=== PATIENT | female | born 1945 | race Caucasian/White ===

== ENCOUNTER 2020-06-21 14:52 | Emergency (ER) | payer MEDICARE, MEDICAID, SELFPAY ==
[2020-06-21] VITALS (20 sets, daily range): BP systolic 127–163; BP diastolic 62–76; PULSE 97–118; RESP 15–35; TEMP 36.2; O2SAT 97–100
--- NOTE | ~2020-06-21 | XR_ITS ---
EXAMINATION: XR chest 2V EXAM DATE: 06/21/2020 15:19 INDICATION: Shortness of breath with nonproductive cough. TECHNIQUE: Frontal and lateral projections of the chest obtained and reviewed. Comparison is made to prior examination from 06/01/2019. FINDINGS: The lungs are hyperinflated which can be seen with chronic obstructive pulmonary disease ( a clinical diagnosis of functional impairment), but is not diagnostic of it. The lungs are clear. Th ere are no pleural effusions. The cardiomediastinal silhouette is within normal limits. There is no pneumothorax suspected. The bones and soft tissues are unremarkable. IMPRESSION: 1. No acute cardiopulmonary findings. 2. Hyperinflation. Reviewed, dictated and finalized at location B. ER AND PACKER
--- NOTE | ~2020-06-21 | CT_ITS ---
EXAMINATION: CT brain wo con DATE: 06/21/2020 16:13 INDICATION: Dizziness. History of meningioma, cerebrovascular accident. TECHNIQUE: Computed tomography (CT) of the head was performed without intravenous contrast. The mA wa s adjusted according to patient size. Iterative reconstruction technique was employed. Exam dose: 60 5.33 mGy-cm total exam DLP. COMPARISON: 10/16/2017 CT brain FINDINGS: Again noted is a stable approximately 1.4 x 1.6 x 2.0 cm calcified extra-axial mass of the falx posterior to the splenium the corpus callosum consistent with heavily calcified meningioma. There is patchy nonspecific diminished attenuation of the subcortical and periventricular cerebral wh ite matter, likely due to chronic small vessel ischemic changes. There is prominent bilateral carotid siphon internal carotid artery calcification. A small chronic lacunar infarct is suggested near the head of the right caudate nucleus. No intracranial mass lesion or hemorrhage, midline shift or mass effect. No subdural or epidural brenda angel is detected. There is mild age-consistent cerebellar and cerebral volume loss. The right frontal sinus is not developed. The included paranasal sinuses are otherwise unremarkable. The mastoid air cells are normally developed and aerated. No fracture or bone destruction of the cranial vault. IMPRESSION: Stable prominent calcified meningioma of the falx Cerebral atherosclerosis and chronic small vessel ischemic changes of the cerebral white matter Small chronic lacunar infarct near the head of the right caudate nucleus Reviewed, dictated and finalized at [facility]. Reviewed, dictated and finalized at location A. E TOOL OPERATOR IMPRESSION: Stable prominent calcified meningioma of the falx Cerebral atherosclerosis and chronic small vessel ischemic changes of the cereb ral white matter Small chronic lacunar infarct near the head of the right caudate nucleus
--- NOTE | 2020-06-21 15:01 | ECG_ITS ---
Measurements Intervals [place] Rate: 104 P: 77 [place]: 125 QRS: 73 QRSD: 94 T: 59 QT: 371 QTc: 490 Interpretive Statements SINUS TACHYCARDIA POSSIBLE LEFT ATRIAL ENLARGEMENT BORDERLINE R WAVE PROGRESSION, ANTERIOR LEADS BASELINE WANDER- I, II, AVR, AVL, AVF, V1-V6 BORDERLINE ECG Electronically Signed On 06-21-2020 16:05:23 ENVELOPE MAKER by Demarcus Barnard D.O.
[2020-06-21 15:30] LABS: Basophils Absolute Auto 0.1 K/mm3 (0.0-0.1); Basophils Percent Auto 0.4 % (0.2-1.2); Eosinophils Absolute Auto 0.8 K/mm3 (0-0.3); Eosinophils Percent Auto 7.1 % (0-4.4); Hemoglobin 13.9 g/dL (12.0-15.0); Immature Granulocyte Absolute 0.03 K/mm3 (0.00-0.031); Immature Granulocyte Percent A 0.3 % (0-0.5); Lymphocytes Absolute Auto 2.75 K/mm3 (0.9-3.2); Lymphocytes Percent Auto 24.6 % (18.3-44.2); Mean Corpuscular HGB Conc 32.3 g/dl (32-36); Mean Corpuscular Hemoglobin 31.2 pg (26-34); Mean Corpuscular Volume 96.6 fl (80-100); Mean Platelet Volume 11.4 fl (7.4-10.4); Monocytes Absolute Auto 1.3 K/mm3 (0.1-0.6); Monocytes Percent Auto 11.8 % (2.6-8.5); Neutrophils Absolute Auto 6.2 K/mm3 (1.3-6.7); Neutrophils Percent Auto 55.8 % (45.5-73.1); Platelet Count Result 264 k/mm3 (150-375); Red Blood Count 4.45 M/mm3 (4.2-5.4); Red Cell Distribution Width 13.1 % (11.5-14.5); White Blood Count 11.2 K/mm3 (4.5-10.0)
[2020-06-21 15:45] LABS: Anion Gap 6 mmol/L (8-16); Blood Urea Nitrogen 23 mg/dL (7-17); Calcium 9.2 mg/dL (8.4-10.2); Carbon Dioxide 36 mmol/L (22-30); Chloride 100 mmol/L (98-107); Estimated CRCL calculation 44 ml/min; Estimated Glomerular Filt Rate > 60; Glucose 103 mg/dL (65-105); Potassium 3.8 mmol/L (3.4-5.0); Sodium 142 mmol/L (137-145)
[2020-06-21] MEDS: IPRATROPIUM BR 0.02% INH SOLN 0.5 MG/2.5 ML VIAL 1 MG INHALATION (15:45)
[2020-06-21] MEDS: ALBUTEROL SULFATE NEB 2.5 MG/0.5 ML INH 15 MG INHALATION (15:45)
[2020-06-21 16:01] LABS: NT Pro B Type Natriuretic Pept 96 PG/ML (5-100)
--- NOTE | 2020-06-21 17:27 | PC.NURSE ---
Placed on 2l NC after nebulizer completed. SPO2 98%.
--- NOTE | 2020-06-21 18:34 | PC.NURSE ---
Ambulatory to bathroom using 02. Tolerated well without dyspnea.
--- NOTE | 2020-06-21 18:39 | ED.SOB ---
HPI - SOB/Dyspnea General Chief Complaint: Shortness of Breath/Dyspnea Stated Complaint: SOB Time Seen by Provider: 06/21/20 14:58 History of Present Illness HPI Narrative: Patient is a 75-year-old female presents to the ER with shortness of breath. Ongoing for the last month associated chest tightness. No runny nose/sore throat/productive cough. Denies sick contacts. No fevers or chills or sweats. Has history of emphysema and is chronically oxygen dependent. No increasing oxygen requirement. Has been using her nebulizer at home without improvement. Contacted her PCP today who referred her to the hospital. Patient reports a month ago she was able to paint a room in her home and redo the plaster, today she can only walk from her bedroom to her kitchen and then take a break before then proceeding to the bathroom. Related Data Home Medications Medication Instructions Recorded Confirmed Spiriva with HandiHaler 1 cap INHALATION DAILY 06/01/19 06/02/19 albuterol sulfate [ProAir HFA] 90 mcg INHALATION Q4HWA 06/01/19 06/02/19 budesonide-formoterol [Symbicort] 2 puff INHALATION BID 06/01/19 06/02/19 cetirizine 10 mg PO DAILY 06/01/19 06/02/19 clopidogrel 75 mg PO DAILY 06/01/19 06/02/19 ezetimibe 10 mg PO DAILY 06/01/19 06/02/19 montelukast [Singulair] 10 mg PO HS 06/01/19 06/02/19 rosuvastatin 10 mg PO DAILY 06/01/19 06/02/19 furosemide [Lasix] 40 mg PO DAILY 06/02/19 06/02/19 amlodipine 06/21/20 clonazepam 06/21/20 Allergies Allergy/AdvReac Type Severity Reaction Status Date / Time Penicillins Allergy Unknown hives, Verified 06/21/20 15:02 tongue swelling sertraline AdvReac Mild Other Verified 06/21/20 15:02 Review of Systems Review of Systems: All systems reviewed & are unremarkable except as noted in HPI and below Constitutional: Constitutional: Denies chills, Denies fever(s) and Denies weakness ENT: Denies nasal congestion and Denies sore throat Cardiovascular: Cardiovascular: Reports chest pain, Denies rapid heart rate and Denies radiating jaw, neck or arm pain Respiratory: Respiratory: Denies chest congestion, Denies cough, Reports dyspnea and Reports wheezing Gastrointestinal: Gastrointestinal: Denies abdominal pain, Denies nausea and Denies vomiting Neurologic: Denies syncope, Denies focal weakness and Denies numbness PMFSH Past Medical History Medical History (Updated 06/21/20 @ 18:47 by Tommie Coleman MD) Anemia Anxiety Arthritis Asthma Bronchitis Depression Hemorrhoids History of heart attack Kidney stones Osteoporosis Pneumonia Scoliosis Skin cancer Uterine fibroid UTI (urinary tract infection) Surgical History Surgical History (Updated 06/02/19 @ 19:37 by Reba Badillo PA-C) H/O bilateral oophorectomy H/O: hysterectomy Hx of appendectomy Hx of LASIK Hx of tonsillectomy Social History Social History (Updated 06/01/19 @ 21:30 by Hawa Omer) Smoking packs per day: 3 Smoking cigarettes per day: 60.0 Years smoked: 55 Smoking pack-years: 165.00 Smoking status: Former smoker Tobacco type: cigarettes Second hand tobacco smoke exposure: Yes Alcohol intake: never Substance use: never Gender identity (if verbalized by the patient): Female Spiritual care concerns: No Agree to blood products: Yes Exam Narrative: Exam Narrative: GENERAL: Well-appearing, well-nourished, and in no acute distress. HEAD: Normocephalic, atraumatic. ENT: Mucous membranes moist. CHEST: Diminished throughout with some faint wheezing. Speaking in full sentences. HEART: Regular rate and rhythm. Normal peripheral pulses. ABDOMEN: Soft, nontender, nondistended. EXTREMITIES: Normal range of motion. No edema. SKIN: Warm, dry, no rash. NEURO: Alert and oriented x3. PSYCH: Normal mood and affect. Course Course Emergency Course: Patient is receiving hour-long nebulizer treatment. She feels much better and symptoms of resolved. She has been ambulatory without
[2020-06-21] MEDS: predniSONE 20 MG TABLET 60 MG PO (19:00)
== END 2020-06-21 19:01 | disposition home or self-care (01) ==
PROVIDERS: Emergency Provider Emergency Medicine; PCP Nurse Practitioner Family
DX: J44.9 Chronic obstructive pulmonary disease, unspecified (principal); Z87.891 Personal history of nicotine dependence; F41.9 Anxiety disorder, unspecified; M19.90 Unspecified osteoarthritis, unspecified site; F32.9 Major depressive disorder, single episode, unspecified; Z87.442 Personal history of urinary calculi; Z87.440 Personal history of urinary (tract) infections
CPT/HCPCS: 36415; 70450; 71046; 80048; 83880; 85025; 93005; 94640; 99284; J7512

== ENCOUNTER 2020-08-30 10:53 | Emergency (ER) | payer MEDICARE, MEDICAID, SELFPAY ==
[2020-08-30] VITALS (7 sets, daily range): BP systolic 125–173; BP diastolic 60–99; PULSE 90–105; RESP 15–24; TEMP 36.2; O2SAT 97–98
--- NOTE | ~2020-08-30 | XR_ITS ---
EXAMINATION: XR chest 1V portable DATE: 08/30/2020 11:51 INDICATION: Shortness of breath. TECHNIQUE: A single frontal view of the chest was obtained. COMPARISON: Chest 2 views 06/21/2020, chest CT 06/02/2019 FINDINGS: The lungs are hyperexpanded with lucencies, consistent with emphysema. No pleural effusion or pneumothorax. The heart size is normal. IMPRESSION: 1. Emphysema. Reviewed, dictated and finalized at location A. OPEDIC SHOE MAKER IMPRESSION: 1. Emphysema.
--- NOTE | 2020-08-30 11:17 | ECG_ITS ---
Measurements Intervals [place] Rate: 98 P: 69 [place]: 140 QRS: 60 QRSD: 86 T: 64 QT: 356 QTc: 456 Interpretive Statements SINUS RHYTHM LOW QRS VOLTAGE IN PRECORDIAL LEADS CANNOT RULE OUT SEPTAL INFARCT, AGE INDETERMINATE BORDERLINE ST-T WAVE ABNORMALITY- DIFFUSE LEADS BASELINE ARTIFACT- I, II, III, AVR, AVL, AVF, V1, V4-V6 ABNORMAL ECG Electronically Signed On 08-30-2020 11:38:19 CIGARETTE CATCHER by Dmearcus Barnard D.O.
[2020-08-30] MEDS: IPRATROPIUM BR 0.02% INH SOLN 0.5 MG/2.5 ML VIAL INHALATION (11:26)
[2020-08-30] MEDS: ALBUTEROL SULFATE NEB 2.5 MG/0.5 ML INH 5 MG INHALATION (11:27)
[2020-08-30 11:36] LABS: Basophils Absolute Auto 0.1 K/mm3 (0.0-0.1); Basophils Percent Auto 0.7 % (0.2-1.2); Eosinophils Absolute Auto 0.5 K/mm3 (0-0.3); Eosinophils Percent Auto 5.5 % (0-4.4); Hematocrit 43.1 % (37.0-47.0); Hemoglobin 14.1 g/dL (12.0-15.0); Immature Granulocyte Absolute 0.03 K/mm3 (0.00-0.031); Immature Granulocyte Percent A 0.3 % (0-0.5); Lymphocytes Absolute Auto 1.98 K/mm3 (0.9-3.2); Lymphocytes Percent Auto 21.5 % (18.3-44.2); Mean Corpuscular HGB Conc 32.7 g/dl (32-36); Mean Corpuscular Hemoglobin 30.3 pg (26-34); Mean Corpuscular Volume 92.7 fl (80-100); Mean Platelet Volume 11.1 fl (7.4-10.4); Monocytes Percent Auto 10.3 % (2.6-8.5); Neutrophils Absolute Auto 5.7 K/mm3 (1.3-6.7); Neutrophils Percent Auto 61.7 % (45.5-73.1); Platelet Count Result 279 k/mm3 (150-375); Red Blood Count 4.65 M/mm3 (4.2-5.4); Red Cell Distribution Width 12.9 % (11.5-14.5); White Blood Count 9.2 K/mm3 (4.5-10.0)
[2020-08-30 11:48] LABS: D Dimer 0.36 ug/mL (<0.48)
[2020-08-30 11:58] LABS: Alanine Aminotransferase 27 U/L (4-35); Albumin Level 4.1 g/dL (3.5-5.1); Alkaline Phosphatase 57 U/L (38-126); Anion Gap 5 mmol/L (8-16); Aspartate Amino Transferase 31 U/L (14-36); Bilirubin,Total 0.5 mg/dL (0.2-1.3); Blood Urea Nitrogen 18 mg/dL (7-17); Calcium 9.1 mg/dL (8.4-10.2); Carbon Dioxide 37 mmol/L (22-30); Chloride 100 mmol/L (98-107); Estimated CRCL calculation 50 ml/min; Estimated Glomerular Filt Rate > 60; Glucose 101 mg/dL (65-105); Potassium 3.7 mmol/L (3.4-5.0); Sodium 142 mmol/L (137-145)
[2020-08-30 12:15] LABS: Troponin I < 0.012 ng/mL (0.000-0.034)
--- NOTE | 2020-08-30 12:29 | ED.GENADULT ---
HPI - General Adult General Chief complaint: Shortness of Breath/Dyspnea Stated complaint: shortness of breath Time Seen by Provider: 08/30/20 10:56 Source: patient Mode of arrival: ambulatory Limitations: no limitations History of Present Illness HPI narrative: Patient with respiratory failure/emphysema presents with chief complaint of deep nonproductive cough for 1 week and feelings of shortness of breath on exertion. She states she has not had to increase her 3 L of oxygen via nasal cannula in order to ambulate however she feels short of breath. Patient denies any fever, chills, nausea, vomiting, diarrhea, headache or other fatigue. Patient states she was tested for Covid a couple weeks ago and it was negative. Patient states she has called her global account director office but has not received a call back. Patient states that she feels her cough is worse than her baseline cough and she feels that she has mucus that needs to be uplodged but that is not being excreted by cough. Patient denies having low oxygen saturation. Patient denies chest pain. Patient states she has been managed by her oyster fisherman but on her last cardiac cath a few months ago she was told that she did not have any blockages that required stenting. Patient states that she has been taking her albuterol Spiriva and Symbicort as instructed. She reported that she feels very congested in her chest this morning but after taking her medication she has felt improved. Related Data Home Medications Medication Instructions Recorded Confirmed Spiriva with HandiHaler 1 cap INHALATION DAILY 06/01/19 06/02/19 albuterol sulfate [ProAir HFA] 90 mcg INHALATION Q4HWA 06/01/19 06/02/19 budesonide-formoterol [Symbicort] 2 puff INHALATION BID 06/01/19 06/02/19 cetirizine 10 mg PO DAILY 06/01/19 06/02/19 clopidogrel 75 mg PO DAILY 06/01/19 06/02/19 ezetimibe 10 mg PO DAILY 06/01/19 06/02/19 montelukast [Singulair] 10 mg PO HS 06/01/19 06/02/19 rosuvastatin 10 mg PO DAILY 06/01/19 06/02/19 furosemide [Lasix] 40 mg PO DAILY 06/02/19 06/02/19 amlodipine 06/21/20 clonazepam 06/21/20 Allergies Allergy/AdvReac Type Severity Reaction Status Date / Time Penicillins Allergy Unknown hives, Verified 08/30/20 11:04 tongue swelling sertraline AdvReac Mild Other Verified 08/30/20 11:04 Review of Systems Review of Systems: Narrative: CONSTITUTIONAL: Denies fever, chills, or sweats. EYES: Denies visual changes, redness, or discharge. ENT: Denies rhinorrhea, congestion, sore throat, or otalgia. CARDIOVASCULAR: Denies chest pain, palpitations, or edema. RESPIRATORY: Reports cough and shortness of breath on exertion GASTROINTESTINAL: Denies abdominal pain, nausea, vomiting, or diarrhea. GENITOURINARY: Denies dysuria or hematuria. SKIN: Denies rash or itching. MUSCULOSKELETAL: Denies back pain, joint pain, or myalgia. NEUROLOGIC: Denies headache, numbness, dizziness, or weakness. PSYCHIATRIC: Denies anxiety or depression. [facility] Past Medical History Medical History (Updated 08/30/20 @ 13:27 by Martin De Dios PA-C) Anemia Anxiety Arthritis Asthma Bronchitis Depression Hemorrhoids History of heart attack Kidney stones Osteoporosis Pneumonia Scoliosis Skin cancer Uterine fibroid UTI (urinary tract infection) Surgical History Surgical History (Updated 06/02/19 @ 19:37 by Reba Badillo PA-C) H/O bilateral oophorectomy H/O: hysterectomy Hx of appendectomy Hx of LASIK Hx of tonsillectomy Social History Social History (Updated 06/01/19 @ 21:30 by Hawa Omer) Smoking packs per day: 3 Smoking cigarettes per day: 60.0 Years smoked: 55 Smoking pack-years: 165.00 Smoking status: Former smoker Tobacco type: cigarettes Second hand tobacco smoke exposure: Yes Alcohol intake: never Substance use: never Gender identity (if verbalized by the patient): Female Spiritual care concerns: No Agree to blood products: Yes Exam Narrative: Exam N
--- NOTE | 2020-08-30 12:57 | PC.NURSE ---
ambulated pt, pt ambulated very well. pt did state she was a little light headed
[2020-08-30 13:28] LABS: Add Urine Microscopic? NO; Appearance Urine Clear (Clear); Bilirubin Urine Negative (Negative); Blood Urine Negative (Negative); Color Urine Yellow (Yellow); Glucose Urine UA Negative (Negative); Ketones Urine Negative (Negative); Leukocyte Esterase Ur Negative LEU/UL (Negative); Nitrate Urine Negative (Negative); Protein Urine Negative (Negative); Specific Grav Ur 1.012 (1.001-1.035); Urobilinogen Urine Negative mg/dL (<2.0)
== END 2020-08-30 13:44 | disposition home or self-care (01) ==
PROVIDERS: Physician Assistant; Emergency Provider Emergency Medicine; PCP Nurse Practitioner Family
DX: J43.9 Emphysema, unspecified (principal); F41.9 Anxiety disorder, unspecified; M19.90 Unspecified osteoarthritis, unspecified site; J45.909 Unspecified asthma, uncomplicated; F32.9 Major depressive disorder, single episode, unspecified
CPT/HCPCS: 36415; 71045; 80053; 81003; 84484; 85025; 85380; 93005; 94640; 99284

== ENCOUNTER 2020-10-27 18:44 | Inpatient (IN) | payer MEDICARE, MEDICAID, SELFPAY ==
[2020-10-27] VITALS (8 sets, daily range): BP systolic 97–148; BP diastolic 64–84; PULSE 93–114; RESP 14–26; TEMP 36.4; O2SAT 99–100
--- NOTE | ~2020-10-27 | XR_ITS ---
XR chest 2V DATE: 10/30/2020 15:59 INDICATION: Shortness of breath. Hypertension, COPD. Atrial fibrillation. TECHNIQUE: PA and lateral views COMPARISON: 10/27/2020 portable AP chest at 1945 hours FINDINGS: There is bilateral hyperinflation consistent with history of COPD. No pulmonary infiltrate or consolidation, pleural effusion or pulmonary vascular congestion or pneumothorax is detected. Norm al heart size. Aortic calcification. Diffuse osteopenia. Mild dextro scoliosis of the thoracic spine. IMPRESSION: COPD No active pulmonary disease Reviewed, dictated and finalized at location A.
--- NOTE | ~2020-10-27 | XR_ITS ---
EXAMINATION: XR chest 1V portable DATE: 10/27/2020 19:46 INDICATION: Shortness of breath. TECHNIQUE: A single frontal view of the chest was obtained. COMPARISON: Chest single view 08/30/2020, chest CT 06/02/2019 FINDINGS: The lungs are hyperexpanded with lucencies, consistent with emphysema. There is mild atelec tasis in left lower lung zone. No pleural effusion or pneumothorax. The heart size is normal. IMPRESSION: 1. Emphysema. 2. Mild atelectasis in left lower lung zone. Reviewed, dictated and finalized at location A.
--- NOTE | 2020-10-27 19:24 | ECG_ITS ---
Measurements Intervals [place] Rate: 96 P: 79 [place]: 128 QRS: 61 QRSD: 88 T: 78 QT: 368 QTc: 467 Interpretive Statements SINUS RHYTHM BORDERLINE ST ABNORMALITY- ANTEROLATERAL LEADS BORDERLINE ECG Electronically Signed On 10-27-2020 20:19:29 CDT by Demarcus Barnard D.O.
--- NOTE | 2020-10-27 19:34 | ED.SOB ---
HPI - SOB/Dyspnea General Chief Complaint: Shortness of Breath/Dyspnea Stated Complaint: difficulty breathing x 3 days Time Seen by Provider: 10/27/20 18:59 Source: patient Mode of arrival: EMS Limitations: no limitations History of Present Illness HPI Narrative: This is a 75 year old female with history of CHF, COPD, oxygen dependence 3LNC who presents for evaluation of worsening shortness of breath. She states she has been having worsening cough and wheezing for several weeks. She was evaluated by her pulmonology 3 weeks ago. She states she was using Spiriva inhaler, Symbicort inhaler and albuterol inhaler. She states her matrix worker took her off inhalers and placed her on neb budesonide, nebulized formoterol, Yupelri nebulized . She states she does not think the nebulized medication are working. Over the past 3-4 days she has been gasping for air with minimal exertion. EMS reports patient's oxygen saturation 92% on her 3 L so she given an albuterol nebulizer. She denies fever, chills, nausea, vomiting. She reports diarrhea 2 days ago but that has resolved. She has nonproductive cough. She has chronic leg edema. MD elicited complaint: shortness of breath Related Data Home Medications Medication Instructions Recorded Confirmed Spiriva with HandiHaler 1 cap INHALATION DAILY 06/01/19 10/28/20 albuterol sulfate [ProAir HFA] 1 puff INHALATION Q4H PRN 06/01/19 10/28/20 budesonide-formoterol [Symbicort] 2 puff INHALATION BID 06/01/19 10/28/20 cetirizine 10 mg PO DAILY 06/01/19 10/28/20 clopidogrel 75 mg PO DAILY 06/01/19 10/28/20 ezetimibe 10 mg PO DAILY 06/01/19 10/28/20 montelukast [Singulair] 10 mg PO HS 06/01/19 10/28/20 rosuvastatin 10 mg PO DAILY 06/01/19 10/28/20 furosemide [Lasix] 40 mg PO DAILY 06/02/19 10/28/20 amlodipine 7.5 mg PO DAILY 06/21/20 10/28/20 Allergies Allergy/AdvReac Type Severity Reaction Status Date / Time Penicillins Allergy Unknown hives, Verified 10/28/20 00:25 tongue swelling sertraline AdvReac Mild Other Verified 10/28/20 00:25 Review of Systems Review of Systems: All systems reviewed & are unremarkable except as noted in HPI and below Constitutional: Constitutional: Denies chills and Denies fever(s) ENT: Reports nasal congestion and Denies sore throat Cardiovascular: Cardiovascular: Denies chest pain Respiratory: Respiratory: Reports cough, Reports dyspnea and Reports wheezing Gastrointestinal: Gastrointestinal: Denies abdominal pain, Reports diarrhea, Denies nausea and Denies vomiting PMFSH Past Medical History Medical History Anemia Anxiety Arthritis Asthma Bronchitis Depression Hemorrhoids History of heart attack Kidney stones Osteoporosis Pneumonia Scoliosis Skin cancer Uterine fibroid UTI (urinary tract infection) Surgical History Surgical History H/O bilateral oophorectomy H/O: hysterectomy Hx of appendectomy Hx of LASIK Hx of tonsillectomy Family History Family History (Updated 10/28/20 @ 00:59 by Corazon Ozuna RN) Mother Diabetes mellitus Son CAD (coronary artery disease) Hypertension Social History Social History (Updated 06/01/19 @ 21:30 by Hawa Omer) Smoking packs per day: 3 Smoking cigarettes per day: 60.0 Years smoked: 55 Smoking pack-years: 165.00 Smoking status: Former smoker Tobacco type: cigarettes Second hand tobacco smoke exposure: Yes Alcohol intake: current Drinks per week: 2 Substance use: never Gender identity (if verbalized by the patient): Female Sexual Orientation (if Verbalized by the Patient): Straight or Heterosexual Spiritual care concerns: No Agree to blood products: Yes Exam Const: General: no acute distress and alert Orientation/consciousness: patient oriented x3 Eyes: EOM: EOMs intact bilaterally Resp: Effort & Inspection:
[2020-10-27] MEDS: methylPREDNISolone SOD SUCC 125 MG VIAL IV PUSH (19:43)
[2020-10-27] MEDS: IPRATROPIUM BR 0.02% INH SOLN 0.5 MG/2.5 ML VIAL 1 MG INHALATION (20:00)
[2020-10-27] MEDS: ALBUTEROL SULFATE NEB 2.5 MG/0.5 ML INH 10 MG INHALATION (20:00)
[2020-10-27 20:06] LABS: Basophils Absolute Auto 0.1 K/mm3 (0.0-0.1); Basophils Percent Auto 0.6 % (0.2-1.2); Eosinophils Absolute Auto 0.5 K/mm3 (0-0.3); Eosinophils Percent Auto 4.3 % (0-4.4); Hematocrit 43.2 % (37.0-47.0); Hemoglobin 13.8 g/dL (12.0-15.0); Immature Granulocyte Absolute 0.03 K/mm3 (0.00-0.031); Immature Granulocyte Percent A 0.3 % (0-0.5); Lymphocytes Absolute Auto 2.65 K/mm3 (0.9-3.2); Lymphocytes Percent Auto 25.4 % (18.3-44.2); Mean Corpuscular HGB Conc 31.9 g/dl (32-36); Mean Corpuscular Hemoglobin 29.6 pg (26-34); Mean Corpuscular Volume 92.7 fl (80-100); Mean Platelet Volume 11.6 fl (7.4-10.4); Monocytes Absolute Auto 1.3 K/mm3 (0.1-0.6); Monocytes Percent Auto 12.3 % (2.6-8.5); Neutrophils Percent Auto 57.1 % (45.5-73.1); Platelet Count Result 279 k/mm3 (150-375); Red Blood Count 4.66 M/mm3 (4.2-5.4); Red Cell Distribution Width 13.2 % (11.5-14.5); White Blood Count 10.4 K/mm3 (4.5-10.0)
[2020-10-27 20:08] LABS: Base Excess ABG 4.3 mEq/l (+/-2.0); Carboxyhemoglobin 0.3 % THb (0-2.0); Fractional Inspired Oxygen 32 %; HCO3 ABG 30.8 mEq/l (22.0-26.0); Methemoglobin ABG 0.3 %THb (0-1.5); Oxygen Content ABG 18.9 %vol (16.0-22.0); Oxygen Saturation ABG 96.8 % (95.0-100.0); Oxyhemoglobin 96.1 % THb (90.0-100.0); PCO2 ABG 53.7 mmHg (35.0-45.0); PO2 ABG 92.3 mmHg (80.0-100.0); PO2 FiO2 Ratio Arterial Blood 2.88 %; Reduced Hemoglobin 3.3 %THb (0-5.0); Total Hemoglobin 13.9 g/dL (12.0-18.0); pH ABG 7.376 (7.350-7.450)
[2020-10-27 20:09] LABS: Device NASAL CANNULA; Modified Allen's Test Pass; Site Drawn RIGHT RADIAL
[2020-10-27 20:18] LABS: INR 0.9; Prothrombin Time 12.4 Seconds (11.1-14.7)
[2020-10-27 20:19] LABS: Lactic Acid Reflex 0.8 mmol/L (0.7-2.1); Partial Thromboplastin Time 28.7 SECONDS (22.3-36.8)
[2020-10-27 20:20] LABS: Alanine Aminotransferase 26 U/L (4-35); Albumin Level 4.5 g/dL (3.5-5.1); Alkaline Phosphatase 57 U/L (38-126); Anion Gap 6 mmol/L (8-16); Aspartate Amino Transferase 33 U/L (14-36); Bilirubin,Total 0.2 mg/dL (0.2-1.3); Blood Urea Nitrogen 15 mg/dL (7-17); Calcium 9.8 mg/dL (8.4-10.2); Carbon Dioxide 33 mmol/L (22-30); Chloride 103 mmol/L (98-107); Estimated CRCL calculation 57 ml/min; Estimated Glomerular Filt Rate > 60; Glucose 111 mg/dL (65-105); Potassium 3.4 mmol/L (3.4-5.0); Sodium 142 mmol/L (137-145)
[2020-10-27 20:32] LABS: NT Pro B Type Natriuretic Pept 67 pg/mL (5-100); Troponin I < 0.012 ng/mL (0.000-0.034)
[2020-10-27 20:35] LABS: D Dimer 0.27 ug/mL (<0.48)
--- NOTE | 2020-10-27 23:39 | PM.IMHP ---
H&P: HPI History of Present Illness Date/Time: 10/27/20 23:39 Chief Complaint: shortness of breath Narrative: This is a 75 year old female with history of CHF, COPD, oxygen dependence 3LNC who presents for evaluation of worsening shortness of breath. She states she has been having worsening cough and wheezing for several weeks. She was evaluated by her pulmonology 3 weeks ago. She states she was using spiriva inhaler, symbicort inhaler and albuterol inhaler. She states her automatic pilot mechanic took her off inhaler and placed her on neb budesonide, nebulizd formoterol, Yupelri nebulized . She states she does not think the nebulized medication are working. Over the past 3-4 days she has been gasping for air with minimal exertion. EMS reports patient's oxygen saturation 92% on her 3 L so she given an albuterol nebulizer. She denies fever, chills, nausea, vomiting. She reports diarrhea 2 days ago but that has resolved. She has nonproductive cough. She has chronic leg edema. she as ken nebulizer and also solumeddroo. she is curretly feeling much better. she is admitted for continued treament. Review of Systems Review of Systems: Narrative: - CONSTITUTIONAL: Denies weight loss, fever and chills. - HEENT: Denies changes in vision and hearing - RESPIRATORY: reports SOB and cough. - CV: Denies palpitations and CP. - GI: Denies abdominal pain, nausea, vomiting and diarrhea. - : Denies dysuria and urinary frequency. - MSK: Denies myalgia and joint pain. - SKIN: Denies rash and pruritus. - NEUROLOGICAL: Denies headache and syncope. - PSYCHIATRIC: Denies recent changes in mood. Denies anxiety and depression. All systems reviewed & are unremarkable except as noted in HPI and below Constitutional: Constitutional: Reports fatigue and Reports weakness Neurologic: Reports weakness Endocrine: Endocrine: Reports fatigue [facility] Past Medical History Medical History Anemia Anxiety Arthritis Asthma Bronchitis Depression Hemorrhoids History of heart attack Kidney stones Osteoporosis Pneumonia Scoliosis Skin cancer Uterine fibroid UTI (urinary tract infection) Surgical History Surgical History H/O bilateral oophorectomy H/O: hysterectomy Hx of appendectomy Hx of LASIK Hx of tonsillectomy Family History Family History Mother Diabetes mellitus Son CAD (coronary artery disease) Hypertension Social History Social History (Updated 06/01/19 @ 21:30 by Hawa Omer) Smoking packs per day: 3 Smoking cigarettes per day: 60.0 Years smoked: 55 Smoking pack-years: 165.00 Smoking status: Former smoker Tobacco type: cigarettes Second hand tobacco smoke exposure: Yes Alcohol intake: current Drinks per week: 2 Substance use: never Gender identity (if verbalized by the patient): Female Sexual Orientation (if Verbalized by the Patient): Straight or Heterosexual Spiritual care concerns: No Agree to blood products: Yes Meds Home Medications and Allergies Home Medications Medication Instructions Recorded Confirmed Type Spiriva with HandiHaler 1 cap INHALATION DAILY 06/01/19 06/02/19 History albuterol sulfate [ProAir HFA] 90 mcg INHALATION Q4HWA 06/01/19 06/02/19 History budesonide-formoterol [Symbicort] 2 puff INHALATION BID 06/01/19 06/02/19 History cetirizine 10 mg PO DAILY 06/01/19 06/02/19 History clopidogrel 75 mg PO DAILY 06/01/19 06/02/19 History ezetimibe 10 mg PO DAILY 06/01/19 06/02/19 History montelukast [Singulair] 10 mg PO HS 06/01/19 06/02/19 History rosuvastatin 10 mg PO DAILY 06/01/19 06/02/19 History furosemide [Lasix] 40 mg PO DAILY 06/02/19 06/02/19 History amlodipine 06/21/20 History Allergies Allergy/AdvReac Type Severity Reaction Status Date / Time Penicillins Allergy Unknown hives, Verified 10/28/20 00:25 tongue sw
[2020-10-28] VITALS (19 sets, daily range): BP systolic 124–146; BP diastolic 65–74; PULSE 92–118; RESP 18–22; TEMP 35.9–36.6; O2SAT 96–99; BMI 28.8
--- NOTE | 2020-10-28 00:16 | ADMGEN ---
This patient, Roxana Child, was admitted to Medical Room 345-01. Patient/family oriented to hospital policies and general routines including ID bracelet, bed and alarms, visiting hours, pain management, procedures, bathroom and other care routines, personal items, smoking policy, room service/diet, and visiting hours. Information on how to activate the Rapid Response Team has been discussed. Patient/Family are encouraged to report perceived risks to care and to ask questions if they do not understand what they are told or what they should do.
[2020-10-28] MEDS: levoFLOXacin 500 MG/D5W 100 ML 500 MG/100 ML BAG 100 MG IVPB (00:22)
[2020-10-28] MEDS: MONTELUKAST SODIUM 10 MG TABLET PO ×2 (02:53→21:43)
[2020-10-28] MEDS: IPRATROPIUM BR 0.02% INH SOLN 0.5 MG/2.5 ML VIAL INHALATION ×4 (02:53→19:48)
[2020-10-28] MEDS: ALBUTEROL SULFATE NEB 2.5 MG/0.5 ML INH 5 MG INHALATION ×5 (02:53→19:48)
[2020-10-28] MEDS: ALBUTEROL SULFATE (*SP) AEROSOL 1 PUFF INHALATION (08:10)
[2020-10-28] MEDS: IPRATROPIUM BR 0.02% INH SOLN 0.5 MG/2.5 ML VIAL (09:00)
[2020-10-28] MEDS: LORazepam (*CRX) 1 MG TABLET PO ×2 (09:30→21:43)
[2020-10-28] MEDS: EZETIMIBE 10 MG TABLET PO (09:31)
[2020-10-28] MEDS: CLOPIDOGREL BISULFATE 75 MG TABLET PO (09:31)
[2020-10-28] MEDS: FUROSEMIDE 40 MG TABLET PO (09:31)
[2020-10-28] MEDS: LORATADINE 10 MG TABLET PO (09:31)
[2020-10-28] MEDS: amLODIPine BESYLATE 2.5 MG TABLET 7.5 MG PO (09:31)
[2020-10-28] MEDS: ROSUVASTATIN 10 MG TABLET PO (09:31)
--- NOTE | 2020-10-28 09:31 | PM.IMPN ---
Progress Note: A&P Assessment and Plan (1) Acute exacerbation of chronic obstructive airways disease: Code(s): J44.1 - Chronic obstructive pulmonary disease with (acute) exacerbation Status: Acute (2) Acute and chronic respiratory failure: Code(s): J96.20 - Acute and chronic respiratory failure, unspecified whether with hypoxia or hypercapnia Status: Acute (3) HTN (hypertension) with goal to be determined: Code(s): I10 - Essential (primary) hypertension Status: Acute (4) GERD (gastroesophageal reflux disease): Code(s): K21.9 - Gastro-esophageal reflux disease without esophagitis Status: Acute (5) Chronic respiratory failure: Code(s): J96.10 - Chronic respiratory failure, unspecified whether with hypoxia or hypercapnia Status: Acute Additional Plan 10/27/20 # Acute COPD exacerbation: solumedrol bid. levaquin iv. albuterol inhaler scheduled and prn. # Acute on chronic hypoxic respiratory failure: with above. continue oxyge supplemenation. curretly back to her usual oxygen supplementation. abg with mild hypercapnia well compensated. d dimer negative. tropin neative. mild pulmonar hpertensio. ECHO 19 PS 41 mmHg # diastolic dysfunction/ CHF: takes Lasix. does not look in exacerbation. continue home medications.. # Anxiety depression # hx of meningioma: seen neurology and neurosurgeon. # HTN:h ome meds # GERD: home meds # CAD: home meds # DVT Proph: lovenox 10/28/20 will increase Solu-Medrol to 60 t.i.d. Will add Ativan 1 mg p.o. t.i.d. p.r.n. patient is prescribed benzodiazepines in the outpatient setting she is not naive will increase scheduled DuoNebs Will add sleep aid melatonin Will add codeine for cough suppressant at night Will add Mucinex b.i.d. continue to monitor progress Case reviewed with RN at bedside Subjective Date/time seen: 10/28/20 09:31 Patient reports ongoing shortness of breath and cough causing her to become breathless. She additionally feels very anxious and attributed to the steroids. Plan of care reviewed extensively with patient and she is in agreement. She also states that she is DNR DNI and that her daughter (Who is her healthcare proxy) is aware and in agreement with her decision. Exam Narrative: Exam Narrative: GENERAL: chronically ill-appearing, not in acute distress HEENT: Nonicteric sclerae, poor dentition, EOMI. Conjunctivae appear well perfused. CHEST: Chest wall is nontender. HEART: Regular rate and rhythm without murmur, rubs, or gallops LUNGS: decreased breath sounds bilaterally, end expiratory wheezing no use of accessory muscles ABDOMEN: Soft, positive bowel sounds, non-tender, no organomegaly. SKIN: No rash, no excessive bruising, petechiae, or purpura. NEUROLOGIC: Cranial nerves II-XII intact, alert and oriented x 3, no gross motor deficits EXTREMITIES: no edema, cyanosis or clubbing Objective Data Vital Signs Vital Signs: Vital Signs - 24 hr 10/27/20 18:48 10/27/20 18:55 10/27/20 18:59 Temperature 97.6 F Pulse Rate 108 H 114 H Respiratory Rate 14 Blood Pressure 135/84 Pulse Oximetry 100 99 10/27/20 19:14 10/27/20 20:13 10/27/20 20:18 Temperature Pulse Rate 110 H 93 98 Respiratory Rate 22 H 22 H 26 H Blood Pressure 148/76 H 110/68 Pulse Oximetry 99 100 10/27/20 22:30 10/27/20 23:27 10/28/20 00:19 Temperature 96.7 F L Pulse Rate 98 105 H 105 H Respiratory Rate 24 H 26 H 22 H Blood Pressure 97/64 L 146/65 H Pulse Oximetry 99 99 10/28/20 02:54 10/28/20 03:02 10/28/20 03:03 Temperature Pulse Rate 111 H 103 H 105 H Respiratory Rate 18 18 18 Blood Pressure Pulse Oximetry 98 10/28/20 05:44 10/28/20 09:02 10/28/20 09:07 Temperature 96.8 F L Pulse Rate 105 H 115 H 118 H Respiratory Rate 18 18 18 Blood Pressure 137/74 Pulse Oximetry 98 10/28/20 09:10 Temperature Pulse Rate 118 H Respiratory Rate 18 Blood Pressure Pulse Oximetry 98 Intake/Output I
[2020-10-28 09:34] LABS: Troponin I < 0.012 ng/mL (0.000-0.034)
[2020-10-28] MEDS: guaiFENesin 12 HR 600 MG TABCR 1200 MG PO ×2 (10:22→21:45)
[2020-10-28] MEDS: methylPREDNISolone SOD SUCC 125 MG VIAL 60 MG IV PUSH ×3 (10:23→21:43)
[2020-10-28] MEDS: IBUPROFEN 400 MG TABLET PO (15:17)
[2020-10-28] MEDS: MELATONIN 5 MG TABLET PO (21:43)
[2020-10-28] MEDS: guaiFENesin/CODEINE (*CRX) 200/20 MG 10 ML SYRUP PO (21:43)
[2020-10-29] VITALS (21 sets, daily range): BP systolic 123–142; BP diastolic 62–80; PULSE 88–126; RESP 14–20; TEMP 36.6–36.7; O2SAT 92–98
[2020-10-29] MEDS: levoFLOXacin 500 MG/D5W 100 ML 500 MG/100 ML BAG 100 MG IVPB ×2 (00:48→23:15)
[2020-10-29] MEDS: ALBUTEROL SULFATE NEB 2.5 MG/0.5 ML INH 5 MG INHALATION ×7 (01:56→23:56)
[2020-10-29] MEDS: IPRATROPIUM BR 0.02% INH SOLN 0.5 MG/2.5 ML VIAL INHALATION ×7 (01:57→23:56)
[2020-10-29 06:20] LABS: Basophils Percent Auto 0.1 % (0.2-1.2); Hemoglobin 12.5 g/dL (12.0-15.0); Immature Granulocyte Absolute 0.14 K/mm3 (0.00-0.031); Immature Granulocyte Percent A 0.7 % (0-0.5); Lymphocytes Absolute Auto 1.04 K/mm3 (0.9-3.2); Lymphocytes Percent Auto 4.9 % (18.3-44.2); Mean Corpuscular HGB Conc 32.1 g/dl (32-36); Mean Corpuscular Hemoglobin 29.6 pg (26-34); Mean Corpuscular Volume 92.2 fl (80-100); Mean Platelet Volume 11.7 fl (7.4-10.4); Monocytes Percent Auto 4.8 % (2.6-8.5); Neutrophils Absolute Auto 18.9 K/mm3 (1.3-6.7); Neutrophils Percent Auto 89.5 % (45.5-73.1); Platelet Count Result 249 k/mm3 (150-375); Red Blood Count 4.23 M/mm3 (4.2-5.4); Red Cell Distribution Width 13.5 % (11.5-14.5); White Blood Count 21.1 K/mm3 (4.5-10.0)
[2020-10-29] MEDS: methylPREDNISolone SOD SUCC 125 MG VIAL 60 MG IV PUSH ×2 (06:23→14:09)
[2020-10-29 06:38] LABS: Potassium 3.6 mmol/L (3.4-5.0)
[2020-10-29 06:45] LABS: Anion Gap 1 mmol/L (8-16); Blood Urea Nitrogen 15 mg/dL (7-17); Calcium 9.1 mg/dL (8.4-10.2); Carbon Dioxide 37 mmol/L (22-30); Chloride 103 mmol/L (98-107); Estimated CRCL calculation 68 ml/min; Estimated Glomerular Filt Rate > 60; Glucose 148 mg/dL (65-105); Sodium 141 mmol/L (137-145)
[2020-10-29] MEDS: CLOPIDOGREL BISULFATE 75 MG TABLET PO (08:45)
[2020-10-29] MEDS: amLODIPine BESYLATE 2.5 MG TABLET 7.5 MG PO (08:45)
[2020-10-29] MEDS: LORATADINE 10 MG TABLET PO (08:45)
[2020-10-29] MEDS: EZETIMIBE 10 MG TABLET PO (08:45)
[2020-10-29] MEDS: guaiFENesin 12 HR 600 MG TABCR 1200 MG PO ×2 (08:45→20:28)
[2020-10-29] MEDS: FUROSEMIDE 40 MG TABLET PO (08:45)
[2020-10-29] MEDS: ROSUVASTATIN 10 MG TABLET PO (08:46)
[2020-10-29] MEDS: PANTOPRAZOLE 40 MG TABLET PO (09:32)
--- NOTE | 2020-10-29 17:48 | PM.IMPN ---
Progress Note: A&P Assessment and Plan (1) Acute exacerbation of chronic obstructive airways disease: Code(s): J44.1 - Chronic obstructive pulmonary disease with (acute) exacerbation Status: Acute (2) Acute and chronic respiratory failure: Code(s): J96.20 - Acute and chronic respiratory failure, unspecified whether with hypoxia or hypercapnia Status: Acute (3) HTN (hypertension) with goal to be determined: Code(s): I10 - Essential (primary) hypertension Status: Acute (4) GERD (gastroesophageal reflux disease): Code(s): K21.9 - Gastro-esophageal reflux disease without esophagitis Status: Acute (5) Chronic respiratory failure: Code(s): J96.10 - Chronic respiratory failure, unspecified whether with hypoxia or hypercapnia Status: Acute Additional Plan 10/27/20 # Acute COPD exacerbation: solumedrol bid. levaquin iv. albuterol inhaler scheduled and prn. # Acute on chronic hypoxic respiratory failure: with above. continue oxyge supplemenation. curretly back to her usual oxygen supplementation. abg with mild hypercapnia well compensated. d dimer negative. tropin neative. mild pulmonar hpertensio. ECHO 19 PS 41 mmHg # diastolic dysfunction/ CHF: takes Lasix. does not look in exacerbation. continue home medications.. # Anxiety depression # hx of meningioma: seen neurology and neurosurgeon. # HTN:home meds # GERD: home meds # CAD: home meds # DVT Proph: lovenox 10/28/20 will increase Solu-Medrol to 60 t.i.d. Will add Ativan 1 mg p.o. t.i.d. p.r.n. patient is prescribed benzodiazepines in the outpatient setting she is not naive will increase scheduled DuoNebs Will add sleep aid melatonin Will add codeine for cough suppressant at night Will add Mucinex b.i.d. continue to monitor progress Case reviewed with RN at bedside 10/29/2020 Patient improving slowly has significant underlying lung disease oxygen dependent in the outpatient setting Decrease Solu-Medrol to 40 b.i.d. Decrease Ativan 1 mg p.o. b.i.d. p.r.n. Continue DuoNebs, guaifenesin with codeine at night, melatonin, Continue supplemental oxygen Continue breathing treatments Possible discharge home in 48-72 hours Subjective Date/time seen: 10/29/20 17:48 Patient reports that she is feeling better cough is minimal she did have difficulty sleeping last night because she was awoken multiple times of people entering and leaving her room she is advised that we will try to limit that tonight for at least 5 consecutive hours to provide her with adequate sleep. Exam Narrative: Exam Narrative: GENERAL: chronically ill-appearing, not in acute distress HEENT: Nonicteric sclerae, poor dentition, EOMI. Conjunctivae appear well perfused. HEART: Regular rate and rhythm peripheral pulses symmetric LUNGS: decreased breath sounds bilaterally, no wheezing no use of accessory muscles ABDOMEN: Soft, positive bowel sounds, non-tender, no organomegaly. SKIN: No rash, no excessive bruising, petechiae, or purpura. NEUROLOGIC: Cranial nerves II-XII intact, alert and oriented x 3, no gross motor deficits EXTREMITIES: no edema, cyanosis or clubbing Objective Data Vital Signs Vital Signs: Vital Signs - 24 hr 10/28/20 19:48 10/28/20 19:49 10/28/20 20:05 Temperature Pulse Rate 108 H 108 H 92 Respiratory Rate 20 20 20 Blood Pressure Pulse Oximetry 98 10/28/20 20:12 10/28/20 23:00 10/29/20 01:30 Temperature 98 F Pulse Rate 111 H 100 Respiratory Rate 20 20 Blood Pressure 131/74 Pulse Oximetry 97 96 10/29/20 01:45 10/29/20 04:49 10/29/20 04:50 Temperature Pulse Rate 90 100 Respiratory Rate 20 20 Blood Pressure Pulse Oximetry 96 10/29/20 05:03 10/29/20 06:10 10/29/20 08:45 Temperature 97.9 F Pulse Rate 96 104 H Respiratory Rate 20 14 Blood Pressure 123/63 Pulse Oximetry 98 98 10/29/20 08:50 10/29/20 09:00 10/29/20 12:50 Temperature Pulse Rate 95 96 95 Respiratory Rate 20 20 20
[2020-10-29] MEDS: MONTELUKAST SODIUM 10 MG TABLET PO (20:29)
[2020-10-29] MEDS: methylPREDNISolone SOD SUCC 40 MG VIAL IV PUSH (20:29)
[2020-10-29] MEDS: MELATONIN 5 MG TABLET PO (20:29)
[2020-10-29] MEDS: guaiFENesin/CODEINE (*CRX) 200/20 MG 10 ML SYRUP PO (20:48)
[2020-10-29] MEDS: LORazepam (*CRX) 1 MG TABLET PO (23:20)
[2020-10-30] VITALS (19 sets, daily range): BP systolic 124–146; BP diastolic 70–80; PULSE 88–120; RESP 18–20; TEMP 36–36.6; O2SAT 95–98
[2020-10-30] MEDS: ALBUTEROL SULFATE NEB 2.5 MG/0.5 ML INH 5 MG INHALATION ×5 (03:33→19:51)
[2020-10-30] MEDS: IPRATROPIUM BR 0.02% INH SOLN 0.5 MG/2.5 ML VIAL INHALATION ×5 (03:34→19:51)
[2020-10-30 06:05] LABS: Blood Urea Nitrogen 19 mg/dL (7-17); Calcium 9.2 mg/dL (8.4-10.2); Carbon Dioxide > 40 mmol/L (22-30); Chloride 100 mmol/L (98-107); Estimated CRCL calculation 58 ml/min; Estimated Glomerular Filt Rate > 60; Glucose 144 mg/dL (65-105); Magnesium 2.1 mg/dL (1.6-2.3); Potassium 3.1 mmol/L (3.4-5.0); Sodium 142 mmol/L (137-145)
[2020-10-30] MEDS: EZETIMIBE 10 MG TABLET PO (08:07)
[2020-10-30] MEDS: LORATADINE 10 MG TABLET PO (08:07)
[2020-10-30] MEDS: amLODIPine BESYLATE 5 MG TABLET 10 MG PO (08:07)
[2020-10-30] MEDS: CLOPIDOGREL BISULFATE 75 MG TABLET PO (08:08)
[2020-10-30] MEDS: methylPREDNISolone SOD SUCC 40 MG VIAL IV PUSH ×2 (08:08→20:56)
[2020-10-30] MEDS: guaiFENesin 12 HR 600 MG TABCR 1200 MG PO ×2 (08:08→20:54)
[2020-10-30] MEDS: ROSUVASTATIN 10 MG TABLET PO (08:08)
[2020-10-30] MEDS: PANTOPRAZOLE 40 MG TABLET PO (08:08)
[2020-10-30] MEDS: FUROSEMIDE 40 MG TABLET PO (08:08)
[2020-10-30 08:42] LABS: Basophils Percent Auto 0.1 % (0.2-1.2); Hematocrit 40.7 % (37.0-47.0); Hemoglobin 12.9 g/dL (12.0-15.0); Immature Granulocyte Absolute 0.15 K/mm3 (0.00-0.031); Immature Granulocyte Percent A 0.7 % (0-0.5); Lymphocytes Absolute Auto 1.05 K/mm3 (0.9-3.2); Lymphocytes Percent Auto 5.1 % (18.3-44.2); Mean Corpuscular HGB Conc 31.7 g/dl (32-36); Mean Corpuscular Hemoglobin 29.5 pg (26-34); Mean Corpuscular Volume 92.9 fl (80-100); Mean Platelet Volume 12.2 fl (7.4-10.4); Monocytes Absolute Auto 1.3 K/mm3 (0.1-0.6); Monocytes Percent Auto 6.2 % (2.6-8.5); Neutrophils Absolute Auto 17.9 K/mm3 (1.3-6.7); Neutrophils Percent Auto 87.9 % (45.5-73.1); Platelet Count Result 268 k/mm3 (150-375); Red Blood Count 4.38 M/mm3 (4.2-5.4); Red Cell Distribution Width 13.7 % (11.5-14.5); White Blood Count 20.4 K/mm3 (4.5-10.0)
[2020-10-30] MEDS: POTASSIUM CHLORIDE 20 MEQ TABLET.ER 40 MEQ PO (15:06)
--- NOTE | 2020-10-30 16:30 | PM.IMPN ---
Progress Note: A&P Assessment and Plan (1) Acute exacerbation of chronic obstructive airways disease: Code(s): J44.1 - Chronic obstructive pulmonary disease with (acute) exacerbation Status: Acute Assessment and Plan: see acute on chronic respiratory failure plan Solu-Medrol was 60 t.i.d. Decrease Solu-Medrol to 40 b.i.d. Ativan 1 mg p.o. t.i.d. p.r.n. patient is prescribed benzodiazepines in the outpatient setting she is not naive decreased Ativan to 0.5 mg BID PRN. continue scheduled DuoNebs continue sleep aid melatonin continue PRN codeine for cough suppressant at night continue Mucinex b.i.d. (2) Acute and chronic respiratory failure: Code(s): J96.20 - Acute and chronic respiratory failure, unspecified whether with hypoxia or hypercapnia Status: Acute Assessment and Plan: resolved at this time see the plan for acute on chronic COPD plan Acute COPD exacerbation: solumedrol bid. levaquin iv. albuterol inhaler scheduled and prn. Acute on chronic hypoxic respiratory failure: abg with mild hypercapnia well compensated. d dimer negative. tropin negative. following above plan. continue additional supplemental oxygen currently back to her usual L O2 NC. mild pulmonar hpertensio. ECHO 19 PS 41 mmHg diastolic dysfunction/ CHF: takes Lasix. does not look like CHF exacerbation. continue home medications.. (3) HTN (hypertension) with goal to be determined: Code(s): I10 - Essential (primary) hypertension Status: Acute Assessment and Plan: continue home meds for hypertension including Norvasc, Lasix continue home meds for cholesterol including statin home meds continue home meds for CAD including Plavix # DVT Proph: lovenox (4) GERD (gastroesophageal reflux disease): Code(s): K21.9 - Gastro-esophageal reflux disease without esophagitis Status: Acute Assessment and Plan: no complaints of GERD or reflux, no chest pain at this time continue daily pantoprazole dose may use [id number] Pepcid as needed stay upright after meals for 2 hours (5) Chronic respiratory failure: Code(s): J96.10 - Chronic respiratory failure, unspecified whether with hypoxia or hypercapnia Status: Acute Assessment and Plan: continue to follow closely with her [employer] rep outpatient on a routine and schedule basis, every 3 months or more often as needed. avoid running out of pulmonary medications continue allergy medicine to avoid exacerbations caused by triggers or seasonal allergies seek treatment from primary care provider to avoid anxiety triggers Subjective Date/time seen: 10/30/20 16:30 Roxana is feeling better today than she did at her admission. She does not quite feel herself yet or ready for discharge. She says she is still very shaky, unsteady, and has some mild shortness of breath. I have encouraged her to walk more PT OT is seeing her. Ordered a chest x-ray, she is already on her home O2 level of 3 L. She sees [employer] rep Dr. Brandt. Her white count is staying stable yesterday 21.1, today 20.4; no fevers. She is on 40 IV steroids b.i.d. today. Tomorrow plan for her to wean to 60 mg day with a very slow taper and go home on oral steroids. She can continue her Levaquin dosing for bronchiolitis. Her chest x-ray today did not show any new or concerning infection. I added Zyrtec today. And I continue to wean her Ativan from 1 mg b.i.d. p.r.n. to 0.5 mg BID PRN. Planning for discharge home tomorrow, if she improves or stays stable overnight. Review of Systems Review of Systems: All systems reviewed & are unremarkable except as noted in HPI and below Constitutional: Constitutional: Reports as per HPI, Denies chills, Reports fatigue, Denies fever(s), Reports malaise and Reports weakness Eyes: Eyes: Reports as per HPI, Denies exophthalmos, Denies diplopia, Denies floaters and Denies loss of peripheral vision ENT: Reports as per H
[2020-10-30] MEDS: MONTELUKAST SODIUM 10 MG TABLET PO (20:55)
[2020-10-30] MEDS: MELATONIN 5 MG TABLET PO (20:55)
[2020-10-30] MEDS: levoFLOXacin 500 MG/D5W 100 ML 500 MG/100 ML BAG 100 MG IVPB (23:02)
[2020-10-31] VITALS (22 sets, daily range): BP systolic 131–143; BP diastolic 77–80; PULSE 74–127; RESP 16–20; TEMP 36.1–36.2; O2SAT 96–100
[2020-10-31] MEDS: ALBUTEROL SULFATE NEB 2.5 MG/0.5 ML INH 5 MG INHALATION ×6 (00:18→20:01)
[2020-10-31] MEDS: IPRATROPIUM BR 0.02% INH SOLN 0.5 MG/2.5 ML VIAL INHALATION ×6 (00:18→20:01)
[2020-10-31 05:59] LABS: Hematocrit 41.3 % (37.0-47.0); Hemoglobin 13.3 g/dL (12.0-15.0); Mean Corpuscular HGB Conc 32.2 g/dl (32-36); Mean Corpuscular Volume 90.2 fl (80-100); Mean Platelet Volume 11.8 fl (7.4-10.4); Platelet Count Result 273 k/mm3 (150-375); Red Blood Count 4.58 M/mm3 (4.2-5.4); Red Cell Distribution Width 13.6 % (11.5-14.5); White Blood Count 14.1 K/mm3 (4.5-10.0)
[2020-10-31 06:22] LABS: Anion Gap 2 mmol/L (8-16); Blood Urea Nitrogen 17 mg/dL (7-17); Calcium 9.4 mg/dL (8.4-10.2); Carbon Dioxide 38 mmol/L (22-30); Chloride 100 mmol/L (98-107); Estimated CRCL calculation 68 ml/min; Estimated Glomerular Filt Rate > 60; Glucose 151 mg/dL (65-105); Phosphorus 3.6 mg/dL (2.5-4.5); Potassium 3.5 mmol/L (3.4-5.0); Sodium 140 mmol/L (137-145)
[2020-10-31 06:30] LABS: NT Pro B Type Natriuretic Pept 230 pg/mL (5-100)
[2020-10-31] MEDS: ROSUVASTATIN 10 MG TABLET PO (08:46)
[2020-10-31] MEDS: FUROSEMIDE 40 MG TABLET PO (08:47)
[2020-10-31] MEDS: EZETIMIBE 10 MG TABLET PO (08:48)
[2020-10-31] MEDS: CLOPIDOGREL BISULFATE 75 MG TABLET PO (08:48)
[2020-10-31] MEDS: guaiFENesin 12 HR 600 MG TABCR 1200 MG PO ×2 (08:48→20:37)
[2020-10-31] MEDS: PANTOPRAZOLE 40 MG TABLET PO (08:49)
[2020-10-31] MEDS: amLODIPine BESYLATE 5 MG TABLET 10 MG PO (08:49)
[2020-10-31] MEDS: LORATADINE 10 MG TABLET PO (08:49)
[2020-10-31] MEDS: methylPREDNISolone SOD SUCC 40 MG VIAL IV PUSH ×2 (08:50→20:37)
[2020-10-31] MEDS: POTASSIUM CHLORIDE 20 MEQ TABLET.ER 40 MEQ PO (10:23)
--- NOTE | 2020-10-31 13:01 | PM.IMPN ---
Progress Note: A&P Assessment and Plan (1) Acute exacerbation of chronic obstructive airways disease: Code(s): J44.1 - Chronic obstructive pulmonary disease with (acute) exacerbation Status: Acute Assessment and Plan: Pt is feeling a bit worse today with the decrease in steroids but really wanting to go home -explained to her that she needs to continue IV steroids for now at 40mg BID and see how she does overnight -Continued scheduled Duonebs -Continue symbicort -cxr 10/30/20 showed COPD with no active pulmonary disease -d-dimer neg, PE felt to be less likely -continue PRN codeine for cough suppressant at night and PRN mucinex -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 (2) Acute and chronic respiratory failure: Code(s): J96.20 - Acute and chronic respiratory failure, unspecified whether with hypoxia or hypercapnia Status: Acute Assessment and Plan: resolved at this time, she is back to her home 3L of o2 -see above (3) HTN (hypertension) with goal to be determined: Code(s): I10 - Essential (primary) hypertension Status: Acute Assessment and Plan: Last bp 143/80 -Continue norvasc and lasix (4) GERD (gastroesophageal reflux disease): Code(s): K21.9 - Gastro-esophageal reflux disease without esophagitis Status: Acute Assessment and Plan: Chronic, no acute symptoms -continue protonix (5) Chronic respiratory failure: Code(s): J96.10 - Chronic respiratory failure, unspecified whether with hypoxia or hypercapnia Status: Acute Assessment and Plan: as above (6) Sinus tachycardia: Code(s): R00.0 - Tachycardia, unspecified Status: Acute Assessment and Plan: Chronic component -Pt has no CP -d-dimer neg, PE less likely -likely due to lung disease -monitor Time Spent With Patient Time with patient: 25 - 35 minutes Subjective Date/time seen: 10/31/20 13:01 Interval history: Pt is a 75 y/o female here for COPD exacerbation. Pt was seen today and states she is feeling worse today. She said she is wheezing more and coughing more than the last few days. She thinks this is because her steroids were decreased. She has had no CP or palpitations overnight or today. She had a BM today which was normal for her. Review of Systems Review of Systems: All systems reviewed & are unremarkable except as noted in HPI and below Exam Narrative: Exam Narrative: General: elderly pt resting on the side of the bed in NAD HEENT: normocephalic Neck: supple Neuro: Alert and oriented x4 CV:slightly tachycardic on exam. Tele shows sinus tachy 110 with occasional PVC Resp:tight chest with wheezing throughout. 3L of home o2 applied Abd: Soft, non distended. No pain to palpation. Positive bowel sounds Extremities: No swelling, erythema, or pain to palpation. Objective Data Vital Signs Vital Signs: Vital Signs - 24 hr 10/30/20 14:19 10/30/20 16:00 10/30/20 16:27 Temperature 96.8 F L Pulse Rate 120 H 102 H 96 Respiratory Rate 18 20 Blood Pressure 124/70 Pulse Oximetry 98 10/30/20 17:14 10/30/20 19:45 10/30/20 19:46 Temperature Pulse Rate 100 100 96 Respiratory Rate 20 20 20 Blood Pressure Pulse Oximetry 95 10/30/20 20:00 10/30/20 20:20 10/30/20 21:03 Temperature 97.3 F L Pulse Rate 96 116 H Respiratory Rate 20 18 Blood Pressure 146/70 H Pulse Oximetry 98 98 10/31/20 00:00 10/31/20 00:05 10/31/20 00:18 Temperature Pulse Rate 113 H 100 88 Respiratory Rate 20 20 Blood Pressure Pulse Oximetry 10/31/20 04:00 10/31/20 04:08 10/31/20 04:20 Temperature Pulse Rate 97 92 96 Respiratory Rate 20 20 Blood Pressure Pulse Oximetry 10/31/20 06:00 10/31/20 08:00 10/31/20 08:21 Temperature 97.1 F L Pulse Rate 111 H 127 H 74 Respiratory Rate 18 20 Blood Pressure 143/80 H Pulse Oximetry 100 96 10/31/20 08:28 10/31/20 12:00
--- NOTE | 2020-10-31 13:55 | PC.NURSE ---
Observed and reviewed both care delivered and charting for REYNALDO Zayas Cheryl today from [phone]
[2020-10-31] MEDS: MELATONIN 5 MG TABLET PO (20:37)
[2020-10-31] MEDS: MONTELUKAST SODIUM 10 MG TABLET PO (20:38)
[2020-10-31] MEDS: levoFLOXacin 500 MG/D5W 100 ML 500 MG/100 ML BAG 100 MG IVPB (23:55)
[2020-11-01] VITALS (12 sets, daily range): BP systolic 125; BP diastolic 67; PULSE 91–123; RESP 18–20; TEMP 36.1; O2SAT 99
[2020-11-01] MEDS: LORazepam (*CRX) 0.5 MG TABLET PO (00:05)
[2020-11-01] MEDS: ALBUTEROL SULFATE NEB 2.5 MG/0.5 ML INH 5 MG INHALATION ×4 (00:19→11:06)
[2020-11-01] MEDS: IPRATROPIUM BR 0.02% INH SOLN 0.5 MG/2.5 ML VIAL INHALATION ×4 (00:19→11:06)
[2020-11-01] MEDS: ROSUVASTATIN 10 MG TABLET PO (08:11)
[2020-11-01] MEDS: CLOPIDOGREL BISULFATE 75 MG TABLET PO (08:11)
[2020-11-01] MEDS: amLODIPine BESYLATE 5 MG TABLET 10 MG PO (08:11)
[2020-11-01] MEDS: FUROSEMIDE 40 MG TABLET PO (08:11)
[2020-11-01] MEDS: guaiFENesin 12 HR 600 MG TABCR 1200 MG PO (08:11)
[2020-11-01] MEDS: PANTOPRAZOLE 40 MG TABLET PO (08:11)
[2020-11-01] MEDS: LORATADINE 10 MG TABLET PO (08:11)
[2020-11-01] MEDS: methylPREDNISolone SOD SUCC 40 MG VIAL IV PUSH (08:12)
[2020-11-01] MEDS: POTASSIUM CHLORIDE 20 MEQ TABLET.ER 40 MEQ PO (08:12)
[2020-11-01] MEDS: EZETIMIBE 10 MG TABLET PO (08:12)
--- NOTE | 2020-11-01 13:41 | PM.DS ---
DS: Admitting Diagnosis Admitting Diagnosis Admitting Diagnosis: COPD exacerbation <DARIUSZ MolinaC - Last Filed: 11/01/20 14:37> DS: Discharge Diagnosis Discharge Diagnosis (1) Acute exacerbation of chronic obstructive airways disease: Code(s): J44.1 - Chronic obstructive pulmonary disease with (acute) exacerbation <DARIUSZ MolinaC - Last Filed: 11/01/20 14:37> Status: Acute <DARIUSZ MolinaC - Last Filed: 11/01/20 14:37> Assessment and Plan: Pt feels better today. She says she still feels SOB but much better than when she came in. She really wants to go home and will not stay another night in the hospital. She has agreed to come back or call 911 if her breathing worsens with the decrease in steroids. -Continue home inhalers -cxr 10/30/20 showed COPD with no active pulmonary disease -d-dimer neg, PE felt to be less likely -abx given for COPD exacerbation while hospitalized. 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 [employer] <DARIUSZ MolinaC - Last Filed: 11/01/20 14:37> (2) Acute and chronic respiratory failure: Code(s): J96.20 - Acute and chronic respiratory failure, unspecified whether with hypoxia or hypercapnia <СВЕТЛАНА Molina-C - Last Filed: 11/01/20 14:37> Status: Acute <DARIUSZ MolinaC - Last Filed: 11/01/20 14:37> Assessment and Plan: resolved at this time, she is back to her home 3L of o2 -see above <СВЕТЛАНА Molina-C - Last Filed: 11/01/20 14:37> (3) HTN (hypertension) with goal to be determined: Code(s): I10 - Essential (primary) hypertension <СВЕТЛАНА Molina-C - Last Filed: 11/01/20 14:37> Status: Acute <СВЕТЛАНА Molina-C - Last Filed: 11/01/20 14:37> Assessment and Plan: Last bp 125/67 -Continue home norvasc and lasix <Reba A. Cadmus, PA-C - Last Filed: 11/01/20 14:37> (4) GERD (gastroesophageal reflux disease): Code(s): K21.9 - Gastro-esophageal reflux disease without esophagitis <Reba A. Cadmus, PA-C - Last Filed: 11/01/20 14:37> Status: Acute <Reba A. Cadmus, PA-C - Last Filed: 11/01/20 14:37> Assessment and Plan: Chronic, no acute symptoms -continue protonix <Reba A. Cadmus, PA-C - Last Filed: 11/01/20 14:37> (5) Chronic respiratory failure: Code(s): J96.10 - Chronic respiratory failure, unspecified whether with hypoxia or hypercapnia <Reba A. Cadmus, PA-C - Last Filed: 11/01/20 14:37> Status: Acute <Reba A. Cadmus, PA-C - Last Filed: 11/01/20 14:37> Assessment and Plan: as above <Reba A. Cadmus, PA-C - Last Filed: 11/01/20 14:37> (6) Sinus tachycardia: Code(s): R00.0 - Tachycardia, unspecified <Reba A. Cadmus, PA-C - Last Filed: 11/01/20 14:37> Status: Acute <Reba A. Cadmus, PA-C - Last Filed: 11/01/20 14:37> Assessment and Plan: Chronic component -Pt has no CP -d-dimer neg, PE less likely -likely due to lung disease <Reba A. Cadmus, PA-C - Last Filed: 11/01/20 14:37> DS: Summary Hospital Course Hospital Course: Pt is a 75 y/o female with a history of COPD, on chronic o2, and HTN who presented to the ED for worsening SOB, cough and wheezing for several weeks. When EMS arrived to her house she was satting 92% on her home 3 L. vitals in the ER were temperature 97.6?, pulse 108, respiratory rate 14, blood pressure 135/84, pulse ox 100 on room air. Initial white blood cell count slightly elevated 10.4, hemoglobin normal, hematocrit normal, platelets normal. BMP relatively normal. D-dimer normal. Chest x-ray revealed emphysema. ABG showed normal pH with an elevated CO2 compensated with an elevated bicarb. PO2 was 92.3. Patient was admitted to the hospitalist service and started on IV steroids, breathing t
== END 2020-11-01 14:03 | disposition home health service (06) | DRG 191 ==
LOC: ANHED 22:21 → ANH3MED 23:10
PROVIDERS: Hospitalist; Nurse Practitioner; Admitting Provider Internal Medicine; Emergency Provider General Practice; PCP Nurse Practitioner Family; Visit Provider Physician Assistant
DX: J44.1 Chronic obstructive pulmonary disease with (acute) exacerbation (principal); I50.32 Chronic diastolic (congestive) heart failure; K21.9 Gastro-esophageal reflux disease without esophagitis; R00.0 Tachycardia, unspecified; I11.0 Hypertensive heart disease with heart failure; D64.9 Anemia, unspecified; F41.9 Anxiety disorder, unspecified; F32.9 Major depressive disorder, single episode, unspecified; M81.0 Age-related osteoporosis without current pathological fracture; M41.9 Scoliosis, unspecified; I25.10 Atherosclerotic heart disease of native coronary artery without angina pectoris; M19.90 Unspecified osteoarthritis, unspecified site; Z99.81 Dependence on supplemental oxygen; Z85.828 Personal history of other malignant neoplasm of skin; I25.2 Old myocardial infarction; Z90.710 Acquired absence of both cervix and uterus; Z90.49 Acquired absence of other specified parts of digestive tract; Z90.722 Acquired absence of ovaries, bilateral; Z87.891 Personal history of nicotine dependence
CPT/HCPCS: 36415; 36600; 71045; 71046; 80048; 80053; 82375; 82805; 83050; 83605; 83735; 83880; 84100; 84484; 85025; 85027; 85380; 85610; 85730; 87040; 93005; 94640; 96365; 96366; 96374; 96375; 96376; 97161; 97165; 99285; A9270; G0378; J1956; J2920; J2930

== ENCOUNTER 2021-03-31 16:18 | Emergency (ER) | payer MEDICARE, MEDICAID, SELFPAY ==
[2021-03-31] VITALS (8 sets, daily range): BP systolic 129–141; BP diastolic 86–88; PULSE 99–116; RESP 15–24; TEMP 37; O2SAT 93–97
--- NOTE | ~2021-03-31 | XR_ITS ---
EXAMINATION: XR wrist LT min 3V DATE: 03/31/2021 16:47 INDICATION: Left wrist pain post recent fall TECHNIQUE: Posteroanterior, ulnar deviation, oblique, and lateral views of the left wrist were obtain ed. COMPARISON: none FINDINGS: Bone alignment is normal. There is subtle band of sclerosis extending across the scaphoid waist which could be related to a nondisplaced fracture. No other lesions suspicious for fracture identified. Mi ld bilateral articular osteoarthritis at the distal radioulnar, first carpometacarpal and first inter phalangeal joints. Soft tissue swelling about the dorsal aspect of the carpus. IMPRESSION: 1. Suspicion for possible nondisplaced fracture at the scaphoid waist. Could consider either CT or MR I for more definitive determination. Reviewed, dictated and finalized at location A. IMPRESSION: 1. Suspicion for possible nondisplaced fracture at the scaphoid waist. Could co nsider either CT or MRI for more definitive determination.
--- NOTE | ~2021-03-31 | XR_ITS ---
EXAMINATION: XR chest 1V portable DATE: 03/31/2021 16:47 INDICATION: Cough and 3 days of shortness of breath TECHNIQUE: frontal view of the chest was obtained. COMPARISON: Chest radiograph dated 10/30/2020 FINDINGS: Mild bibasilar opacities and favor atelectasis over pneumonia. No pulmonary edema, pleural effusion o r pneumothorax. The cardiomediastinal silhouette is normal. IMPRESSION: 1. Mild bibasilar opacities and favor atelectasis over pneumonia. Reviewed, dictated and finalized at location A.
--- NOTE | 2021-03-31 16:22 | ECG_ITS ---
Measurements Intervals [place] Rate: 114 P: 77 [place]: 107 QRS: 65 QRSD: 90 T: 72 QT: 335 QTc: 461 Interpretive Statements SINUS TACHYCARDIA WITH SHORT [place] INTERVAL POSSIBLE RIGHT ATRIAL ENLARGEMENT POSSIBLE LEFT ATRIAL ENLARGEMENT NONSPECIFIC ST & T-WAVE ABNORMALITY- INF/LAT LEADS BASELINE ARTIFACT- II, III, AVR, AVF, V2-V6 ABNORMAL ECG Electronically Signed On 03-31-2021 17:21:55 CDT by Demarcus Barnard D.O.
[2021-03-31 17:07] LABS: Basophils Percent Auto 0.4 % (0.2-1.2); Eosinophils Absolute Auto 0.1 K/mm3 (0-0.3); Eosinophils Percent Auto 0.8 % (0-4.4); Hematocrit 49.2 % (37.0-47.0); Hemoglobin 16.2 g/dL (12.0-15.0); Immature Granulocyte Absolute 0.04 K/mm3 (0.00-0.031); Immature Granulocyte Percent A 0.4 % (0-0.5); Lymphocytes Absolute Auto 1.94 K/mm3 (0.9-3.2); Lymphocytes Percent Auto 18.5 % (18.3-44.2); Mean Corpuscular HGB Conc 32.9 g/dl (32-36); Mean Corpuscular Hemoglobin 29.9 pg (26-34); Mean Corpuscular Volume 90.8 fl (80-100); Mean Platelet Volume 11.2 fl (7.4-10.4); Monocytes Absolute Auto 1.5 K/mm3 (0.1-0.6); Neutrophils Absolute Auto 6.9 K/mm3 (1.3-6.7); Neutrophils Percent Auto 65.9 % (45.5-73.1); Platelet Count Result 254 k/mm3 (150-375); Red Blood Count 5.42 M/mm3 (4.2-5.4); Red Cell Distribution Width 13.6 % (11.5-14.5); White Blood Count 10.5 K/mm3 (4.5-10.0)
[2021-03-31 17:16] LABS: Anion Gap 9 mmol/L (8-16); Blood Urea Nitrogen 20 mg/dL (7-17); Calcium 9.9 mg/dL (8.4-10.2); Carbon Dioxide 35 mmol/L (22-30); Chloride 96 mmol/L (98-107); Estimated CRCL calculation 36 ml/min; Estimated Glomerular Filt Rate 54; Glucose 118 mg/dL (65-110); Potassium 3.2 mmol/L (3.4-5.0); Sodium 140 mmol/L (137-145)
[2021-03-31] MEDS: ALBUTEROL SULFATE NEB 2.5 MG/0.5 ML INH 5 MG INHALATION ×2 (17:23→18:25)
[2021-03-31] MEDS: IPRATROPIUM BR 0.02% INH SOLN 0.5 MG/2.5 ML VIAL INHALATION (17:23)
[2021-03-31 17:52] LABS: NT Pro B Type Natriuretic Pept 145 pg/mL (5-100); Troponin I < 0.012 ng/mL (0.000-0.034)
--- NOTE | 2021-03-31 18:41 | ED.SOB ---
HPI - SOB/Dyspnea General Chief Complaint: Shortness of Breath/Dyspnea Stated Complaint: Cough,sob Time Seen by Provider: 03/31/21 16:23 Source: patient Mode of arrival: ambulatory Limitations: no limitations History of Present Illness HPI Narrative: 75-year-old female Here because of shortness of breath She says the best of her knowledge most of her breathing troubles have been from mild CHF however sounds like also she has been diagnosed with COPD as well although she is less sure about that She does use inhaled beta agonist and inhaled steroids and is on 3 L of oxygen at baseline at home She says for about three or 4 days she has had a cough with production of scant phlegm and been less tolerant of exercise than usual although she has not had to turn her oxygen up at all No fever She has been using her home meds but they help less than they usually do She did not have chest pain or increased swelling She always has two-pillow orthopnea and that has not changed She also gotten dizzy after a coughing spell once and put her left hand out to catch herself as she fell and has some soreness in her right wrist Related Data Home Medications Medication Instructions Recorded Confirmed Spiriva with HandiHaler 1 cap INHALATION DAILY 06/01/19 10/28/20 albuterol sulfate [ProAir HFA] 1 puff INHALATION Q4H PRN 06/01/19 10/28/20 budesonide-formoterol [Symbicort] 2 puff INHALATION BID 06/01/19 10/28/20 cetirizine 10 mg PO DAILY 06/01/19 10/28/20 clopidogrel 75 mg PO DAILY 06/01/19 10/28/20 ezetimibe 10 mg PO DAILY 06/01/19 10/28/20 montelukast [Singulair] 10 mg PO HS 06/01/19 10/28/20 rosuvastatin 10 mg PO DAILY 06/01/19 10/28/20 furosemide [Lasix] 40 mg PO DAILY 06/02/19 10/28/20 amlodipine 7.5 mg PO DAILY 06/21/20 10/28/20 Allergies Allergy/AdvReac Type Severity Reaction Status Date / Time Penicillins Allergy Unknown hives, Verified 03/31/21 16:23 tongue swelling sertraline AdvReac Mild Other Verified 03/31/21 16:23 Review of Systems Review of Systems: All systems reviewed & are unremarkable except as noted in HPI and below Constitutional: Constitutional: Reports no additional constitutional complaints, Denies chills, Reports fatigue, Denies fever(s), Denies headache(s) and Reports weakness Eyes: Eyes: Reports no additional eye complaints and Denies change in vision ENT: Denies headache(s) and Denies sore throat Cardiovascular: Cardiovascular: Denies chest pain and Denies dyspnea Respiratory: Respiratory: Reports chest congestion, Reports cough and Reports dyspnea Gastrointestinal: Gastrointestinal: Denies abdominal pain, Denies diarrhea and Denies vomiting Genitourinary: Genitourinary: Denies urinary frequency and Denies dysuria Musculoskeletal: Musculoskeletal: Denies deformity, Reports arthralgias, Reports joint swelling and Denies numbness Integumentary/Breasts: Skin/Breast: Denies rash and Denies wounds Neurologic: Denies headache(s), Denies focal weakness and Denies numbness Psychiatric: Psychiatric: Reports no additional psychiatric complaints Endocrine: Endocrine: Reports no additional endocrine complaints Hematologic/Lymphatic: Hematologic/Lymphatic: Reports no additional hematologic/lymphatic complaints Allergic/Immunologic: Allergic/Immunologic: Reports no additional allergic/immunologic complaints PMFSH Past Medical History Medical History Anemia Anxiety Arthritis Asthma Bronchitis Depression Hemorrhoids History of heart attack Kidney stones Osteoporosis Pneumonia Scoliosis Skin cancer Uterine fibroid UTI (urinary tract infection) Surgical History Surgical History H/O bilateral oophorectomy H/O: hysterectomy Hx of appendectomy Hx of LASIK Hx of tonsillectomy Family History Family History Mother Diabetes mellitus
== END 2021-03-31 19:30 | disposition home or self-care (01) ==
PROVIDERS: Emergency Provider Emergency Medicine; PCP Nurse Practitioner Family
DX: J44.9 Chronic obstructive pulmonary disease, unspecified (principal); S63.502A Unspecified sprain of left wrist, initial encounter; I50.9 Heart failure, unspecified; Z99.81 Dependence on supplemental oxygen; Z87.891 Personal history of nicotine dependence; W19.XXXA Unspecified fall, initial encounter
CPT/HCPCS: 36415; 71045; 73110; 80048; 83880; 84484; 85025; 93005; 94640; 96374; 99284; J1100

== ENCOUNTER 2021-09-24 09:30 | Inpatient (IN) | payer MEDICARE, MEDICAID, SELFPAY ==
[2021-09-24] VITALS (18 sets, daily range): BP systolic 133–160; BP diastolic 62–100; PULSE 88–113; RESP 15–27; TEMP 36.3–37.8; O2SAT 93–100; BMI 27.4
--- NOTE | ~2021-09-24 | XR_ITS ---
EXAMINATION: XR chest 1V portable DATE: 09/26/2021 10:38 INDICATION: Leukocytosis. COPD. TECHNIQUE: frontal view of the chest was obtained. COMPARISON: Chest radiograph dated 09/24/[address] dated 06/02/19 FINDINGS: Increased lucency with some architectural distortion in the upper lung zones consistent with emphysem a better appreciated on prior CT The lungs remain clear with no focal airspace opacities, pulmonary e terrence, pleural effusion or pneumothorax. The cardiomediastinal silhouette is normal. Mild thoracic dex trocurvature. Left pectoral implantable fabrication lead. IMPRESSION: 1. Emphysema. Reviewed, dictated and finalized at location B. IMPRESSION: 1. Emphysema.
--- NOTE | ~2021-09-24 | XR_ITS ---
EXAMINATION: XR chest 1V portable DATE: 09/24/2021 10:07 INDICATION: Shortness of breath. TECHNIQUE: A single frontal view of the chest was obtained. COMPARISON: Chest single view 03/31/2021, chest CT 06/02/2019 FINDINGS: There are lucencies in the lungs, consistent with emphysema. No pleural effusion or pneumot horax. The heart size is normal. An implant overlies left chest. IMPRESSION: 1. Emphysema. Reviewed, dictated and finalized at location A. IMPRESSION: 1. Emphysema.
--- NOTE | 2021-09-24 09:44 | ECG_ITS ---
Measurements Intervals [place] Rate: 106 P: 76 NE: 138 QRS: 67 QRSD: 85 T: 54 QT: 346 QTc: 461 Interpretive Statements SINUS TACHYCARDIA BIATRIAL ENLARGEMENT ANTEROSEPTAL MYOCARDIAL INFARCTION , PROBABLY OLD Electronically Signed On 09-24-2021 14:32:03 CDT by Chan López M.D.
--- NOTE | 2021-09-24 09:45 | ED.SOB ---
HPI - SOB/Dyspnea General Chief Complaint: Shortness of Breath/Dyspnea Stated Complaint: SOB Time Seen by Provider: 09/24/21 09:32 Source: patient and EMS Mode of arrival: EMS Limitations: no limitations History of Present Illness HPI Narrative: 76-year-old female with a longstanding history of oxygen dependent COPD presents via EMS secondary progressive worsening of her symptoms. She states she can progressively worse with more cough congestion shortness of breath the last 3 to 4 days. This morning was so bad that despite using her medications at home she felt she could not breathe. She normally wears oxygen at home at 3 L. On EMS arrival her O2 saturation on 3 L noted to be 88 to 89%. They increased her oxygen up to give her a nebulizer treatment prior to the emergency room. She has vaccinated both for influenza as well as fully vaccinated for Covid including a booster shot. Last time she was admitted to the hospital was approximately 2 to 3 months ago. Longstanding history of tobacco smoking smoking up to 3 packs/day for about 55 years and quit smoking about 7 years ago. Related Data Home Medications Medication Instructions Recorded Confirmed Spiriva with HandiHaler 1 cap INHALATION DAILY 06/01/19 10/28/20 albuterol sulfate [ProAir HFA] 1 puff INHALATION Q4H PRN 06/01/19 10/28/20 budesonide-formoterol [Symbicort] 2 puff INHALATION BID 06/01/19 10/28/20 cetirizine 10 mg PO DAILY 06/01/19 10/28/20 clopidogrel 75 mg PO DAILY 06/01/19 10/28/20 ezetimibe 10 mg PO DAILY 06/01/19 10/28/20 montelukast [Singulair] 10 mg PO HS 06/01/19 10/28/20 rosuvastatin 10 mg PO DAILY 06/01/19 10/28/20 furosemide [Lasix] 40 mg PO DAILY 06/02/19 10/28/20 amlodipine 7.5 mg PO DAILY 06/21/20 10/28/20 Allergies Allergy/AdvReac Type Severity Reaction Status Date / Time Penicillins Allergy Unknown hives, Verified 03/31/21 16:23 tongue swelling sertraline AdvReac Mild Other Verified 03/31/21 16:23 Review of Systems Review of Systems: CONSTITUTIONAL: Denies fever, chills, or sweats. EYES: Denies visual changes, redness, or discharge. ENT: Denies rhinorrhea, congestion, sore throat, or otalgia. CARDIOVASCULAR: Denies chest pain, palpitations, or edema. RESPIRATORY: Extremely short of breath with a cough GASTROINTESTINAL: Denies abdominal pain, nausea, vomiting, or diarrhea. GENITOURINARY: Denies dysuria or hematuria. SKIN: Denies rash or itching. MUSCULOSKELETAL: Denies back pain, joint pain, or myalgia. NEUROLOGIC: Denies headache, numbness, or weakness. PSYCHIATRIC: Denies anxiety or depression. [facility] Past Medical History Medical History Anemia Anxiety Arthritis Asthma Bronchitis Depression Hemorrhoids History of heart attack Kidney stones Osteoporosis Pneumonia Scoliosis Skin cancer Uterine fibroid UTI (urinary tract infection) Surgical History Surgical History H/O bilateral oophorectomy H/O: hysterectomy Hx of appendectomy Hx of LASIK Hx of tonsillectomy Family History Family History Mother Diabetes mellitus Son CAD (coronary artery disease) Hypertension Social History Social History Smoking packs per day: 3 Smoking cigarettes per day: 60.0 Years smoked: 55 Smoking pack-years: 165.00 Smoking status: Former smoker Tobacco type: cigarettes Second hand tobacco smoke exposure: Yes Alcohol intake: current Drinks per week: 2 Substance use: never Gender identity (if verbalized by the patient): Female Sexual Orientation (if Verbalized by the Patient): Straight or Heterosexual Spiritual care concerns: No Agree to blood products: Yes Exam Narrative: APPEARANCE: Well appearing, no pain or distress, well-nourished. Head normocephalic and atraumatic. EYES: PERRLA/EOMI,
[2021-09-24] MEDS: ALBUTEROL SULFATE NEB 2.5 MG/0.5 ML INH 5 MG INHALATION (09:51)
[2021-09-24] MEDS: IPRATROPIUM BR 0.02% INH SOLN 0.5 MG/2.5 ML VIAL INHALATION (09:51)
[2021-09-24 10:10] LABS: Basophils Absolute Auto 0.1 K/mm3 (0.0-0.1); Basophils Percent Auto 0.7 % (0.2-1.2); Eosinophils Absolute Auto 0.9 K/mm3 (0-0.3); Eosinophils Percent Auto 8.7 % (0-4.4); Hematocrit 48.7 % (37.0-47.0); Immature Granulocyte Absolute 0.03 K/mm3 (0.00-0.031); Immature Granulocyte Percent A 0.3 % (0-0.5); Lymphocytes Absolute Auto 2.49 K/mm3 (0.9-3.2); Lymphocytes Percent Auto 25.1 % (18.3-44.2); Mean Corpuscular HGB Conc 30.8 g/dl (32-36); Mean Corpuscular Hemoglobin 29.5 pg (26-34); Mean Corpuscular Volume 95.9 fl (80-100); Mean Platelet Volume 11.9 fl (7.4-10.4); Monocytes Absolute Auto 1.2 K/mm3 (0.1-0.6); Monocytes Percent Auto 11.6 % (2.6-8.5); Neutrophils Absolute Auto 5.3 K/mm3 (1.3-6.7); Neutrophils Percent Auto 53.6 % (45.5-73.1); Platelet Count Result 234 k/mm3 (150-375); Red Blood Count 5.08 M/mm3 (4.2-5.4); Red Cell Distribution Width 14.3 % (11.5-14.5); White Blood Count 9.9 K/mm3 (4.5-10.0)
[2021-09-24] MEDS: methylPREDNISolone SOD SUCC 125 MG VIAL IV PUSH (10:15)
[2021-09-24 10:57] LABS: Alanine Aminotransferase 20 U/L (4-35); Albumin Level 4.4 g/dL (3.5-5.1); Alkaline Phosphatase 55 U/L (38-126); Anion Gap 6 mmol/L (8-16); Aspartate Amino Transferase 34 U/L (14-36); Bilirubin,Total 0.6 mg/dL (0.2-1.3); Blood Urea Nitrogen 13 mg/dL (7-17); Calcium 8.9 mg/dL (8.4-10.2); Carbon Dioxide 30 mmol/L (22-30); Chloride 107 mmol/L (98-107); Estimated CRCL calculation 65 ml/min; Estimated Glomerular Filt Rate > 60; Glucose 107 mg/dL (65-110); Potassium 4.1 mmol/L (3.4-5.0); Sodium 143 mmol/L (137-145)
[2021-09-24] MEDS: ALBUTEROL SULFATE NEB 2.5 MG/0.5 ML INH 10 MG INHALATION (11:06)
--- NOTE | 2021-09-24 12:25 | PC.NURSE ---
Report to IMU RN at this time.
--- NOTE | 2021-09-24 12:56 | ADMGEN ---
This patient, Roxana Child, was admitted to IMU Room 209-01. Patient/family oriented to hospital policies and general routines including ID bracelet, bed and alarms, visiting hours, pain management, procedures, bathroom and other care routines, personal items, smoking policy, room service/diet, and visiting hours. Information on how to activate the Rapid Response Team has been discussed. Patient/Family are encouraged to report perceived risks to care and to ask questions if they do not understand what they are told or what they should do.
--- NOTE | 2021-09-24 13:30 | PM.IMHP ---
H&P: HPI History of Present Illness Date/Time: 09/24/21 13:30 Chief Complaint: Shortness of breath. Narrative: This is a very pleasant 76-year-old female with chronic respiratory failure on home oxygen, chronic obstructive pulmonary disease, congestive heart failure, and coronary artery disease who presented to the emergency department for evaluation of shortness of breath. Within the last 1 to 2 months she was seen by her equity research analyst and was told to hold the hand-held inhalers and use only her scheduled nebulizers. Unfortunately her breathing seems to be worse and she endorses worsening shortness of breath over last several weeks though it has been much worse the past 3 to 4 days. In fact he has been using her ProAir inhaler as well as Symbicort as rescue drugs which did seem to help for a period of time. This morning she could not get any relief from he inhalers or nebulizers and I really thought I was going to . Additionally she has had an increase in cough productive of greenish-yellow phlegm as well as a decrease in appetite and mild chest tightness though that is associated more so with her coughing jags. She denies fever, chills, sweats, orthopnea, paroxysmal nocturnal dyspnea, edema, nausea, vomiting, and diarrhea. Review of Systems Review of Systems: Twelve systems were reviewed and are negative except for as per HPI. [facility] Past Medical History Medical History (Updated 09/24/21 @ 13:06 by Bushra Barrios PA-C) Anemia Anxiety Arthritis Asthma Cerebrovascular accident Chronic obstructive pulmonary disease Chronic respiratory failure with hypoxia, on home oxygen therapy Congestive heart failure Echocardiogram in September 2017 showed normal LV systolic function with an EF of 65% and impaired diastolic relaxation grade 1. Coronary artery disease Depression Hemorrhoids Hypertension Kidney stones Meningioma Osteoporosis Osteoporosis Scoliosis Skin cancer Uterine fibroid Surgical History Surgical History (Updated 09/24/21 @ 13:06 by Bushra Barrios PA-C) History of appendectomy History of cardiac catheterization Per patient report she had mild coronary artery disease, treated with medical management. History of cataract extraction History of laser assisted in situ keratomileusis History of tonsillectomy History of total hysterectomy with bilateral salpingo-oophorectomy (BSO) For benign uterine fibroids. Status post surgical removal of malignant neoplasm of skin Family History Family History Mother Diabetes mellitus Son CAD (coronary artery disease) Hypertension Social History Social History (Updated 09/24/21 @ 20:40 by Bushra Barrios PA-C) Social History: Power of Paste Maker: Shanti Montes, [id number]. Code status: Do not resuscitate. Smoking packs per day: 3 Smoking cigarettes per day: 60.0 Years smoked: 50 Smoking pack-years: 150.00 Smoking status: Former smoker Tobacco type: cigarettes Second hand tobacco smoke exposure: Yes Alcohol intake: current Drinks per week: 2 Substance use: never Living arrangements: alone Occupation/Education: retired Spiritual care concerns: No Agree to blood products: Yes Meds Home Medications and Allergies Home Medications Medication Instructions Recorded Confirmed Type Spiriva with HandiHaler 1 cap INHALATION DAILY 06/01/19 09/24/21 History albuterol sulfate [ProAir HFA] 1 puff INHALATION Q4H PRN 06/01/19 09/24/21 History budesonide-formoterol [Symbicort] 2 puff INHALATION BID 06/01/19 09/24/21 History cetirizine 10 mg PO DAILY 06/01/19 09/24/21 History clopidogrel 75 mg PO DAILY 06/01/19 09/24/21 History ezetimibe 10 mg PO DAILY 06/01/19 09/24/21 History montelukast [Singulair] 10 mg PO HS 06/01/19 09/24/21 History rosuvastatin 10 mg PO DAILY 06/01/19 09/24/21 History furosemide [Lasix] 40 mg PO DAILY 06/02/19 09/24/21 History amlodipine 7.5 mg PO DAILY
[2021-09-24] MEDS: ACETAMINOPHEN 325 MG TABLET 650 MG PO ×2 (13:58→23:54)
[2021-09-24] MEDS: ALBUTEROL SULFATE NEB 2.5 MG/0.5 ML INH INHALATION (21:30)
--- NOTE | 2021-09-24 21:39 | PC.NURSE ---
Patient having increased SOB and coughing. Called [facility] and received order for STAT albuterol treatment.
[2021-09-24] MEDS: guaiFENesin 12 HR 600 MG TABCR PO (21:59)
[2021-09-24] MEDS: MONTELUKAST SODIUM 10 MG TABLET PO (21:59)
[2021-09-24] MEDS: clonazePAM (*CRX) 0.5 MG TABLET 1 MG PO (21:59)
[2021-09-24] MEDS: methylPREDNISolone SOD SUCC 125 MG VIAL 60 MG IV PUSH (23:55)
[2021-09-25] VITALS (21 sets, daily range): BP systolic 116–152; BP diastolic 52–79; PULSE 89–117; RESP 16–22; TEMP 36.3–37.1; O2SAT 94–98
[2021-09-25] MEDS: IPRATROPIUM BR 0.02% INH SOLN 0.5 MG/2.5 ML VIAL INHALATION ×4 (01:49→19:32)
[2021-09-25] MEDS: ALBUTEROL SULFATE NEB 2.5 MG/0.5 ML INH 5 MG INHALATION ×4 (01:49→19:32)
[2021-09-25 04:47] LABS: Hematocrit 42.2 % (37.0-47.0); Hemoglobin 13.8 g/dL (12.0-15.0); Mean Corpuscular HGB Conc 32.7 g/dl (32-36); Mean Corpuscular Hemoglobin 29.7 pg (26-34); Mean Corpuscular Volume 90.8 fl (80-100); Mean Platelet Volume 12.1 fl (7.4-10.4); Platelet Count Result 225 k/mm3 (150-375); Red Blood Count 4.65 M/mm3 (4.2-5.4); Red Cell Distribution Width 14.3 % (11.5-14.5); White Blood Count 8.5 K/mm3 (4.5-10.0)
[2021-09-25 04:59] LABS: Anion Gap 6 mmol/L (8-16); Blood Urea Nitrogen 15 mg/dL (7-17); Calcium 8.6 mg/dL (8.4-10.2); Carbon Dioxide 28 mmol/L (22-30); Chloride 105 mmol/L (98-107); Estimated CRCL calculation 80 ml/min; Estimated Glomerular Filt Rate > 60; Glucose 148 mg/dL (65-110); Magnesium 2.1 mg/dL (1.6-2.3); Potassium 3.9 mmol/L (3.4-5.0); Sodium 139 mmol/L (137-145)
[2021-09-25] MEDS: methylPREDNISolone SOD SUCC 125 MG VIAL 60 MG IV PUSH (06:45)
[2021-09-25] MEDS: FLUTICASONE/SALMETEROL 115-21 MCG INHALER 1 PUFF 2 PUFF INHALATION ×2 (08:13→19:32)
[2021-09-25] MEDS: UMECLIDINIUM BROMIDE 62.5 MCG ELLIPTA 1 PUFF INHALATION (08:14)
[2021-09-25] MEDS: CLOPIDOGREL BISULFATE 75 MG TABLET PO (08:16)
[2021-09-25] MEDS: CELECOXIB 200 MG CAPSULE PO (08:16)
[2021-09-25] MEDS: EZETIMIBE 10 MG TABLET PO (08:16)
[2021-09-25] MEDS: amLODIPine BESYLATE 2.5 MG TABLET PO (08:16)
[2021-09-25] MEDS: FUROSEMIDE 40 MG TABLET PO (08:16)
[2021-09-25] MEDS: ROSUVASTATIN 10 MG TABLET PO (08:16)
[2021-09-25] MEDS: levoFLOXacin 500 MG TABLET PO (08:16)
[2021-09-25] MEDS: LORATADINE 10 MG TABLET PO (08:16)
[2021-09-25] MEDS: guaiFENesin 12 HR 600 MG TABCR PO ×3 (08:16→19:55)
[2021-09-25] MEDS: amLODIPine BESYLATE 5 MG TABLET PO (08:17)
[2021-09-25] MEDS: clonazePAM (*CRX) 0.5 MG TABLET 1 MG PO ×2 (10:52→20:51)
[2021-09-25] MEDS: predniSONE 40 MG, predniSONE 10 MG 50 MG PO (12:00)
--- NOTE | 2021-09-25 12:00 | PM.IMPN ---
Progress Note: A&P Assessment and Plan (1) COPD exacerbation: Code(s): J44.1 - Chronic obstructive pulmonary disease with (acute) exacerbation Status: Acute Assessment and Plan: Increased shortness of breath and wheezes Steroids have been started Reduced to 50mg PO Daily Started on antibiotics Continue home nebs Trend symptoms Mucinex and pep therapy ordered (2) Chronic respiratory failure with hypoxia, on home oxygen therapy: Code(s): J96.11 - Chronic respiratory failure with hypoxia; Z99.81 - Dependence on supplemental oxygen Status: Acute Assessment and Plan: She is back to her baseline oxygen requirement 3LNC Continue to trend SPO2 Titrate oxygen to meet demand (3) Hypertension: Code(s): I10 - Essential (primary) hypertension Status: Acute Assessment and Plan: Current BP is 152/60 Blood pressures were reviewed and they have been running a bit high this evening. Continue antihypertensives and monitor closely Trend BP Adjust therapy as indicated (4) Coronary artery disease: Code(s): I25.10 - Atherosclerotic heart disease of [place] coronary artery without angina pectoris Status: Acute Assessment and Plan: No acute issues; her chest pain today is related to her coughing jags Continue clopidogrel and statin. (5) Sinus tachycardia: Code(s): R00.0 - Tachycardia, unspecified Status: Acute Assessment and Plan: HR is 100-120s Reports a history of fast heart rate Not on anything for this at this time Start metoprolol 12.5mg PO BID Trend Heart rate adjust as indicated Time Spent With Patient Time with patient: Greater than 35 minutes Subjective Date/time seen: 09/25/21 12:00 Interval history: Date/Time: 09/24/21 13:30 Narrative: This is a very pleasant 76-year-old female with chronic respiratory failure on home oxygen, chronic obstructive pulmonary disease, congestive heart failure, and coronary artery disease who presented to the emergency department for evaluation of shortness of breath. Within the last 1 to 2 months she was seen by her health diagnostics teacher and was told to hold the hand-held inhalers and use only her scheduled nebulizers. Unfortunately her breathing seems to be worse and she endorses worsening shortness of breath over last several weeks though it has been much worse the past 3 to 4 days. In fact he has been using her ProAir inhaler as well as Symbicort as rescue drugs which did seem to help for a period of time. This morning she could not get any relief from he inhalers or nebulizers and I really thought I was going to . Additionally she has had an increase in cough productive of greenish-yellow phlegm as well as a decrease in appetite and mild chest tightness though that is associated more so with her coughing jags. She denies fever, chills, sweats, orthopnea, paroxysmal nocturnal dyspnea, edema, nausea, vomiting, and diarrhea. Date/Time: 09/25/21 12:00 Patient was sitting in bed trying to get changed. Patient seems to be a little bit on edge as she is answering the questions she is telling me about how IM irritating her by asking her so many questions. She did say that she has increased wheezes and increased shortness of breath however her sputum remains the same. She did state that she has coughed up some stuff but not enough to put in a cup. She said sometimes it is yellow and sometimes white. She denies any chest pain, shortness of breath, nausea, vomiting, diarrhea, constipation, weakness or fatigue. Patient did state that she does have history of fast heart rate however she does not take anything for that right now. Review of Systems Review of Systems: All systems reviewed & are unremarkable except as noted in HPI and below Exam Const: General: cooperative, no acute distress, well developed, alert, awake, acute distress mild and respiratory, in distr
[2021-09-25] MEDS: METOPROLOL TARTRATE 12.5 MG TABLET PO ×2 (17:16→19:54)
[2021-09-25] MEDS: MONTELUKAST SODIUM 10 MG TABLET PO (19:55)
[2021-09-25] MEDS: ACETAMINOPHEN 325 MG TABLET 650 MG PO (20:51)
--- NOTE | 2021-09-25 20:59 | ECHO_ITS ---
Patient Info Name: Roxana Child Age: 76 years : 1945 Gender: Female Ht: 60 in Wt: 140 lbs BSA: 1.66 m2 HR: 95 bpm BP: 135 / 52 mmHg Heart Rhythm: Sinus Rhythm Technical Quality: Fair Exam Date: 09/25/2021 9:54 AM Exam Location: [facility] Patient Status: Outpatient Admit Date: 09/24/2021 Staff Ordering Physician: Bushra Barrios PA-C Bottoming Room Inspector: Medina Fontenot RDCS Attending Provider: Kyle Delacruz M.A., MD Referring Physician: Denis PONCE; Exam Type: CA echo doppler color flow Study Info Indications - ABNORMAL EKG, SHORTNESS OF BREATH, HTN, COPD Complete two-dimensional, color flow and Doppler transthoracic echocardiogram is performed. Summary 1. Complete two-dimensional, color flow and Doppler transthoracic echocardiogram is performed. 2. Normal left ventricular size and thickness with good systolic function of all segments. Ejection fraction 60-65%. No segmental wall motion abnormalities. Grade 1 diastolic dysfunction is present. 3. No significant valve disease. 4. Sinus rhythm and mild sinus tachycardia. Left Ventricle Left ventricular chamber dimension is normal. Left ventricular systolic function is normal, estimated at 60-65%. There is no increased left ventricular wall thickness. Left ventricular septal wall motion is normal. The left ventricular diastolic function is grade I diastolic dysfunction. Right Ventricle Right ventricular chamber dimension is normal. Right ventricular systolic function is normal. Left Atria Left atrial chamber dimension is normal. Right Atria Right atrial chamber dimension is normal. Aortic Valve The aortic valve is trileaflet. There is no aortic valve sclerosis. There is no aortic valve stenosis. There is no aortic valve regurgitation. Pulmonic Valve The pulmonic valve is normal. There is no pulmonic valve stenosis. There is no pulmonic regurgitation. Mitral Valve The mitral valve has normal leaflets. There is no mitral valve stenosis. There is no mitral valve regurgitation. Tricuspid Valve The tricuspid valve leaflets are normal. There is no significant tricuspid valve stenosis. There is trace tricuspid valve regurgitation. Mild pulmonary hypertension, estimated pulmonary arterial systolic pressure is 37 mmHg. Pericardium/Pleural The pericardium appears normal. There is no pericardial effusion. Inferior Vena Cava Normal inferior vena cava with >50% collapse upon inspiration consistent with Empty right atrial pressure, 10 mmHg. Aorta The aortic root size at the sinus of Valsalva is normal. The prox ascending aorta size is normal. Left Ventricular Outflow Tract Name Value Normal LVOT 2D LVOT Diameter 2.0 cm LVOT Doppler LVOT Peak Gradient 10 mmHg LVOT Mean Gradient 4 mmHg LVOT VTI 25 cm LVOT VTI/AV VTI Ratio 1.0 LVOT Stroke Volume 84 ml LVOT CO 8.1 l/min LVOT CI 4
[2021-09-26] VITALS (16 sets, daily range): BP systolic 95–118; BP diastolic 49–71; PULSE 69–97; RESP 12–20; TEMP 36.3–36.8; O2SAT 90–99
[2021-09-26] MEDS: IPRATROPIUM BR 0.02% INH SOLN 0.5 MG/2.5 ML VIAL INHALATION ×4 (01:55→20:48)
[2021-09-26] MEDS: ALBUTEROL SULFATE NEB 2.5 MG/0.5 ML INH 5 MG INHALATION ×2 (01:55→09:08)
[2021-09-26 04:49] LABS: Basophils Percent Auto 0.1 % (0.2-1.2); Hematocrit 41.9 % (37.0-47.0); Hemoglobin 13.1 g/dL (12.0-15.0); Immature Granulocyte Absolute 0.13 K/mm3 (0.00-0.031); Immature Granulocyte Percent A 0.7 % (0-0.5); Lymphocytes Absolute Auto 1.98 K/mm3 (0.9-3.2); Lymphocytes Percent Auto 10.6 % (18.3-44.2); Mean Corpuscular HGB Conc 31.3 g/dl (32-36); Mean Corpuscular Hemoglobin 29.6 pg (26-34); Mean Corpuscular Volume 94.8 fl (80-100); Mean Platelet Volume 12.2 fl (7.4-10.4); Monocytes Percent Auto 10.5 % (2.6-8.5); Neutrophils Absolute Auto 14.6 K/mm3 (1.3-6.7); Neutrophils Percent Auto 78.1 % (45.5-73.1); Platelet Count Result 227 k/mm3 (150-375); Red Blood Count 4.42 M/mm3 (4.2-5.4); Red Cell Distribution Width 14.6 % (11.5-14.5); White Blood Count 18.6 K/mm3 (4.5-10.0)
[2021-09-26 05:08] LABS: Alanine Aminotransferase 16 U/L (4-35); Albumin Level 3.7 g/dL (3.5-5.1); Alkaline Phosphatase 39 U/L (38-126); Anion Gap 2 mmol/L (8-16); Aspartate Amino Transferase 27 U/L (14-36); Bilirubin,Total 0.5 mg/dL (0.2-1.3); Blood Urea Nitrogen 23 mg/dL (7-17); Calcium 8.5 mg/dL (8.4-10.2); Carbon Dioxide 32 mmol/L (22-30); Chloride 106 mmol/L (98-107); Estimated CRCL calculation 66 ml/min; Estimated Glomerular Filt Rate > 60; Glucose 117 mg/dL (65-110); Magnesium 2.4 mg/dL (1.6-2.3); Potassium 4.1 mmol/L (3.4-5.0); Sodium 140 mmol/L (137-145)
[2021-09-26] MEDS: levoFLOXacin 500 MG TABLET PO (08:29)
[2021-09-26] MEDS: EZETIMIBE 10 MG TABLET PO (08:29)
[2021-09-26] MEDS: predniSONE 40 MG, predniSONE 10 MG 50 MG PO (08:29)
[2021-09-26] MEDS: ROSUVASTATIN 10 MG TABLET PO (08:29)
[2021-09-26] MEDS: LORATADINE 10 MG TABLET PO (08:30)
[2021-09-26] MEDS: amLODIPine BESYLATE 5 MG TABLET PO (08:30)
[2021-09-26] MEDS: amLODIPine BESYLATE 2.5 MG TABLET PO (08:30)
[2021-09-26] MEDS: CLOPIDOGREL BISULFATE 75 MG TABLET PO (08:30)
[2021-09-26] MEDS: FUROSEMIDE 40 MG TABLET PO (08:30)
[2021-09-26] MEDS: CELECOXIB 200 MG CAPSULE PO (08:30)
[2021-09-26] MEDS: UMECLIDINIUM BROMIDE 62.5 MCG ELLIPTA 1 PUFF INHALATION (09:08)
[2021-09-26] MEDS: FLUTICASONE/SALMETEROL 115-21 MCG INHALER 1 PUFF 2 PUFF INHALATION ×2 (09:08→20:48)
[2021-09-26] MEDS: METOPROLOL TARTRATE 12.5 MG TABLET PO ×2 (09:14→20:55)
--- NOTE | 2021-09-26 09:45 | PM.IMPN ---
Progress Note: A&P Assessment and Plan (1) Leukocytosis: Code(s): D72.829 - Elevated white blood cell count, unspecified Status: Acute Assessment and Plan: WBC severely elevated at 18.6 from 8.5 Chest xray does not show infection Complaints of chills with weakness and dizziness Blood cultures and urine culture pending Trend labs Currently on Levaquin Could be secondary to steroid use (2) COPD exacerbation: Code(s): J44.1 - Chronic obstructive pulmonary disease with (acute) exacerbation Status: Acute Assessment and Plan: Increased shortness of breath and wheezes Steroids have been started Reduced to 50mg PO Daily Started on antibiotics Continue home nebs, changed albuterol to Xopenex Trend symptoms Mucinex and pep therapy ordered (3) Chronic respiratory failure with hypoxia, on home oxygen therapy: Code(s): J96.11 - Chronic respiratory failure with hypoxia; Z99.81 - Dependence on supplemental oxygen Status: Acute Assessment and Plan: She is back to her baseline oxygen requirement 3LNC Continue to trend SPO2 Titrate oxygen to meet demand Repeat chest xray shows clear lungs and emphysema (4) Hypertension: Code(s): I10 - Essential (primary) hypertension Status: Acute Assessment and Plan: Current BP is 108/49 Blood pressures were reviewed and they have been running a bit high this evening. Continue antihypertensives and monitor closely Trend BP Adjust therapy as indicated (5) Coronary artery disease: Code(s): I25.10 - Atherosclerotic heart disease of [place] coronary artery without angina pectoris Status: Acute Assessment and Plan: No acute issues; her chest pain today is related to her coughing jags Continue clopidogrel and statin. (6) Sinus tachycardia: Code(s): R00.0 - Tachycardia, unspecified Status: Acute Assessment and Plan: HR is 80-90 today Reports a history of fast heart rate Not on anything for this at this time Start metoprolol 12.5mg PO BID Trend Heart rate adjust as indicated Time Spent With Patient Time with patient: Greater than 35 minutes Subjective Date/time seen: 09/26/21 0945 Interval history: Date/Time: 09/24/21 13:30 Narrative: This is a very pleasant 76-year-old female with chronic respiratory failure on home oxygen, chronic obstructive pulmonary disease, congestive heart failure, and coronary artery disease who presented to the emergency department for evaluation of shortness of breath. Within the last 1 to 2 months she was seen by her patch washer and was told to hold the hand-held inhalers and use only her scheduled nebulizers. Unfortunately her breathing seems to be worse and she endorses worsening shortness of breath over last several weeks though it has been much worse the past 3 to 4 days. In fact he has been using her ProAir inhaler as well as Symbicort as rescue drugs which did seem to help for a period of time. This morning she could not get any relief from he inhalers or nebulizers and I really thought I was going to . Additionally she has had an increase in cough productive of greenish-yellow phlegm as well as a decrease in appetite and mild chest tightness though that is associated more so with her coughing jags. She denies fever, chills, sweats, orthopnea, paroxysmal nocturnal dyspnea, edema, nausea, vomiting, and diarrhea. Date/Time: 09/25/21 12:00 Patient was sitting in bed trying to get changed. Patient seems to be a little bit on edge as she is answering the questions she is telling me about how IM irritating her by asking her so many questions. She did say that she has increased wheezes and increased shortness of breath however her sputum remains the same. She did state that she has coughed up some stuff but not enough to put in a cup. She said sometimes it is yellow and sometimes white. S
--- NOTE | 2021-09-26 09:45 | P.PNIM_ITS ---
Progress Note: A&P Assessment and Plan (1) Leukocytosis: Code(s): D72.829 - Elevated white blood cell count, unspecified Status: Acute Assessment and Plan: * WBC severely elevated at 18.6 from 8.5 * Chest xray does not show infection * Complaints of chills with weakness and dizziness * Blood cultures and urine culture pending * Trend labs * Currently on Levaquin * Could be secondary to steroid use (2) COPD exacerbation: Code(s): J44.1 - Chronic obstructive pulmonary disease with (acute) exacerbation Status: Acute Assessment and Plan: * Increased shortness of breath and wheezes * Steroids have been started * Reduced to 50mg PO Daily * Started on antibiotics * Continue home nebs, changed albuterol to Xopenex * Trend symptoms * Mucinex and pep therapy ordered (3) Chronic respiratory failure with hypoxia, on home oxygen therapy: Code(s): J96.11 - Chronic respiratory failure with hypoxia; Z99.81 - Dependence on supplemental oxygen Status: Acute Assessment and Plan: * She is back to her baseline oxygen requirement * 3LNC * Continue to trend SPO2 * Titrate oxygen to meet demand * Repeat chest xray shows clear lungs and emphysema (4) Hypertension: Code(s): I10 - Essential (primary) hypertension Status: Acute Assessment and Plan: * Current BP is 108/49 * Blood pressures were reviewed and they have been running a bit high this evening. * Continue antihypertensives and monitor closely * Trend BP * Adjust therapy as indicated (5) Coronary artery disease: Code(s): I25.10 - Atherosclerotic heart disease of [place] coronary artery without angina pectoris Status: Acute Assessment and Plan: * No acute issues; her chest pain today is related to her coughing jags * Continue clopidogrel and statin. (6) Sinus tachycardia: Code(s): R00.0 - Tachycardia, unspecified Status: Acute Assessment and Plan: * HR is 80-90 today * Reports a history of fast heart rate * Not on anything for this at this time * Start metoprolol 12.5mg PO BID * Trend Heart rate adjust as indicated Time Spent With Patient Time with patient: Greater than 35 minutes Subjective Date/time seen: 09/26/21 0945 Interval history: Date/Time: 09/24/21 13:30 Narrative: This is a very pleasant 76-year-old female with chronic respiratory failure on home oxygen, chronic obstructive pulmonary disease, congestive heart failure, and coronary artery disease who presented to the emergency department for evaluation of shortness of breath. Within the last 1 to 2 months she was seen by her clinic physician director and was told to hold the hand-held inhalers and use only her scheduled nebulizers. Unfortunately her breathing seems to be worse and she endorses worsening shortness of breath over last several weeks though it has been much worse the past 3 to 4 days. In fact he has been using her ProAir inhaler as well as Symbicort as rescue drugs which did seem to help for a period of time. This morning she could not get any relief from he inhalers or nebulizers and I really thought I was going to . Additionally she has had an increase in cough productive of greenish-yellow phlegm as well as a decrease in appetite and mild chest tightness though that is associated more so with her coughing jags. She denies fever, chills, sweats, orthopnea, paroxysmal nocturnal dyspnea, edema, nausea, vomiting, and diarrhea. Date/Time: 09/25/21
--- NOTE | 2021-09-26 19:46 | PC.NURSE ---
This patient, Roxana Child, was transferred to [facility] Med/Surg Room 320 on 09/26/21 at 1946. Personal belongings sent with patient. Report given to HUBER Temple. Appropriate documentation sent with patient.
[2021-09-26] MEDS: guaiFENesin 12 HR 600 MG TABCR PO (20:54)
[2021-09-26] MEDS: MONTELUKAST SODIUM 10 MG TABLET PO (20:54)
[2021-09-26] MEDS: clonazePAM (*CRX) 0.5 MG TABLET 1 MG PO (23:44)
[2021-09-27] VITALS (17 sets, daily range): BP systolic 117–160; BP diastolic 59–98; PULSE 73–105; RESP 16–24; TEMP 35.6–36.6; O2SAT 92–100
[2021-09-27] MEDS: IPRATROPIUM BR 0.02% INH SOLN 0.5 MG/2.5 ML VIAL INHALATION ×4 (01:03→23:46)
--- NOTE | 2021-09-27 05:06 | ADMGEN ---
This patient, Roxana Child, was admitted to [facility] Surg Room 320-01. Patient/family oriented to hospital policies and general routines including ID bracelet, bed and alarms, visiting hours, pain management, procedures, bathroom and other care routines, personal items, smoking policy, room service/diet, and visiting hours. Information on how to activate the Rapid Response Team has been discussed. Patient/Family are encouraged to report perceived risks to care and to ask questions if they do not understand what they are told or what they should do.
--- NOTE | 2021-09-27 05:07 | PC.NURSE ---
0330 Pt states that ramos are coming from the oxygen meter in the wall, she ask if I smell smoke. Informed pt that I didn't see any ramos and I don't smell smoke. Another nurse assess the area also without any findings. I ask the charge nurse to assess the room . Pt took her belongings out of the room and stood in the hallway, pt began to c/o the staff laughing at her. Tried to assure pt that no one were laughing at her.
[2021-09-27 07:58] LABS: Basophils Percent Auto 0.1 % (0.2-1.2); Eosinophils Absolute Auto 0.1 K/mm3 (0-0.3); Eosinophils Percent Auto 0.6 % (0-4.4); Hematocrit 45.8 % (37.0-47.0); Hemoglobin 14.5 g/dL (12.0-15.0); Immature Granulocyte Absolute 0.04 K/mm3 (0.00-0.031); Immature Granulocyte Percent A 0.3 % (0-0.5); Lymphocytes Absolute Auto 4.02 K/mm3 (0.9-3.2); Lymphocytes Percent Auto 28.6 % (18.3-44.2); Mean Corpuscular HGB Conc 31.7 g/dl (32-36); Mean Corpuscular Hemoglobin 29.7 pg (26-34); Mean Corpuscular Volume 93.9 fl (80-100); Mean Platelet Volume 11.9 fl (7.4-10.4); Monocytes Absolute Auto 1.7 K/mm3 (0.1-0.6); Monocytes Percent Auto 12.1 % (2.6-8.5); Neutrophils Absolute Auto 8.2 K/mm3 (1.3-6.7); Neutrophils Percent Auto 58.3 % (45.5-73.1); Platelet Count Result 233 k/mm3 (150-375); Red Blood Count 4.88 M/mm3 (4.2-5.4); Red Cell Distribution Width 14.3 % (11.5-14.5); White Blood Count 14.1 K/mm3 (4.5-10.0)
[2021-09-27 08:11] LABS: Alanine Aminotransferase 17 U/L (4-35); Albumin Level 3.8 g/dL (3.5-5.1); Alkaline Phosphatase 50 U/L (38-126); Anion Gap 4 mmol/L (8-16); Aspartate Amino Transferase 25 U/L (14-36); Bilirubin,Total 0.6 mg/dL (0.2-1.3); Blood Urea Nitrogen 20 mg/dL (7-17); Calcium 8.3 mg/dL (8.4-10.2); Carbon Dioxide 32 mmol/L (22-30); Chloride 106 mmol/L (98-107); Estimated CRCL calculation 56 ml/min; Estimated Glomerular Filt Rate > 60; Glucose 91 mg/dL (65-110); Magnesium 2.4 mg/dL (1.6-2.3); Potassium 3.5 mmol/L (3.4-5.0); Sodium 142 mmol/L (137-145)
[2021-09-27] MEDS: levoFLOXacin 500 MG TABLET PO (08:50)
[2021-09-27] MEDS: predniSONE 40 MG, predniSONE 10 MG 50 MG PO (08:50)
[2021-09-27] MEDS: guaiFENesin 12 HR 600 MG TABCR PO ×2 (08:51→20:00)
[2021-09-27] MEDS: amLODIPine BESYLATE 2.5 MG TABLET PO (08:51)
[2021-09-27] MEDS: ROSUVASTATIN 10 MG TABLET PO (08:51)
[2021-09-27] MEDS: METOPROLOL TARTRATE 12.5 MG TABLET PO ×2 (08:51→20:00)
[2021-09-27] MEDS: amLODIPine BESYLATE 5 MG TABLET PO (08:51)
[2021-09-27] MEDS: LORATADINE 10 MG TABLET PO (08:52)
[2021-09-27] MEDS: CLOPIDOGREL BISULFATE 75 MG TABLET PO (08:52)
[2021-09-27] MEDS: EZETIMIBE 10 MG TABLET PO (08:52)
[2021-09-27] MEDS: CELECOXIB 200 MG CAPSULE PO (08:52)
[2021-09-27] MEDS: FUROSEMIDE 40 MG TABLET PO (08:52)
--- NOTE | 2021-09-27 10:45 | P.PNIM_ITS ---
Progress Note: A&P Assessment and Plan (1) Leukocytosis: Code(s): D72.829 - Elevated white blood cell count, unspecified Status: Acute Assessment and Plan: * WBC trending down and is currently 5.3 * Chest xray does not show infection * Complaints of chills with weakness and dizziness * Blood cultures and urine culture pending * Trend labs * Currently on Levaquin * Could be secondary to steroid use (2) COPD exacerbation: Code(s): J44.1 - Chronic obstructive pulmonary disease with (acute) exacerbation Status: Acute Assessment and Plan: * Increased shortness of breath and wheezes * Steroids have been starte, Reduced to 50mg PO Daily * Started on antibiotics * Continue home nebs, changed albuterol to Xopenex * BNP pending, Dimer pending * Get CTA if elevated dimer * Trend symptoms * Mucinex and pep therapy ordered * Consider pulm consult (3) Chronic respiratory failure with hypoxia, on home oxygen therapy: Code(s): J96.11 - Chronic respiratory failure with hypoxia; Z99.81 - Dependence on supplemental oxygen Status: Acute Assessment and Plan: * She is back to her baseline oxygen requirement * 3LNC * Continue to trend SPO2 * Titrate oxygen to meet demand * Repeat chest xray shows clear lungs and emphysema * Get ABG (4) Hypertension: Code(s): I10 - Essential (primary) hypertension Status: Acute Assessment and Plan: * Current BP is 118/98 * Blood pressures were reviewed and they have been running a bit high this evening. * Continue antihypertensives and monitor closely * Trend BP * Adjust therapy as indicated (5) Coronary artery disease: Code(s): I25.10 - Atherosclerotic heart disease of [place] coronary artery without angina pectoris Status: Acute Assessment and Plan: * No acute issues; her chest pain today is related to her coughing jags * Continue clopidogrel and statin. (6) Sinus tachycardia: Code(s): R00.0 - Tachycardia, unspecified Status: Acute Assessment and Plan: * HR is 80-90 today * Reports a history of fast heart rate * Not on anything for this at this time * Start metoprolol 12.5mg PO BID * Trend Heart rate adjust as indicated Subjective Date/time seen: 09/27/21 16:02 Interval history: Date/Time: 09/24/21 13:30 Narrative: This is a very pleasant 76-year-old female with chronic respiratory failure on home oxygen, chronic obstructive pulmonary disease, congestive heart failure, and coronary artery disease who presented to the emergency department for evaluation of shortness of breath. Within the last 1 to 2 months she was seen by her title officer and was told to hold the hand-held inhalers and use only her scheduled nebulizers. Unfortunately her breathing seems to be worse and she endorses worsening shortness of breath over last several weeks though it has been much worse the past 3 to 4 days. In fact he has been using her ProAir inhaler as well as Symbicort as rescue drugs which did seem to help for a period of time. This morning she could not get any relief from he inhalers or nebulizers and I really thought I was going to . Additionally she has had an increase in cough productive of greenish-yellow phlegm as well as a decrease in appetite and mild chest tightness though that is associated more so with her coughing jags. She denies fever, chills, sweats, orthopnea, paroxysmal nocturnal dysp
--- NOTE | 2021-09-27 10:45 | PM.IMPN ---
Progress Note: A&P Assessment and Plan (1) Leukocytosis: Code(s): D72.829 - Elevated white blood cell count, unspecified Status: Acute Assessment and Plan: WBC trending down and is currently 5.3 Chest xray does not show infection Complaints of chills with weakness and dizziness Blood cultures and urine culture pending Trend labs Currently on Levaquin Could be secondary to steroid use (2) COPD exacerbation: Code(s): J44.1 - Chronic obstructive pulmonary disease with (acute) exacerbation Status: Acute Assessment and Plan: Increased shortness of breath and wheezes Steroids have been starte, Reduced to 50mg PO Daily Started on antibiotics Continue home nebs, changed albuterol to Xopenex BNP pending, Dimer pending Get CTA if elevated dimer Trend symptoms Mucinex and pep therapy ordered Consider pulm consult (3) Chronic respiratory failure with hypoxia, on home oxygen therapy: Code(s): J96.11 - Chronic respiratory failure with hypoxia; Z99.81 - Dependence on supplemental oxygen Status: Acute Assessment and Plan: She is back to her baseline oxygen requirement 3LNC Continue to trend SPO2 Titrate oxygen to meet demand Repeat chest xray shows clear lungs and emphysema Get ABG (4) Hypertension: Code(s): I10 - Essential (primary) hypertension Status: Acute Assessment and Plan: Current BP is 118/98 Blood pressures were reviewed and they have been running a bit high this evening. Continue antihypertensives and monitor closely Trend BP Adjust therapy as indicated (5) Coronary artery disease: Code(s): I25.10 - Atherosclerotic heart disease of [place] coronary artery without angina pectoris Status: Acute Assessment and Plan: No acute issues; her chest pain today is related to her coughing jags Continue clopidogrel and statin. (6) Sinus tachycardia: Code(s): R00.0 - Tachycardia, unspecified Status: Acute Assessment and Plan: HR is 80-90 today Reports a history of fast heart rate Not on anything for this at this time Start metoprolol 12.5mg PO BID Trend Heart rate adjust as indicated Subjective Date/time seen: 09/27/21 16:02 Interval history: Date/Time: 09/24/21 13:30 Narrative: This is a very pleasant 76-year-old female with chronic respiratory failure on home oxygen, chronic obstructive pulmonary disease, congestive heart failure, and coronary artery disease who presented to the emergency department for evaluation of shortness of breath. Within the last 1 to 2 months she was seen by her drywall applicator and was told to hold the hand-held inhalers and use only her scheduled nebulizers. Unfortunately her breathing seems to be worse and she endorses worsening shortness of breath over last several weeks though it has been much worse the past 3 to 4 days. In fact he has been using her ProAir inhaler as well as Symbicort as rescue drugs which did seem to help for a period of time. This morning she could not get any relief from he inhalers or nebulizers and I really thought I was going to . Additionally she has had an increase in cough productive of greenish-yellow phlegm as well as a decrease in appetite and mild chest tightness though that is associated more so with her coughing jags. She denies fever, chills, sweats, orthopnea, paroxysmal nocturnal dyspnea, edema, nausea, vomiting, and diarrhea. Date/Time: 09/25/21 12:00 Patient was sitting in bed trying to get changed. Patient seems to be a little bit on edge as she is answering the questions she is telling me about how IM irritating her by asking her so many questions. She did say that she has increased wheezes and increased shortness of breath however her sputum remains the same. She did state that she has coughed up some stuff but not enough to put in a cup. She said sometimes
--- NOTE | 2021-09-27 10:47 | PCRCNOTE ---
Window of time for administration has passed. See next scheduled administration.
--- NOTE | 2021-09-27 15:11 | PCCCNOTE ---
On 09/27/21, the student, [Lashonda Rivas], provided care and completed [facility] documentation on this patient. I have reviewed the student's documentation and agree with the findings.
[2021-09-27 16:00] LABS: D Dimer 0.34 ug/mL (<0.48)
[2021-09-27 16:01] LABS: Alveolar/Arterial O2 Gradient 97.4 mmHg; Base Excess ABG 7.8 mEq/l (+/-2.0); Carboxyhemoglobin 0.3 % THb (0-2.0); Fractional Inspired Oxygen 36 %; HCO3 ABG 33.7 mEq/l (22.0-26.0); Methemoglobin ABG 0.4 %THb (0-1.5); Oxygen Content ABG 20.7 %vol (16.0-22.0); Oxygen Saturation ABG 97.6 % (95.0-100.0); Oxyhemoglobin 96.6 % THb (90.0-100.0); PCO2 ABG 51.6 mmHg (35.0-45.0); PO2 ABG 99.4 mmHg (80.0-100.0); PO2 FiO2 Ratio Arterial Blood 2.76 %; Reduced Hemoglobin 2.7 %THb (0-5.0); Total Hemoglobin 15.2 g/dL (12.0-18.0); pH ABG 7.433 (7.350-7.450)
[2021-09-27 16:02] LABS: Modified Allen's Test Pass; Site Drawn LEFT BRACHIAL
[2021-09-27 16:03] LABS: Device NASAL CANNULA
[2021-09-27 16:08] LABS: NT Pro B Type Natriuretic Pept 447 pg/mL (5-100)
--- NOTE | 2021-09-27 18:09 | PCRCNOTE ---
Window of time for administration has passed. See next scheduled administration.
[2021-09-27] MEDS: MONTELUKAST SODIUM 10 MG TABLET PO (20:00)
[2021-09-27] MEDS: ACETAMINOPHEN 325 MG TABLET 650 MG PO (20:01)
[2021-09-28] VITALS (7 sets, daily range): BP systolic 153; BP diastolic 82; PULSE 77–105; RESP 18–22; TEMP 36.1; O2SAT 95–100
[2021-09-28] MEDS: IPRATROPIUM BR 0.02% INH SOLN 0.5 MG/2.5 ML VIAL INHALATION ×2 (04:55→08:50)
[2021-09-28 05:56] LABS: Basophils Percent Auto 0.1 % (0.2-1.2); Eosinophils Absolute Auto 0.1 K/mm3 (0-0.3); Eosinophils Percent Auto 0.6 % (0-4.4); Hematocrit 47.6 % (37.0-47.0); Hemoglobin 14.8 g/dL (12.0-15.0); Immature Granulocyte Absolute 0.04 K/mm3 (0.00-0.031); Immature Granulocyte Percent A 0.3 % (0-0.5); Lymphocytes Percent Auto 32.4 % (18.3-44.2); Mean Corpuscular HGB Conc 31.1 g/dl (32-36); Mean Corpuscular Hemoglobin 29.5 pg (26-34); Mean Corpuscular Volume 94.8 fl (80-100); Mean Platelet Volume 11.5 fl (7.4-10.4); Monocytes Absolute Auto 1.5 K/mm3 (0.1-0.6); Monocytes Percent Auto 12.1 % (2.6-8.5); Neutrophils Absolute Auto 6.9 K/mm3 (1.3-6.7); Neutrophils Percent Auto 54.5 % (45.5-73.1); Platelet Count Result 264 k/mm3 (150-375); Red Blood Count 5.02 M/mm3 (4.2-5.4); Red Cell Distribution Width 14.3 % (11.5-14.5); White Blood Count 12.7 K/mm3 (4.5-10.0)
[2021-09-28 06:15] LABS: Alanine Aminotransferase 23 U/L (4-35); Alkaline Phosphatase 53 U/L (38-126); Aspartate Amino Transferase 30 U/L (14-36); Bilirubin,Total 0.6 mg/dL (0.2-1.3); Blood Urea Nitrogen 20 mg/dL (7-17); Calcium 8.4 mg/dL (8.4-10.2); Carbon Dioxide > 40 mmol/L (22-30); Chloride 100 mmol/L (98-107); Estimated CRCL calculation 49 ml/min; Estimated Glomerular Filt Rate > 60; Glucose 93 mg/dL (65-110); Magnesium 2.3 mg/dL (1.6-2.3); Potassium 3.4 mmol/L (3.4-5.0); Sodium 142 mmol/L (137-145)
[2021-09-28] MEDS: FUROSEMIDE INJ 40 MG/4 ML VIAL IV PUSH (06:54)
[2021-09-28] MEDS: predniSONE 40 MG, predniSONE 10 MG 50 MG PO (08:21)
[2021-09-28] MEDS: METOPROLOL TARTRATE 12.5 MG TABLET PO (08:22)
[2021-09-28] MEDS: amLODIPine BESYLATE 2.5 MG TABLET PO (08:22)
[2021-09-28] MEDS: amLODIPine BESYLATE 5 MG TABLET PO (08:22)
[2021-09-28] MEDS: LORATADINE 10 MG TABLET PO (08:22)
[2021-09-28] MEDS: ROSUVASTATIN 10 MG TABLET PO (08:22)
[2021-09-28] MEDS: FUROSEMIDE 40 MG TABLET PO (08:22)
[2021-09-28] MEDS: EZETIMIBE 10 MG TABLET PO (08:22)
[2021-09-28] MEDS: CELECOXIB 200 MG CAPSULE PO (08:23)
[2021-09-28] MEDS: guaiFENesin 12 HR 600 MG TABCR PO (08:23)
[2021-09-28] MEDS: CLOPIDOGREL BISULFATE 75 MG TABLET PO (08:23)
[2021-09-28] MEDS: levoFLOXacin 500 MG TABLET PO (08:23)
[2021-09-28] MEDS: DORNASE ALFA INH SOLN 1 MG/ML 2.5 ML AMP 2.5 MG INHALATION (08:49)
--- NOTE | 2021-09-28 09:45 | P.DS_ITS ---
DS: Admitting Diagnosis Discharge Date 09/28/21 0945 Admitting Diagnosis COPD exacerbation DS: Discharge Diagnosis Discharge Diagnosis (1) Leukocytosis: Code(s): D72.829 - Elevated white blood cell count, unspecified Status: Acute Assessment and Plan: * WBC trending down and is currently 12.7 * Chest xray does not show infection * Complaints of chills with weakness and dizziness * Blood cultures and urine culture pending * Trend labs * Currently on Levaquin for a total of 7 days * Could be secondary to steroid use (2) COPD exacerbation: Code(s): J44.1 - Chronic obstructive pulmonary disease with (acute) exacerbation Status: Acute Assessment and Plan: * Increased shortness of breath and wheezes * Steroids have been starte, Reduced to 50mg PO Daily * Started on antibiotics * Continue home nebs, changed albuterol to Xopenex * BNP pending, Dimer pending * Get CTA if elevated dimer * Trend symptoms * Mucinex and pep therapy ordered * Consider pulm consult (3) Chronic respiratory failure with hypoxia, on home oxygen therapy: Code(s): J96.11 - Chronic respiratory failure with hypoxia; Z99.81 - Dependence on supplemental oxygen Status: Acute Assessment and Plan: * She is back to her baseline oxygen requirement * 3LNC * Continue to trend SPO2 * Titrate oxygen to meet demand * Repeat chest xray shows clear lungs and emphysema * Get ABG (4) Hypertension: Code(s): I10 - Essential (primary) hypertension Status: Acute Assessment and Plan: * Current BP is 153/82 * Blood pressures were reviewed and they have been running a bit high this evening. * Continue antihypertensives and monitor closely * Trend BP * Adjust therapy as indicated (5) Coronary artery disease: Code(s): I25.10 - Atherosclerotic heart disease of [place] coronary artery without angina pectoris Status: Acute Assessment and Plan: * No acute issues; her chest pain today is related to her coughing jags * Continue clopidogrel and statin. (6) Sinus tachycardia: Code(s): R00.0 - Tachycardia, unspecified Status: Acute Assessment and Plan: * HR is 80-90 today * Reports a history of fast heart rate * Not on anything for this at this time * Start metoprolol 12.5mg PO BID * Trend Heart rate adjust as indicated DS: Summary Hospital Course Hospital Course: Patient is a 76-year-old female with a past medical history of COPD, CVA, CHF, CAD who presented to the ED with complaints shortness of breath. Patient had seen her manufacturing process engineer recently and her medications were changed. Upon arrival chest x-ray showed severe emphysema. Patient was started on IV methylprednisone, IV Levaquin, and nebulizer treatments. Oxygenation was initially titrated up and has been able to been titrated down to her home settings. Patient was noted to have episodes of tachycardia. Albuterol has been changed to Xopenex and patient was started on metoprolol for further control. Patient's heart rate has been stable and in the 80s. Patient feels better today and denies any chest pain, shortness of breath, nausea, vomiting, diarrhea, constipation, weakness or fatigue. Patient continues on her same oxygen regimen at this time. Laboratory results have corrected and her stable at this time vital signs are also stable. Patient was concerned about her home O2 oxygen tanks. Hesham rothman
--- NOTE | 2021-09-28 09:45 | PM.DS ---
DS: Admitting Diagnosis Discharge Date 09/28/21 0945 Admitting Diagnosis COPD exacerbation DS: Discharge Diagnosis Discharge Diagnosis (1) Leukocytosis: Code(s): D72.829 - Elevated white blood cell count, unspecified Status: Acute Assessment and Plan: WBC trending down and is currently 12.7 Chest xray does not show infection Complaints of chills with weakness and dizziness Blood cultures and urine culture pending Trend labs Currently on Levaquin for a total of 7 days Could be secondary to steroid use (2) COPD exacerbation: Code(s): J44.1 - Chronic obstructive pulmonary disease with (acute) exacerbation Status: Acute Assessment and Plan: Increased shortness of breath and wheezes Steroids have been starte, Reduced to 50mg PO Daily Started on antibiotics Continue home nebs, changed albuterol to Xopenex BNP pending, Dimer pending Get CTA if elevated dimer Trend symptoms Mucinex and pep therapy ordered Consider pulm consult (3) Chronic respiratory failure with hypoxia, on home oxygen therapy: Code(s): J96.11 - Chronic respiratory failure with hypoxia; Z99.81 - Dependence on supplemental oxygen Status: Acute Assessment and Plan: She is back to her baseline oxygen requirement 3LNC Continue to trend SPO2 Titrate oxygen to meet demand Repeat chest xray shows clear lungs and emphysema Get ABG (4) Hypertension: Code(s): I10 - Essential (primary) hypertension Status: Acute Assessment and Plan: Current BP is 153/82 Blood pressures were reviewed and they have been running a bit high this evening. Continue antihypertensives and monitor closely Trend BP Adjust therapy as indicated (5) Coronary artery disease: Code(s): I25.10 - Atherosclerotic heart disease of [place] coronary artery without angina pectoris Status: Acute Assessment and Plan: No acute issues; her chest pain today is related to her coughing jags Continue clopidogrel and statin. (6) Sinus tachycardia: Code(s): R00.0 - Tachycardia, unspecified Status: Acute Assessment and Plan: HR is 80-90 today Reports a history of fast heart rate Not on anything for this at this time Start metoprolol 12.5mg PO BID Trend Heart rate adjust as indicated DS: Summary Hospital Course Hospital Course: Patient is a 76-year-old female with a past medical history of COPD, CVA, CHF, CAD who presented to the ED with complaints shortness of breath. Patient had seen her radiology asst recently and her medications were changed. Upon arrival chest x-ray showed severe emphysema. Patient was started on IV methylprednisone, IV Levaquin, and nebulizer treatments. Oxygenation was initially titrated up and has been able to been titrated down to her home settings. Patient was noted to have episodes of tachycardia. Albuterol has been changed to Xopenex and patient was started on metoprolol for further control. Patient's heart rate has been stable and in the 80s. Patient feels better today and denies any chest pain, shortness of breath, nausea, vomiting, diarrhea, constipation, weakness or fatigue. Patient continues on her same oxygen regimen at this time. Laboratory results have corrected and her stable at this time vital signs are also stable. Patient was concerned about her home O2 oxygen tanks. Mandi has been contacted and will be in contact with her to get her supply replenished. Patient is very ready to go admit me at the door today. She denies any complaints with a cough or secretions today. She was able to eat and dress herself. She does have a home caregiver 4 times a week. Patient states she has plenty of medications at home and denies any needs at this time. Patient is stable for discharge will be going home with her caregiver. Status at Discharge Functional status at di
--- NOTE | 2021-09-28 10:49 | PC.NURSE ---
Home O2 evaluation was canceled per Gilberto Tian TEENAGE BABYSITTER orders. Patient has been maintaining current home setting while in the hospital. Patient was very impatient to leave and it was decided the home O2 eval. was not necessary.
--- NOTE | 2021-09-28 11:31 | PC.NURSE ---
Attempted to educate patient on importance of wearing oxygen at home. Patient refused to wear oxygen to transport home regardless of education. Patient states she goes hours at home without her oxygen and was not concerned. Discussed with Jose Eduardo BURGER and he said that this is normal for the patient and to continue with discharge and let her go home without oxygen per her request.
== END 2021-09-28 11:30 | disposition home or self-care (01) | DRG 191 ==
LOC: ANHED 12:10 → ANHIMU 13:25 → ANH3MEDSUR 09-26 21:03
PROVIDERS: Physician Assistant; Admitting Provider Internal Medicine; Emergency Provider Emergency Medicine; PCP Nurse Practitioner Family; Visit Provider Nurse Practitioner
DX: J43.9 Emphysema, unspecified (principal); J96.11 Chronic respiratory failure with hypoxia; I50.32 Chronic diastolic (congestive) heart failure; I25.10 Atherosclerotic heart disease of native coronary artery without angina pectoris; I11.0 Hypertensive heart disease with heart failure; D64.9 Anemia, unspecified; F41.9 Anxiety disorder, unspecified; M19.90 Unspecified osteoarthritis, unspecified site; M81.0 Age-related osteoporosis without current pathological fracture; M41.9 Scoliosis, unspecified; D72.828 Other elevated white blood cell count; T38.0X5A Adverse effect of glucocorticoids and synthetic analogues, initial encounter; R00.0 Tachycardia, unspecified; Z99.81 Dependence on supplemental oxygen; Z86.73 Personal history of transient ischemic attack (TIA), and cerebral infarction without residual deficits; Z87.442 Personal history of urinary calculi; I25.2 Old myocardial infarction; Z85.828 Personal history of other malignant neoplasm of skin; Z90.49 Acquired absence of other specified parts of digestive tract; Z90.710 Acquired absence of both cervix and uterus; Z90.722 Acquired absence of ovaries, bilateral; Z87.891 Personal history of nicotine dependence
CPT/HCPCS: 36415; 36600; 71045; 80048; 80053; 82375; 82805; 83050; 83735; 83880; 85025; 85027; 85380; 87040; 93005; 93306; 94640; 94667; 94668; 96374; 96376; 99285; A9270; G0378; J1940; J2930; J7512

== ENCOUNTER 2022-06-22 12:18 | Emergency (ER) | payer MEDICARE, MEDICAID, SELFPAY ==
[2022-06-22] VITALS (8 sets, daily range): BP systolic 115; BP diastolic 58; PULSE 86–110; RESP 16–22; O2SAT 92–100
[2022-06-22] MEDS: SODIUM CHLORIDE 0.9% IV 1,000 ML 999 ML IV CONT (12:55)
[2022-06-22] MEDS: ONDANSETRON INJ 4 MG/2 ML VIAL IV PUSH (12:56)
--- NOTE | 2022-06-22 12:58 | PC.NURSE ---
Used EMS bag instead of pulling a new NS bag.
--- NOTE | 2022-06-22 13:09 | ED.GENADULT ---
HPI - General Adult General Chief complaint: Shortness of Breath/Dyspnea Stated complaint: SOB Time Seen by Provider: 06/22/22 12:25 History of Present Illness HPI narrative: Patient is a 77-year-old female who presents the ER with diarrhea and fatigue. Reports she has had diarrhea as well as nausea and vomiting for the last 4 days. She acquired this with her caregiver who had symptoms. She reports abdominal cramping but no localized pain. Denies fevers or chills. Patient wears 3 L chronically for COPD. Denies any possible shortness of breath which did not resolve quickly with Related Data Home Medications Medication Instructions Recorded Confirmed albuterol sulfate 90 mcg/actuation 1 puff inhalation Q4H PRN 06/01/19 09/24/21 aerosol inhaler (ProAir HFA) Shortness Of Breath Or Wheezing budesonide-formoterol HFA 160 2 puff inhalation BID 06/01/19 09/24/21 mcg-4.5 mcg/actuation aerosol inhaler (Symbicort) cetirizine 10 mg tablet 10 mg PO DAILY 06/01/19 09/24/21 clopidogrel 75 mg tablet 75 mg PO DAILY 06/01/19 09/24/21 ezetimibe 10 mg tablet 10 mg PO DAILY 06/01/19 09/24/21 montelukast 10 mg tablet 10 mg PO HS 06/01/19 09/24/21 (Singulair) rosuvastatin 10 mg tablet 10 mg PO DAILY 06/01/19 09/24/21 tiotropium bromide 18 mcg capsule 1 cap inhalation DAILY 06/01/19 09/24/21 with inhalation device (Spiriva with HandiHaler) furosemide 40 mg tablet (Lasix) 40 mg PO DAILY 06/02/19 09/24/21 amlodipine 2.5 mg tablet 7.5 mg PO DAILY 06/21/20 09/24/21 celecoxib 200 mg capsule 200 mg PO DAILY 09/24/21 09/24/21 clonazepam 1 mg tablet 1 mg PO TID PRN Anxiety 09/24/21 09/24/21 Allergies Allergy/AdvReac Type Severity Reaction Status Date / Time Penicillins Allergy Unknown hives, Verified 06/22/22 12:55 tongue swelling sertraline AdvReac Mild Other Verified 06/22/22 12:55 Review of Systems Review of Systems: All systems reviewed & are unremarkable except as noted in HPI and below Constitutional: Constitutional: Denies chills, Reports fatigue and Denies fever(s) ENT: Denies nasal congestion and Denies sore throat Cardiovascular: Cardiovascular: Denies chest pain, Denies rapid heart rate and Denies radiating jaw, neck or arm pain Respiratory: Respiratory: Denies cough and Denies dyspnea Gastrointestinal: Gastrointestinal: Denies abdominal pain, Reports diarrhea, Reports nausea and Reports vomiting Genitourinary: Genitourinary: Denies nocturia and Denies dysuria [facility] Past Medical History Medical History (Updated 06/22/22 @ 15:47 by Tommie Coleman MD) Anemia Anxiety Arthritis Asthma Cerebrovascular accident Chronic obstructive pulmonary disease Chronic respiratory failure with hypoxia, on home oxygen therapy Congestive heart failure Echocardiogram in September 2017 showed normal LV systolic function with an EF of 65% and impaired diastolic relaxation grade 1. Coronary artery disease Depression Hemorrhoids Hypertension Kidney stones Meningioma Osteoporosis Osteoporosis Scoliosis Skin cancer Uterine fibroid Surgical History Surgical History (Updated 09/24/21 @ 13:06 by Bushra Barrios PA-C) History of appendectomy History of cardiac catheterization Per patient report she had mild coronary artery disease, treated with medical management. History of cataract extraction History of laser assisted in situ keratomileusis History of tonsillectomy History of total hysterectomy with bilateral salpingo-oophorectomy (BSO) For benign uterine fibroids. Status post surgical removal of malignant neoplasm of skin Family History Family History Mother Diabetes mellitus Son CAD (coronary artery disease) Hypertension Social History Social History (Updated 09/24/21 @ 20:40 by Bushra Barrios PA-C) Social History: Power of Automation Qa Analyst: Shanti Montes, [id number]. Code status: Do not resuscitate. Smoking packs per day: 3 Smok
[2022-06-22 13:36] LABS: Basophils Percent Auto 0.3 % (0.2-1.2); Hematocrit 42.3 % (37.0-47.0); Hemoglobin 13.4 g/dL (12.0-15.0); Immature Granulocyte Absolute 0.01 K/mm3 (0.00-0.031); Immature Granulocyte Percent A 0.2 % (0-0.5); Lymphocytes Absolute Auto 0.75 K/mm3 (0.9-3.2); Lymphocytes Percent Auto 12.3 % (18.3-44.2); Mean Corpuscular HGB Conc 31.7 g/dl (32-36); Mean Corpuscular Hemoglobin 29.6 pg (26-34); Mean Corpuscular Volume 93.6 fl (80-100); Mean Platelet Volume 11.7 fl (7.4-10.4); Monocytes Absolute Auto 0.9 K/mm3 (0.1-0.6); Monocytes Percent Auto 14.5 % (2.6-8.5); Neutrophils Absolute Auto 4.4 K/mm3 (1.3-6.7); Neutrophils Percent Auto 72.7 % (45.5-73.1); Platelet Count Result 223 k/mm3 (150-375); Red Blood Count 4.52 M/mm3 (4.2-5.4); Red Cell Distribution Width 12.9 % (11.5-14.5); White Blood Count 6.1 K/mm3 (4.5-10.0)
[2022-06-22 13:47] LABS: Alanine Aminotransferase 28 U/L (6-35); Albumin Level 3.8 g/dL (3.5-5.1); Alkaline Phosphatase 49 U/L (38-126); Anion Gap 5 mmol/L (8-16); Aspartate Amino Transferase 44 U/L (14-36); Bilirubin,Total 0.3 mg/dL (0.2-1.3); Blood Urea Nitrogen 13 mg/dL (7-17); Calcium 8.3 mg/dL (8.4-10.2); Carbon Dioxide 33 mmol/L (22-30); Chloride 103 mmol/L (98-107); Estimated Glomerular Filt Rate > 60; Glucose 113 mg/dL (65-110); Lipase 163 U/L (23-300); Potassium 3.3 mmol/L (3.4-5.0); Sodium 141 mmol/L (137-145)
[2022-06-22 13:50] LABS: Prothrombin Time 13.1 Seconds (11.1-14.7)
[2022-06-22 13:51] LABS: Partial Thromboplastin Time 30.2 SECONDS (22.3-36.8)
== END 2022-06-22 16:09 | disposition home or self-care (01) ==
PROVIDERS: Emergency Provider Emergency Medicine; PCP Nurse Practitioner Family
DX: K52.9 Noninfective gastroenteritis and colitis, unspecified (principal); F17.210 Nicotine dependence, cigarettes, uncomplicated; D64.9 Anemia, unspecified; F41.9 Anxiety disorder, unspecified; M19.90 Unspecified osteoarthritis, unspecified site; J45.909 Unspecified asthma, uncomplicated; F32.9 Major depressive disorder, single episode, unspecified; I25.10 Atherosclerotic heart disease of native coronary artery without angina pectoris; I10 Essential (primary) hypertension
CPT/HCPCS: 36415; 80053; 83690; 85025; 85610; 85730; 96361; 96374; 99284; J2405; J7030

== ENCOUNTER 2022-07-01 14:21 | Emergency (ER) | payer MEDICARE, MEDICAID, SELFPAY ==
--- NOTE | ~2022-07-01 | XR_ITS ---
EXAMINATION: XR chest 2V Exam Date/Time: 07/01/2022 15:20 CIRCULAR STUFFER HISTORY: prod cough PAST SMOKER Comparison: 09/26/2021. RESULT: Lines, tubes, and devices: Loop recorder. Lungs and pleura: Mild senescent change, otherwise clear. Cardiomediastinal silhouette: Stable. Other: No acute osseous or upper abdominal finding. IMPRESSION: No acute cardiopulmonary process. Reviewed, dictated and finalized at location K. ULAR STUFFER
[2022-07-01 14:35] VITALS: BP 124/76; PULSE 64; RESP 24; TEMP 36.4; O2SAT 100
--- NOTE | 2022-07-01 15:02 | ECG_ITS ---
Measurements Intervals [place] Rate: 76 P: 77 [place]: 129 QRS: 67 QRSD: 81 T: 63 QT: 399 QTc: 450 Interpretive Statements SINUS RHYTHM FREQUENT VENTRICULAR PREMATURE COMPLEXES POSSIBLE LEFT ATRIAL ENLARGEMENT LOW QRS VOLTAGE IN PRECORDIAL LEADS CANNOT RULE OUT SEPTAL INFARCT, AGE INDETERMINATE BASELINE ARTIFACT- I, II, III, AVR, AVL, AVF, V4-V6 ABNORMAL ECG COMPARED TO ECG 09/24/2021 09:41:18 SINUS RHYTHM NOW PRESENT Electronically Signed On 07-02-2022 7:57:28 HOSE INSPECTOR AND PATCHER by Demarcus Barnard D.O.
--- NOTE | 2022-07-01 15:14 | ED.SOB ---
HPI - SOB/Dyspnea General Chief Complaint: Shortness of Breath/Dyspnea Stated Complaint: SOB/ Headache/ Abdominal Pain Time Seen by Provider: 07/01/22 14:50 Source: patient Mode of arrival: ambulatory Limitations: no limitations History of Present Illness HPI Narrative: Roxana is a 77-year-old female patient presenting to the clinic today with complaints of shortness of breath, headache, and lower abdominal pain. She reports she has had this go known for approximately 1 week. States that she is becoming more short of breath. Reports that the phlegm is clear and yellow. She does have history of COPD. She is on 3 L of O2 at this time. She wears home O2 at all times. SpO2 is 100% on room air in the clinic today. Reports that her right shoulder began hurting today and does not know of any injury. Started hurting after she woke up this morning Related Data Home Medications Medication Instructions Recorded Confirmed albuterol sulfate 90 mcg/actuation 1 puff inhalation Q4H PRN 06/01/19 09/24/21 aerosol inhaler (ProAir HFA) Shortness Of Breath Or Wheezing budesonide-formoterol HFA 160 2 puff inhalation BID 06/01/19 09/24/21 mcg-4.5 mcg/actuation aerosol inhaler (Symbicort) cetirizine 10 mg tablet 10 mg PO DAILY 06/01/19 09/24/21 clopidogrel 75 mg tablet 75 mg PO DAILY 06/01/19 09/24/21 ezetimibe 10 mg tablet 10 mg PO DAILY 06/01/19 09/24/21 montelukast 10 mg tablet 10 mg PO HS 06/01/19 09/24/21 (Singulair) rosuvastatin 10 mg tablet 10 mg PO DAILY 06/01/19 09/24/21 tiotropium bromide 18 mcg capsule 1 cap inhalation DAILY 06/01/19 09/24/21 with inhalation device (Spiriva with HandiHaler) furosemide 40 mg tablet (Lasix) 40 mg PO DAILY 06/02/19 09/24/21 amlodipine 2.5 mg tablet 7.5 mg PO DAILY 06/21/20 09/24/21 celecoxib 200 mg capsule 200 mg PO DAILY 09/24/21 09/24/21 clonazepam 1 mg tablet 1 mg PO TID PRN Anxiety 09/24/21 09/24/21 Allergies Allergy/AdvReac Type Severity Reaction Status Date / Time Penicillins Allergy Unknown hives, Verified 07/01/22 15:11 tongue swelling sertraline AdvReac Mild Other Verified 07/01/22 15:11 Review of Systems Review of Systems: Pertinent positives per HPI. Patient denies any fever, chills, rash, headache, visual changes, dizziness, cough, runny nose, sore throat, chest pain, palpitations, nausea, vomiting, diarrhea, constipation, abdominal pain, or any urinary issues. [facility] Past Medical History Medical History (Updated 07/01/22 @ 15:46 by Sudhir Colon, GROUND WATER CONTRACTOR) Anemia Anxiety Arthritis Asthma Cerebrovascular accident Chronic obstructive pulmonary disease Chronic respiratory failure with hypoxia, on home oxygen therapy Congestive heart failure Echocardiogram in September 2017 showed normal LV systolic function with an EF of 65% and impaired diastolic relaxation grade 1. Coronary artery disease Depression Hemorrhoids Hypertension Kidney stones Meningioma Osteoporosis Osteoporosis Scoliosis Skin cancer Uterine fibroid Surgical History Surgical History (Updated 09/24/21 @ 13:06 by Bushra Barrios PA-C) History of appendectomy History of cardiac catheterization Per patient report she had mild coronary artery disease, treated with medical management. History of cataract extraction History of laser assisted in situ keratomileusis History of tonsillectomy History of total hysterectomy with bilateral salpingo-oophorectomy (BSO) For benign uterine fibroids. 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 Code status: Do not resuscitate. Smoking packs per day: 3 Smoking cigarettes per day: 60.0 Years smoked: 50
[2022-07-01] MEDS: ALBUTEROL SULFATE NEB 2.5 MG/3 ML INH INHALATION (15:37)
[2022-07-01] MEDS: IPRATROPIUM BR 0.02% INH SOLN 0.5 MG/2.5 ML VIAL INHALATION (15:37)
== END 2022-07-01 16:01 | disposition home or self-care (01) ==
PROVIDERS: Emergency Provider Nurse Practitioner Family; PCP Nurse Practitioner Family
DX: I49.3 Ventricular premature depolarization (principal); J44.1 Chronic obstructive pulmonary disease with (acute) exacerbation; R10.30 Lower abdominal pain, unspecified; M25.511 Pain in right shoulder; Z20.822 Contact with and (suspected) exposure to COVID-19; Z87.891 Personal history of nicotine dependence; F41.9 Anxiety disorder, unspecified; M19.90 Unspecified osteoarthritis, unspecified site; J45.909 Unspecified asthma, uncomplicated; Z86.73 Personal history of transient ischemic attack (TIA), and cerebral infarction without residual deficits; J44.9 Chronic obstructive pulmonary disease, unspecified; I11.0 Hypertensive heart disease with heart failure; I50.9 Heart failure, unspecified; M81.0 Age-related osteoporosis without current pathological fracture; M41.9 Scoliosis, unspecified; Z85.828 Personal history of other malignant neoplasm of skin
CPT/HCPCS: 71046; 81003; 87426; 87804; 93005; 94640; 99213; C9803; G0463

== ENCOUNTER 2022-08-28 16:35 | Emergency (ER) | payer MEDICARE, MEDICAID, SELFPAY ==
[2022-08-28] VITALS (8 sets, daily range): BP systolic 117–124; BP diastolic 54–79; PULSE 79–98; RESP 16–26; TEMP 36.4; O2SAT 94–100
--- NOTE | ~2022-08-28 | CT_ITS ---
EXAMINATION: CT brain wo con DATE: 08/28/2022 18:20 INDICATION: dizziness, falls, JONES, hx meningioma . TECHNIQUE: Computed tomography (CT) of the head was performed without intravenous contrast. The mA wa s adjusted according to patient size. Iterative reconstruction technique was employed. The dose-lengt h product was 605.33 mGy-cm. COMPARISON: 06/21/2020. FINDINGS: No acute intracranial hemorrhage or extra-axial fluid collection. No hydrocephalus, mass, or herniation. No acute ischemic infarct. Unremarkable dural venous sinus attenuation. No acute osseous abnormality. The aerated spaces are clear. Mild atrophy and moderate chronic white matter change. Atherosclerotic intracranial calcification. Sm all old lacunar infarct in the right caudate nucleus. Stable calcified meningioma along the posterior falx. Bilateral lens replacements. IMPRESSION: No acute intracranial process. Reviewed, dictated and finalized at location K. GE SCREEN OPERATOR
--- NOTE | ~2022-08-28 | XR_ITS ---
EXAMINATION: XR chest 2V Exam Date/Time: 08/28/2022 16:57 OPERATIONS DEVELOPER HISTORY: SOB, DIZZINESS, WEAKNESS SINCE HEART SURGERY 8 DAYS AGO Comparison: 07/01/2022. RESULT: Lines, tubes, and devices: Loop recorder. Lungs and pleura: Senescent changes, otherwise clear. Cardiomediastinal silhouette: Stable. Other: No acute osseous or upper abdominal finding. IMPRESSION: No acute cardiopulmonary process. Reviewed, dictated and finalized at location K. ATIONS DEVELOPER
--- NOTE | ~2022-08-28 | CT_ITS ---
EXAMINATION: CTA brain carotid DATE: 08/28/2022 21:55 INDICATION: severe dizziness and gait impariment TECHNIQUE: Computed tomographic angiography (CTA) of the head and neck was performed with 100 mL Omni paque-350 intravenous contrast. Automated exposure control and iterative reconstruction technique wer e employed. The The dose-length product was 1152.24 mGy-cm. Maximum intensity projection and volume r endered 3D-reconstructions were created by the technologist on a separate workstation. COMPARISON: CT brain, same date. FINDINGS: CTA HEAD: No large vessel occlusion, aneurysm, high flow vascular malformation, nidus or extravasation. Calcifi ed plaque in the cavernous carotids, without significant stenosis. Patent cerebral veins. Symmetric p arenchymal enhancement. CTA NECK: Aortic arch and proximal great vessels: Atherosclerotic calcifications at the visualized aortic arch and proximal great vessels. Right common carotid, carotid bifurcation, and internal carotid artery: Calcified plaque at the bifur cation.There is 0% stenosis of the proximal right internal carotid artery relative to normal distal a rtery lumen diameter (NASCET criteria). Left common carotid, carotid bifurcation, and internal carotid artery: Calcified plaque at the bifurc ation.There is 0% stenosis of the proximal left internal carotid artery relative to normal distal art ellen lumen diameter (NASCET criteria). Vertebral arteries: No significant plaque or stenosis. Other findings: Biapical pleural scarring and emphysematous change. Degenerative changes in the cervi ty spine. IMPRESSION: No large vessel occlusion. No significant carotid or vertebral stenosis. Reviewed, dictated and finalized at location K. PPER OPERATOR
--- NOTE | ~2022-08-28 | US_ITS ---
Right lower extremity arterial duplex exam CLINICAL HISTORY: Pain and bruising status post CABG, evaluate for pseudoaneurysm TECHNIQUE: Sonographic imaging of the right lower extremity arterial structures of performed, includi ng color flow imaging and Doppler spectral analysis. FINDINGS: Right common femoral artery, right profunda femoral artery, right SFA, right popliteal chase ry, right posterior tibial and anterior tibial arteries, and right dorsalis pedis artery are all bernal nt. No evidence for pseudoaneurysm. At the level of the right common femoral artery, there is a 3.7 x 1.4 x 3.6 cm mildly irregular fluid collection with some low-level internal echoes, but no evidence of color flow. This could reflect he matoma given history of recent catheterization. IMPRESSION: No pseudoaneurysm or arterial occlusion. 3.7 x 1.4 x 3.6 cm presumed evolving hematoma at the level of the right common femoral artery. Correl ate for superinfection. Reviewed, dictated and finalized at [facility]. R INSTALLATION FOREMAN IMPRESSION: No pseudoaneurysm or arterial occlusion. 3.7 x 1.4 x 3.6 cm presumed evolving hematoma at the level of the right common femoral artery. Correlate for superinfection.
--- NOTE | 2022-08-28 16:46 | ECG_ITS ---
Measurements Intervals [place] Rate: 93 P: 81 [place]: 120 QRS: 69 QRSD: 94 T: 69 QT: 355 QTc: 443 Interpretive Statements SINUS RHYTHM CANNOT RULE OUT SEPTAL INFARCT, AGE INDETERMINATE BASELINE ARTIFACT- I, II, III, AVR, AVL, V2, V5 ABNORMAL ECG COMPARED TO ECG 07/01/2022 15:02:06 NO SIGNIFICANT CHANGES Electronically Signed On 08-28-2022 18:56:14 POWDER CUTTING OPERATOR by Demarcus Barnard D.O.
[2022-08-28 17:04] LABS: Basophils Absolute Auto 0.1 K/mm3 (0.0-0.1); Basophils Percent Auto 0.8 % (0.2-1.2); Eosinophils Absolute Auto 0.6 K/mm3 (0-0.3); Eosinophils Percent Auto 5.7 % (0-4.4); Hematocrit 38.8 % (37.0-47.0); Hemoglobin 12.2 g/dL (12.0-15.0); Immature Granulocyte Absolute 0.03 K/mm3 (0.00-0.031); Immature Granulocyte Percent A 0.3 % (0-0.5); Lymphocytes Absolute Auto 2.64 K/mm3 (0.9-3.2); Lymphocytes Percent Auto 25.1 % (18.3-44.2); Mean Corpuscular HGB Conc 31.4 g/dl (32-36); Mean Corpuscular Hemoglobin 29.3 pg (26-34); Mean Platelet Volume 11.7 fl (7.4-10.4); Monocytes Absolute Auto 1.2 K/mm3 (0.1-0.6); Monocytes Percent Auto 11.5 % (2.6-8.5); Neutrophils Percent Auto 56.6 % (45.5-73.1); Platelet Count Result 376 k/mm3 (150-375); Red Blood Count 4.17 M/mm3 (4.2-5.4); Red Cell Distribution Width 13.4 % (11.5-14.5); White Blood Count 10.5 K/mm3 (4.5-10.0)
[2022-08-28 17:17] LABS: Alanine Aminotransferase 20 U/L (6-35); Albumin Level 4.6 g/dL (3.5-5.1); Alkaline Phosphatase 58 U/L (38-126); Anion Gap 4 mmol/L (8-16); Aspartate Amino Transferase 29 U/L (14-36); Bilirubin,Total 0.5 mg/dL (0.2-1.3); Blood Urea Nitrogen 20 mg/dL (7-17); Calcium 9.5 mg/dL (8.4-10.2); Carbon Dioxide 34 mmol/L (22-30); Chloride 100 mmol/L (98-107); Estimated CRCL calculation 48 ml/min; Estimated Glomerular Filt Rate > 60; Glucose 110 mg/dL (65-110); Sodium 138 mmol/L (137-145)
--- NOTE | 2022-08-28 18:13 | ED.GENADULT ---
HPI - General Adult General Chief complaint: Shortness of Breath/Dyspnea <Nikia Kaplan PA-C - Last Filed: 08/28/22 23:33> Stated complaint: SOB <Nikia Kaplan PA-C - Last Filed: 08/28/22 23:33> Time Seen by Provider: 08/28/22 17:59 <Nikia Kaplan PA-C - Last Filed: 08/28/22 23:33> History of Present Illness HPI narrative: Patient is a 77-year-old female with history of CHF, COPD, meningioma, here for evaluation of dizziness over the past 3 days. Patient states that she has had lots of difficulty with ambulation and has felt very unsteady on her feet. The dizziness comes at random and is not provoked by position changes or turning her head. She additionally notes increased shortness of breath from her baseline, she wears 3 L O2 at all times due to COPD but recently has felt dyspneic at rest which is new for her. No chest pain. She had a cardiac catheterization 9 days ago at [facility] but apparently they were unable to visualize her coronary arteries due to bronchospasm and therefore the procedure was terminated. She is reported a lot of pain at the access site in her right femoral access site and bruising. <Nikia Kaplan PA-C - Last Filed: 08/28/22 23:33> Related Data Home medications: Home Medications Medication Instructions Recorded Confirmed albuterol sulfate 90 mcg/actuation 1 puff inhalation Q4H PRN 06/01/19 09/24/21 aerosol inhaler (ProAir HFA) Shortness Of Breath Or Wheezing budesonide-formoterol HFA 160 2 puff inhalation BID 06/01/19 09/24/21 mcg-4.5 mcg/actuation aerosol inhaler (Symbicort) cetirizine 10 mg tablet 10 mg PO DAILY 06/01/19 09/24/21 clopidogrel 75 mg tablet 75 mg PO DAILY 06/01/19 09/24/21 ezetimibe 10 mg tablet 10 mg PO DAILY 06/01/19 09/24/21 montelukast 10 mg tablet 10 mg PO HS 06/01/19 09/24/21 (Singulair) rosuvastatin 10 mg tablet 10 mg PO DAILY 06/01/19 09/24/21 tiotropium bromide 18 mcg capsule 1 cap inhalation DAILY 06/01/19 09/24/21 with inhalation device (Spiriva with HandiHaler) furosemide 40 mg tablet (Lasix) 40 mg PO DAILY 06/02/19 09/24/21 amlodipine 2.5 mg tablet 7.5 mg PO DAILY 06/21/20 09/24/21 celecoxib 200 mg capsule 200 mg PO DAILY 09/24/21 09/24/21 clonazepam 1 mg tablet 1 mg PO TID PRN Anxiety 09/24/21 09/24/21 <Nikia Kaplan PA-C - Last Filed: 08/28/22 23:33> Allergies/adverse reactions: Allergies Allergy/AdvReac Type Severity Reaction Status Date / Time Penicillins Allergy Unknown hives, Verified 07/01/22 15:11 tongue swelling sertraline AdvReac Mild Other Verified 07/01/22 15:11 <Nikia Kaplan PA-C - Last Filed: 08/28/22 23:33> Review of Systems Review of Systems: Gen: Reports dizziness. Denies fevers or chills Eyes: Denies eye pain or visual change ENT: Denies congestion Respiratory: Reports shortness of breath and cough. CV: Denies chest pain or palpitations GI: Denies abdominal pain nausea, emesis or diarrhea denies burning, urgency, frequency or hematuria Musculoskeletal: Reports pain in right groin access site. Denies back pain or muscle pain Neuro: Denies numbness, tingling, weakness or focal weakness Skin: Denies rash Except as documented, all other systems reviewed and negative <Nikia Kaplan PA-C - Last Filed: 08/28/22 23:33> [facility] Past Medical History Medical History: Medical History Anemia Anxiety Arthritis Asthma Cerebrovascular accident Chronic obstructive pulmonary disease Chronic respiratory failure with hypoxia, on home oxygen therapy Congestive heart failure Echocardiogram in September 2017 showed normal LV systolic function with an EF of 65% and impaired diastolic relaxation grade 1. Coronary artery disease Depression Hemorrhoids Hypertension Kidney stones Meningioma Osteoporosis Osteoporosis Scoliosis Skin cancer Uterine fibroid <Nikia
[2022-08-28] MEDS: MECLIZINE HCL 12.5 MG TABLET PO (18:23)
[2022-08-28 18:28] LABS: Magnesium 2.2 mg/dL (1.6-2.3)
[2022-08-28] MEDS: IPRATROPIUM BR 0.02% INH SOLN 0.5 MG/2.5 ML VIAL INHALATION ×2 (18:29→22:40)
[2022-08-28] MEDS: ALBUTEROL SULFATE NEB 2.5 MG/3 ML INH INHALATION ×2 (18:29→22:40)
[2022-08-28 18:37] LABS: NT Pro B Type Natriuretic Pept 235 pg/mL (19.9-100)
[2022-08-28 18:38] LABS: Prothrombin Time 12.8 Seconds (11.1-14.7)
[2022-08-28 18:39] LABS: Partial Thromboplastin Time 31.2 SECONDS (22.3-36.8)
[2022-08-28 21:19] LABS: Influenza A QL RT-PCR Negative (Negative); Influenza B QL RT-PCR Negative (Negative); SARS-CoV-2 RNA PCR Negative
[2022-08-28] MEDS: methylPREDNISolone SOD SUCC 125 MG VIAL IV PUSH (23:10)
== END 2022-08-28 23:42 | disposition left against medical advice (07) ==
PROVIDERS: Emergency Medicine; Emergency Provider Physician Assistant; PCP Nurse Practitioner Family
DX: J44.1 Chronic obstructive pulmonary disease with (acute) exacerbation (principal); J96.20 Acute and chronic respiratory failure, unspecified whether with hypoxia or hypercapnia; R26.9 Unspecified abnormalities of gait and mobility; I25.10 Atherosclerotic heart disease of native coronary artery without angina pectoris; I50.9 Heart failure, unspecified; I11.0 Hypertensive heart disease with heart failure; Z87.891 Personal history of nicotine dependence; Z20.822 Contact with and (suspected) exposure to COVID-19; I97.630 Postprocedural hematoma of a circulatory system organ or structure following a cardiac catheterization
CPT/HCPCS: 36415; 70450; 70496; 70498; 71046; 80053; 83735; 83880; 85025; 85610; 85730; 87636; 93005; 93926; 94640; 96374; 99284; A9270; J2930; Q9967

== ENCOUNTER 2023-01-08 12:35 | Inpatient (IN) | payer MEDICARE, MEDICAID, SELFPAY ==
[2023-01-08] VITALS (31 sets, daily range): BP systolic 106–145; BP diastolic 55–104; PULSE 83–101; RESP 13–23; TEMP 35.6–36.6; O2SAT 94–100; BMI 26.2
--- NOTE | ~2023-01-08 | CT_ITS ---
EXAMINATION: CT thoracic lumbar wo con DATE: 01/08/2023 14:49 INDICATION: fall . TECHNIQUE: Computed tomography (CT) of the thoracic and lumbar spine was performed without intravenou s contrast. The dose-length product was 1158.21 mGy-cm. COMPARISON: None FINDINGS: THORACIC SPINE: Mild scoliotic curvature. Vertebral body alignment intact. Vertebral body heights preserved. Multilev el mild degenerative disc disease. No severe central canal or neural foraminal narrowing. No traumati c malalignment or fracture. Visualized lung parenchyma is clear. Aortic valve and coronary artery ty cifications LUMBAR SPINE: Mild scoliotic curvature. 5 nonrib-bearing lumbar-type vertebral bodies. Pedicles intact. Normal vert ebral body alignment. Vertebral body heights preserved. Multilevel severe degenerative disc disease. Multilevel moderate facet facet arthropathy. IMPRESSION: No acute fracture or traumatic myeloma detected in the thoracic or lumbar spine Reviewed, dictated and finalized at location K.
--- NOTE | ~2023-01-08 | CT_ITS ---
EXAMINATION: CT brain wo con DATE: 01/10/2023 10:12 INDICATION: Fall. TECHNIQUE: Computed tomography (CT) of the head was performed without intravenous contrast. The mA wa s adjusted according to patient size. Iterative reconstruction technique was employed. Exam dose: 60 5.33 mGy-cm total exam DLP. COMPARISON: 01/08/2023 CT brain FINDINGS: The examination is limited due to motion artifact. Large dense calcification measuring up to approximately 16 x 17 x 22 cm is again noted at the posteri or aspect of the corpus callosum, unchanged in appearance since 01/08/2023. There is nonspecific diminished attenuation of the cerebral white matter, likely due to chronic small vessel ischemic changes. Bilateral carotid siphon internal carotid artery calcifications are noted. No intracranial mass lesion or hemorrhage, midline shift or mass effect or subdural or epidural hemat jing is detected. No fracture or bone destruction of the cranial vault. The mastoid air cells and included paranasal sinuses are normally developed and aerated. IMPRESSION: No change since 01/08/2023 Reviewed, dictated and finalized at [facility]. Reviewed, dictated and finalized at location B. IMPRESSION: No change since 01/08/2023
--- NOTE | ~2023-01-08 | XR_ITS ---
AP view of the pelvis and AP and lateral views of the bilateral hips Clinical history: Pain Findings: No acute fracture or dislocation is seen. Osseous alignment is anatomic. There is mild to m oderate osteoarthritis at the right hip joint. There is minimal degenerative change of the left hip j oint. Soft tissues are unremarkable. 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 Minimal degenerative change of the left hip joint. Reviewed, dictated and finalized at location M. 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 Minimal degenerative change of the left hip joint.
--- NOTE | ~2023-01-08 | CT_ITS ---
EXAMINATION: CT cervical spine wo con DATE: 01/10/2023 10:13 INDICATION: Fall. TECHNIQUE: Computed tomography (CT) of the cervical spine was performed without intravenous contrast. Automated exposure control and iterative reconstruction technique were employed. Exam dose: 253.04 mGy-cm total exam DLP. COMPARISON: None FINDINGS: There is reversal of cervical curvature. Moderate degenerative disease at C3-4. Severe degenerative disc disease C4-5, C5-6 with associated mi ld retrolisthesis at these 2 levels. C1 and C2 are normally aligned and the odontoid process is intact. No fracture or dislocation or lock ed facet or prevertebral soft tissue swelling is noted. IMPRESSION: Reversal of cervical curvature Multilevel degenerative disc disease, moderate at C3-4, severe at C4-5 and C5-6, with mild retrolisth esis at the latter 2 interspaces No fracture or dislocation or locked facet Reviewed, dictated and finalized at [facility]. Reviewed, dictated and finalized at location B. IMPRESSION: Reversal of cervical curvature Multilevel degenerative disc disease, moderate at C3-4, severe at C4-5 and C5-6 , with mild retrolisthesis at the latter 2 interspaces No fracture or dislocation or locked facet
--- NOTE | ~2023-01-08 | CT_ITS ---
EXAMINATION: CT brain wo con DATE: 01/08/2023 14:48 INDICATION: Fall. TECHNIQUE: Computed tomography (CT) of the head was performed without intravenous contrast. The mA wa s adjusted according to patient size. Iterative reconstruction technique was employed. The dose-lengt h product was 605.33 mGy-cm. COMPARISON: Head CT 08/28/2022 FINDINGS: There is a 2.2 x 1.4 x 1.6 cm calcified mass abutting the falx posterior to the corpus call osum. There are scattered areas of low attenuation in the cerebral white matter. There is an old lacu ya infarct in the right basal ganglia. There is no acute ischemic infarct or intracranial hemorrhage . The ventricles are normal in size. There are likely changes of ocular lens replacement surgeries. T he mastoid air cells are normal. The paranasal sinuses are clear. IMPRESSION: 1. Old lacunar infarct in the right basal ganglia. 2. Stable extensive nonspecific cerebral white matter disease, which likely represents chronic small vessel ischemic disease. 3. Chronic 2.2 cm calcified mass posterior to the corpus callosum, consistent with a meningioma. Reviewed, dictated and finalized at location A. IMPRESSION: 1. Old lacunar infarct in the right basal ganglia. 2. Stable extensive nonspecific cerebral white matter disease, which likely rep resents chronic small vessel ischemic disease. 3. Chronic 2.2 cm calcified mass posterior to the corpus callosum, consistent w ith a meningioma.
--- NOTE | ~2023-01-08 | XR_ITS ---
XR chest 1V DATE: 01/08/2023 14:50 INDICATION: Lightheadedness TECHNIQUE: AP chest COMPARISON: 08/28/2022 PA and lateral chest FINDINGS: Bilateral hyperinflation suggesting obstructive airways disease. Normal heart size. Aortic arch calcification. teletypesetter monitor device overlies the left chest. No pulmonary infiltrate or consolidation, pleural effusion or pulmonary vascular congestion or pneumo thorax is detected. Diffuse osteopenia. Thoracolumbar dextroscoliosis. IMPRESSION: Bilateral hyperinflation suggesting COPD No active cardiopulmonary disease is noted otherwise Aortic calcification Reviewed, dictated and finalized at location B.
--- NOTE | ~2023-01-08 | CT_ITS ---
EXAMINATION: CT cervical spine wo con DATE: 01/08/2023 14:48 INDICATION: Neck injury. Fall. TECHNIQUE: Computed tomography (CT) of the cervical spine was performed without intravenous contrast. Automated exposure control and iterative reconstruction technique were employed. The dose-length pro duct was 199.13 mGy-cm. COMPARISON: Brain MRI 10/17/2017, neck CTA 08/28/2022 FINDINGS: There is a 1.9 x 2.0 cm subcutaneous mass inferior to left submandibular gland, which measu red 1.3 cm on 10/17/17. There is 2 mm retrolisthesis of C4 on C5 and C5 on C6. Vertebral body heights are normal. There is moderately decreased disc height at C3-C4, severely decreased disc height at C4- C5 and C5-C6, and mildly decreased disc height at C6-C7. The following disc levels are specifically d iscussed: C2-C3: There is no uncovertebral joint osteoarthritis. There is mild bilateral facet joint osteoarthr itis. There is no neural foraminal stenosis. There is no central canal stenosis. C3-C4: There is moderate right and severe left uncovertebral joint osteoarthritis. There is mild bila teral facet joint osteoarthritis. There is mild bilateral neural foraminal stenosis. There is no cent ral canal stenosis. C4-C5: There is severe bilateral uncovertebral joint osteoarthritis. There is severe bilateral facet joint osteoarthritis. There is mild bilateral neural foraminal stenosis. There is mild central canal stenosis. C5-C6: There is severe bilateral uncovertebral joint osteoarthritis. There is moderate bilateral face t joint osteoarthritis. There is mild bilateral neural foraminal stenosis. There is mild central mili l stenosis. C6-C7: There is severe bilateral uncovertebral joint osteoarthritis. There is severe right and mild l eft facet joint osteoarthritis. There is mild bilateral neural foraminal stenosis. There is mild cent ral canal stenosis. C7-T1: There is no uncovertebral joint osteoarthritis. There is mild bilateral facet joint osteoarthr itis. There is no neural foraminal stenosis. There is no central canal stenosis. IMPRESSION: 1. No fracture. 2. Severe cervical spondylosis. 3. 2.0 cm subcutaneous mass inferior to left submandibular gland with increase in size from 1.3 cm on 10/17/2017. The slow rate of growth suggests this is a benign finding such as a sebaceous cyst. Reviewed, dictated and finalized at location A. IMPRESSION: 1. No fracture. 2. Severe cervical spondylosis. 3. 2.0 cm subcutaneous mass inferior to left submandibular gland with increase in size from 1.3 cm on 10/17/2017. The slow rate of growth suggests this is a be nign finding such as a sebaceous cyst.
--- NOTE | ~2023-01-08 | CT_ITS ---
EXAMINATION: CT pelvis wo con DATE: 01/08/2023 14:49 INDICATION: Fall, groin pain TECHNIQUE: Computed tomography (CT) of the pelvis was performed without intravenous contrast. Automat ed exposure control and iterative reconstruction technique were employed. The dose-length product was 349.43 mGy-cm. COMPARISON: None FINDINGS: Field, field findings mild left and moderate right hip osteoarthritis. Mild bilateral SI joint degene rative change. Multilevel severe lower lumbar degenerative disc disease. Atherosclerotic calcificatio ns. Mildly distended urinary bladder with no wall thickening. Large right inferior gluteal muscle and subcutaneous contusion. IMPRESSION: 1. No acute osseous finding in the pelvis. 2. Large right inferior gluteal muscle and subcutaneous contusion Reviewed, dictated and finalized at location K.
--- NOTE | 2023-01-08 12:55 | ECG_ITS ---
Measurements Intervals [place] Rate: 92 P: 82 [place]: 135 QRS: 68 QRSD: 78 T: 76 QT: 365 QTc: 454 Interpretive Statements SINUS RHYTHM POSSIBLE RIGHT ATRIAL ENLARGEMENT LOW QRS VOLTAGE IN LIMB LEADS BORDERLINE ST ABNORMALITY- ANTEROLAT/INF LEADS BASELINE WANDER- V3 BORDERLINE ECG COMPARED TO ECG 08/28/2022 16:52:17 ST (T WAVE) DEVIATION NOW PRESENT Electronically Signed On 01-08-2023 14:45:56 CDT by Demarcus Barnard D.O.
--- NOTE | 2023-01-08 14:01 | ED.FALL ---
HPI - Fall General Chief Complaint: Fall Stated Complaint: fall Time Seen by Provider: 01/08/23 13:08 History of Present Illness HPI Narrative: Patient is a 77-year-old female presenting after a fall. Patient states that she was at [facility] when she bent over to picker packer a lottery ticket and she felt very lightheaded and then syncopized. She fell onto her right hip and was unable to stand due to severe pain. EMS was called and brought her in for evaluation. She complains of severe right hip, buttock, right lower back pain. States that she does not think that she would be able to walk. She is not sure if she struck her head. She denies neck or upper back pain. No chest pain or shortness of breath. No abdominal pain or nausea or vomiting. States that she is always on 3 L nasal cannula. Related Data Home Medications Medication Instructions Recorded Confirmed albuterol sulfate 90 mcg/actuation 1 puff inhalation Q4H PRN 06/01/19 01/08/23 aerosol inhaler (ProAir HFA) Shortness Of Breath Or Wheezing clopidogrel 75 mg tablet 75 mg PO DAILY 06/01/19 01/08/23 furosemide 40 mg tablet (Lasix) 40 mg PO DAILY 06/02/19 01/08/23 clonazepam 1 mg tablet 1 mg PO TID PRN Anxiety 09/24/21 01/08/23 bempedoic acid 180 mg-ezetimibe 10 1 tablet PO DAILY 01/08/23 01/08/23 mg tablet (Nexlizet) budesonide 3 mg 3 mg PO DAILY 01/08/23 01/08/23 capsule,delayed,extended release celecoxib 200 mg capsule 200 mg PO DAILY 01/08/23 01/08/23 formoterol fumarate 20 mcg/2 mL 20 mcg inhalation BID 01/08/23 01/08/23 solution for nebulization rosuvastatin 10 mg tablet (Crestor) 10 mg PO DAILY 01/08/23 01/08/23 semaglutide 0.25 mg or 0.5 mg (2 0.25 mg subcut WEEKLY 01/08/23 01/08/23 mg/3 mL) subcutaneous pen injector tiotropium bromide 18 mcg capsule 1 cap inhalation DAILY 01/08/23 01/08/23 with inhalation device (Spiriva with HandiHaler) trazodone 100 mg tablet 100 mg PO HS 01/08/23 01/08/23 famotidine 40 mg tablet 40 mg PO DAILY 01/10/23 01/10/23 ferrous sulfate 325 mg (65 mg 325 mg PO DAILY 01/10/23 01/10/23 iron) tablet revefenacin 175 mcg/3 mL solution 175 mcg inhalation DAILY 01/10/23 01/10/23 for nebulization (Yupelri) Allergies Allergy/AdvReac Type Severity Reaction Status Date / Time Penicillins Allergy Unknown hives, Verified 01/08/23 12:43 tongue swelling sertraline AdvReac Mild Other Verified 01/08/23 12:43 Review of Systems Review of Systems: All systems reviewed & are unremarkable except as noted in HPI and below PMFSH Past Medical History Medical History Anemia Anxiety Arthritis Asthma Cerebrovascular accident Chronic obstructive pulmonary disease Chronic respiratory failure with hypoxia, on home oxygen therapy Congestive heart failure Echocardiogram in September 2017 showed normal LV systolic function with an EF of 65% and impaired diastolic relaxation grade 1. Coronary artery disease Depression Hemorrhoids Hypertension Kidney stones Meningioma Osteoporosis Osteoporosis Scoliosis Skin cancer Uterine fibroid Surgical History Surgical History History of appendectomy History of cardiac catheterization Per patient report she had mild coronary artery disease, treated with medical management. History of cataract extraction History of laser assisted in situ keratomileusis History of tonsillectomy History of total hysterectomy with bilateral salpingo-oophorectomy (BSO) For benign uterine fibroids. 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 Code status: Do not resuscitate. Smo
[2023-01-08] MEDS: MORPHINE SULFATE (*CRX) 2 MG/ML INJ IV PUSH (14:08)
[2023-01-08] MEDS: ONDANSETRON INJ 4 MG/2 ML VIAL IV PUSH ×2 (14:08→18:29)
[2023-01-08] MEDS: LACTATED RINGERS 1,000 ML 999 ML IV CONT (14:09)
[2023-01-08 14:43] LABS: Partial Thromboplastin Time 31.7 SECONDS (22.3-36.8); Prothrombin Time 13.8 Seconds (11.1-14.7)
[2023-01-08 14:55] LABS: Troponin I < 0.012 ng/mL (0.000-0.034)
[2023-01-08] MEDS: MORPHINE SULFATE (*CRX) 4 MG/ML INJ IV PUSH (16:06)
[2023-01-08 16:55] LABS: Appearance Urine Clear (Clear); Bilirubin Urine Negative (Negative); Blood Urine Negative (Negative); Color Urine Yellow (Yellow); Glucose Urine UA Negative (Negative); Ketones Urine Negative (Negative); Leukocyte Esterase Ur Negative LEU/UL (Negative); Nitrate Urine Negative (Negative); Protein Urine Negative (Negative); Specific Grav Ur 1.008 (1.001-1.035); Urobilinogen Urine 0.2 mg/dL (<2.0); pH Urine 5.5 (5.0-9.0)
[2023-01-08 17:11] LABS: Add Urine Microscopic? NO
[2023-01-08 17:43] LABS: Creatine Kinase 82 U/L (30-135); Troponin I < 0.012 ng/mL (0.000-0.034)
--- NOTE | 2023-01-08 19:57 | PM.IMHP ---
H&P: HPI History of Present Illness Date/Time: 01/08/23 19:57 Chief Complaint: Syncope Narrative: This is 77-year-old female with a past medical history including but not limited to chronic respiratory failure on home oxygen, chronic obstructive pulmonary disease, congestive heart failure, and coronary artery disease presenting after a fall.? Patient states that she was at [facility] when she bent over to fern picker a lottery ticket and she felt very lightheaded and then fell to the ground.? She fell onto her right hip and was unable to stand due to severe pain.? EMS was called and brought her in for evaluation.? She complains of severe right hip, buttock, right lower back pain.? States that she does not think that she would be able to walk.? She is not sure if she struck her head.? She denies neck or upper back pain.? No chest pain or shortness of breath.? No abdominal pain or nausea or vomiting.? States that she is always on 3 L nasal cannula. On arrival to the emergency department the patient was stable and afebrile with the following vital signs: A temperature of 97.8? F, pulse rate 92, respiration 20, blood pressure 106/71, pulse ox 100% on 3 L, which is her baseline. 2 sets of troponin were negative. CK was normal at 82. PT, PTT and INR were within normal limits. Head CT revealed an old lacunar infarct in the right basal ganglia, stable extensive nonspecific stay well white matter disease, likely representing chronic small-vessel ischemic disease, chronic 2.2 calcified mass posterior to the corpus callosal, consistent with a meningioma. Pelvic CT did reveal any acute osseous findings. There is a large inferior gluteal muscle and subcutaneous contusion. CT angiogram neck head did not reveal any fracture; there is severe cervical spondylosis, 2 cm subcutaneous mass inferior to less of the mandibular [place] with increase in size from 1.3 on 10/18/2019 a T. the slow rate of growth suggested this is a benign finding such as a sebaceous cyst. Chest x-ray reveals bilateral hyperinflation suggesting COPD; no active cardiopulmonary disease is noted otherwise. Aortic calcification. Thoracic lumbar spine CT did not reveal any new acute fracture or traumatic lesion in the thoracic or lumbar spine. The patient was started on IV fluid, pain management, fall precautions. The hospital medicine service was consulted for further evaluation and management. Review of Systems Review of Systems: All systems reviewed & are unremarkable except as noted in HPI and below PMFSH Past Medical History Medical History Anemia Anxiety Arthritis Asthma Cerebrovascular accident Chronic obstructive pulmonary disease Chronic respiratory failure with hypoxia, on home oxygen therapy Congestive heart failure Echocardiogram in September 2017 showed normal LV systolic function with an EF of 65% and impaired diastolic relaxation grade 1. Coronary artery disease Depression Hemorrhoids Hypertension Kidney stones Meningioma Osteoporosis Osteoporosis Scoliosis Skin cancer Uterine fibroid Surgical History Surgical History History of appendectomy History of cardiac catheterization Per patient report she had mild coronary artery disease, treated with medical management. History of cataract extraction History of laser assisted in situ keratomileusis History of tonsillectomy History of total hysterectomy with bilateral salpingo-oophorectomy (BSO) For benign uterine fibroids. 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 Code status: Do not resuscitate. Malachi
--- NOTE | 2023-01-08 21:44 | PC.NURSE ---
clarified medication list with son Orlin, Orlin sister to bring in list tomorrow in case any medication needs corrected.
[2023-01-09] VITALS (16 sets, daily range): BP systolic 102–129; BP diastolic 56–66; PULSE 79–110; RESP 16–22; TEMP 36.2–36.8; O2SAT 93–100; BMI 26.2
[2023-01-09] MEDS: ACETAMINOPHEN 325 MG TABLET 650 MG PO ×2 (01:59→09:20)
[2023-01-09 03:28] LABS: Hematocrit 37.1 % (37.0-47.0); Hemoglobin 11.7 g/dL (12.0-15.0); Mean Corpuscular HGB Conc 31.5 g/dl (32-36); Mean Corpuscular Hemoglobin 29.5 pg (26-34); Mean Corpuscular Volume 93.5 fl (80-100); Mean Platelet Volume 12.3 fl (7.4-10.4); Platelet Count Result 260 k/mm3 (150-375); Red Blood Count 3.97 M/mm3 (4.2-5.4); Red Cell Distribution Width 14.6 % (11.5-14.5); White Blood Count 10.1 K/mm3 (4.5-10.0)
[2023-01-09] MEDS: ALBUTEROL SULFATE NEB 2.5 MG/3 ML INH INHALATION (04:04)
[2023-01-09] MEDS: IPRATROPIUM BR 0.02% INH SOLN 0.5 MG/2.5 ML VIAL INHALATION ×5 (04:04→20:10)
[2023-01-09 04:12] LABS: Blood Urea Nitrogen 14 mg/dL (7-17); Calcium 8.4 mg/dL (8.4-10.2); Carbon Dioxide > 40 mmol/L (22-30); Chloride 96 mmol/L (98-107); Estimated CRCL calculation 47 ml/min; Estimated Glomerular Filt Rate > 60; Glucose 142 mg/dL (65-110); Potassium 3.7 mmol/L (3.4-5.0); Sodium 137 mmol/L (137-145)
--- NOTE | 2023-01-09 07:17 | WPDURCON ---
Assessment and Plan Assessment and plan (1) Urinary retention with incomplete bladder emptying: Code(s): R33.9 - Retention of urine, unspecified Status: Acute Assessment and Plan: Urinary retention which, by history, sounds as if it has been longstanding. 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 I will start tamsulosin but would remain a command discharge with an indwelling catheter into we can do urodynamics in our office - discussed with pt. Urology Consult Note HPI Date Seen: 01/09/23 Requesting Physician: Guero Deluca MD Primary Care Provider: Sandra Garsia, [employer]ACH[employer]ER Consult Narrative Narrative: Roxana Child is a 77 year old female previously unknown to our practice who is admitted through the emergency department with a syncopal episode. Time of admission she complained of strength urea and a sense of incomplete bladder emptying. She reports this has been ongoing for some time at home. She denies a history of recurrent urinary tract infections or hematuria. She was catheterized with significant relief of pelvic distention and discomfort. I do not know the exact volume obtained with catheterization. Review of Systems Review of Systems: All systems reviewed & are unremarkable except as noted in HPI and below PMFSH Past Medical History Medical History Anemia Anxiety Arthritis Asthma Cerebrovascular accident Chronic obstructive pulmonary disease Chronic respiratory failure with hypoxia, on home oxygen therapy Congestive heart failure Echocardiogram in September 2017 showed normal LV systolic function with an EF of 65% and impaired diastolic relaxation grade 1. Coronary artery disease Depression Hemorrhoids Hypertension Kidney stones Meningioma Osteoporosis Osteoporosis Scoliosis Skin cancer Uterine fibroid Surgical History Surgical History History of appendectomy History of cardiac catheterization Per patient report she had mild coronary artery disease, treated with medical management. History of cataract extraction History of laser assisted in situ keratomileusis History of tonsillectomy History of total hysterectomy with bilateral salpingo-oophorectomy (BSO) For benign uterine fibroids. 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 Code status: Do not resuscitate. Smoking packs per day: 3 Smoking cigarettes per day: 60.0 Years smoked: 50 Smoking pack-years: 150.00 Smoking status: Former smoker Second hand tobacco smoke exposure: Yes Alcohol intake: current Drinks per week: 2 Substance use: never Lack of Transportation: No Lack of Food: Never True Current Housing: I Have Housing Concerned About Future Housing: No Difficulty Paying Gas/Electric Bills: No Difficulty Paying for Meds: No Currently Unemployed: No Education: High School Diploma/GED Difficulty w/ Childcare or Family Care: No Living arrangements: alone Occupation/Education: retired Spiritual care concerns: No Agree to blood products: Yes Meds Home Medications and Allergies Home Medications Medication Instructions Recorded Confirmed Type albuterol sulfate 90 mcg/actuation 1 puff inhalation Q4H PRN 06/01/19 01/08/23 History aerosol inhaler (ProAir HFA) Shortness Of Breath Or Wheezing clopidogrel 75 mg tablet 75 mg PO DAILY 06/01/19 01/08/23 History furosemide 40 mg tablet (Lasix) 40 mg PO DAILY 06/02/19 01/08/23 History amlodipine 2.5 mg tablet 7.5 mg PO DAILY 06/21/20 01/08/23 History clonazepam 1 mg tablet 1 mg PO TID PRN
[2023-01-09] MEDS: BUDESONIDE RESPULE NEB 0.5 MG/2 ML AMP 0.25 MG INHALATION (07:20)
[2023-01-09] MEDS: guaiFENesin 12 HR 600 MG TABCR PO ×2 (09:21→20:37)
[2023-01-09] MEDS: ROSUVASTATIN 10 MG TABLET PO (09:21)
[2023-01-09] MEDS: FUROSEMIDE 40 MG TABLET PO (09:22)
[2023-01-09] MEDS: amLODIPine BESYLATE 2.5 MG TABLET 7.5 MG PO (09:22)
[2023-01-09] MEDS: METOPROLOL TARTRATE 12.5 MG TABLET PO ×2 (09:23→20:37)
[2023-01-09] MEDS: CLOPIDOGREL BISULFATE 75 MG TABLET PO (09:23)
[2023-01-09] MEDS: ENOXAPARIN 30 MG/0.3 ML SYRINGE SUB-Q (09:23)
[2023-01-09] MEDS: CELECOXIB 200 MG CAPSULE PO (09:23)
[2023-01-09] MEDS: LIDOCAINE 5% PATCH 1 PATCH TRANSDERM (09:24)
[2023-01-09] MEDS: clonazePAM (*CRX) 0.5 MG TABLET 1 MG PO (09:34)
[2023-01-09 10:39] LABS: SARS-CoV-2 RNA PCR Negative (Negative)
--- NOTE | 2023-01-09 11:32 | PM.IMPN ---
Progress Note: A&P Assessment and Plan (1) Syncope: Code(s): R55 - Syncope and collapse Status: Acute Assessment and Plan: Patient had a syncopal/presyncopal episode after standing upright from bending over. Troponin negative x2. Head CT showed old lacunar infarction right basal ganglia as well as stable extensive nonspecific cerebral white matter disease. She has a chronic 2.2 cm calcified mass consistent with meningioma. Urine is clear. Will check orthostatic vital signs. Place on telemetry. (2) Fall: Code(s): W19.XXXA - Unspecified fall, initial encounter Status: Acute Assessment and Plan: Patient admitted for evaluation and management after a fall. Pelvic CT showed no acute osseous abnormalities. She did have a large right inferior gluteal muscle and subcutaneous contusion. Cervical spine CT showed no fracture. Thoraco lumbar spine CT also showing no fracture. Soft-tissue contusion of the right inferior gluteal muscle currently treated with pain management. Maintain fall precaution. PT/OT (3) Contusion of soft tissue: Code(s): T14.8XXA - Other injury of unspecified body region, initial encounter Status: Acute Assessment and Plan: As above. Symptomatic care. Continue pain management (4) Chronic respiratory failure with hypoxia, on home oxygen therapy: Code(s): J96.11 - Chronic respiratory failure with hypoxia; Z99.81 - Dependence on supplemental oxygen Status: Acute Assessment and Plan: Patient has COPD with chronic respiratory failure on home oxygen at 3 L. chest x-ray shows hyperinflation but no acute findings otherwise. Continue inhalers and nebulizer treatments. (5) Hypertension: Code(s): I10 - Essential (primary) hypertension Status: Acute Assessment and Plan: Patient's blood pressure was reviewed on 01/09 Blood pressure remains well controlled. Will continue to monitor (6) Congestive heart failure: Code(s): I50.9 - Heart failure, unspecified Status: Acute Assessment and Plan: Clinically euvolemic. No evidence of acute exacerbation. Continue home medication. (7) COPD (chronic obstructive pulmonary disease): Code(s): J44.9 - Chronic obstructive pulmonary disease, unspecified Status: Acute Assessment and Plan: As above. Distant breath sound mostly with faint wheezes. Continue albuterol, formoterol, budesonide. Plan DVT prophylaxis with Lovenox. Code status Full Subjective Date/time seen: 01/09/23 11:32 Interval history: 77yo female wit COPD, chronic resp failure on home O2 and CHF here for a fall. Assuming care. Chart reviewed. Patient states that she bent over to black pickler a lottery ticket and then when she stood up she felt a spinning sensation and having became ?solid white?. She does remember falling and hitting the ground landing on her right buttock but feels that she may have had momentary loss of consciousness. No head injury. She does have a history of ?blackout spells?. Her right hip pain is better today. She has RLQ pain on exam that has been present for about 2 weeks. Worse when moving her o2 tanks or other heavy items. Exam Narrative: AF 97.5 122/66 106 18 98% 3L Gen - NARD sittin gup in bed Chest - distant BS with faint expiratory wheezes. CV - RRR S1/S2 Abd - soft, mild RLQ pain. no guarding, rebound or referred pain. Ext - No pedal edema. Negative Ryan's Psych - Nml mood and affect Skin - Warm and dry. large hand sized bruise right buttock without underlying large hematoma Objective Data Vital Signs Vital Signs: Vital Signs - 24 hr 01/08/23 12:31 01/08/23 13:29 01/08/23 13:30 Temperature 97.8 F Pulse Rate 92 89 92 Respiratory Rate 20 17 15 Blood Pressure 106/71 Pulse Oximetry 100 99 97 Oxygen Delivery Nasal Cannula Oxygen Flow Rate 3 Fraction of Inspired Oxygen 01/08/23
[2023-01-09] MEDS: UMECLIDINIUM BROMIDE 62.5 MCG ELLIPTA 1 PUFF INHALATION (11:54)
[2023-01-09] MEDS: TAMSULOSIN HCL 0.4 MG CAPSULE PO (12:16)
--- NOTE | 2023-01-09 16:30 | PCPTNOTE ---
On 01/09/23, the student, DARINEL Abbott, provided care and completed [facility] documentation on this patient. I have reviewed the student's documentation and agree with the findings.
[2023-01-09] MEDS: traZODone HCL 50 MG TABLET 100 MG PO (20:37)
[2023-01-10] VITALS (24 sets, daily range): BP systolic 70–109; BP diastolic 53–87; PULSE 82–118; RESP 18–24; TEMP 36.4–37.2; O2SAT 90–100
--- NOTE | 2023-01-10 00:24 | PC.NURSE ---
Pt had an unwitness fall in room. Pt states, I do not know why I was getting up. I move the table out the way. Pt was found on ground at the end of the bed at 2305. 3 side rails up. Pt was laying on right side with head towards wall, feet towards end of bed and back towards room door. NC in place, lloyd in place. Pt denies hitting head and only complaint of right elbow pain; no discoloration, no bleeding, no open wounds, scrap present. Vitals stable. Pt assessed; negative. Pt placed back in bed and was educated on the use of using the call light and the importance of safety. Pt bed alarm was placed on Zone 2. Continued monitoring by all medical staff.
[2023-01-10] MEDS: IPRATROPIUM BR 0.02% INH SOLN 0.5 MG/2.5 ML VIAL INHALATION ×7 (00:41→23:50)
[2023-01-10] MEDS: BUDESONIDE RESPULE NEB 0.5 MG/2 ML AMP 0.25 MG INHALATION (07:00)
[2023-01-10] MEDS: UMECLIDINIUM BROMIDE 62.5 MCG ELLIPTA 1 PUFF INHALATION (07:00)
[2023-01-10] MEDS: ENOXAPARIN 30 MG/0.3 ML SYRINGE SUB-Q (08:28)
[2023-01-10] MEDS: METOPROLOL TARTRATE 12.5 MG TABLET PO ×2 (08:28→20:19)
[2023-01-10] MEDS: CLOPIDOGREL BISULFATE 75 MG TABLET PO (08:29)
[2023-01-10] MEDS: amLODIPine BESYLATE 2.5 MG TABLET 7.5 MG PO (08:29)
[2023-01-10] MEDS: ROSUVASTATIN 10 MG TABLET PO (08:30)
[2023-01-10] MEDS: CELECOXIB 200 MG CAPSULE PO (08:30)
[2023-01-10] MEDS: guaiFENesin 12 HR 600 MG TABCR PO ×2 (08:30→20:21)
[2023-01-10] MEDS: FUROSEMIDE 40 MG TABLET PO (08:30)
[2023-01-10] MEDS: TAMSULOSIN HCL 0.4 MG CAPSULE PO (08:30)
[2023-01-10] MEDS: ACETAMINOPHEN 325 MG TABLET 650 MG PO (08:32)
[2023-01-10] MEDS: LIDOCAINE 5% PATCH 1 PATCH TRANSDERM ×2 (08:34→20:21)
--- NOTE | 2023-01-10 08:40 | PM.IMPN ---
Progress Note: A&P Assessment and Plan (1) Fall: Code(s): W19.XXXA - Unspecified fall, initial encounter Status: Acute Assessment and Plan: Patient admitted for evaluation and management after a fall. Pelvic CT showed no acute osseous abnormalities. She did have a large right inferior gluteal muscle and subcutaneous contusion. Cervical spine CT showed no fracture. Thoraco lumbar spine CT also showing no fracture. Soft-tissue contusion of the right inferior gluteal muscle currently treated with pain management. She fell again last night. Will do neurochecks. She is not on narcotics. Repeat CT head and c-spine. Check hip xray. Maintain fall precaution. PT/OT if no fracture. (2) Syncope: Code(s): R55 - Syncope and collapse Status: Acute Assessment and Plan: Patient had a syncopal/presyncopal episode after standing upright from bending over. Troponin negative x2. Head CT showed old lacunar infarction right basal ganglia as well as stable extensive nonspecific cerebral white matter disease. She has a chronic 2.2 cm calcified mass consistent with meningioma. Urine is clear. Will check orthostatic vital signs. (3) Contusion of soft tissue: Code(s): T14.8XXA - Other injury of unspecified body region, initial encounter Status: Acute Assessment and Plan: As above. Symptomatic care. (4) Chronic respiratory failure with hypoxia, on home oxygen therapy: Code(s): J96.11 - Chronic respiratory failure with hypoxia; Z99.81 - Dependence on supplemental oxygen Status: Acute Assessment and Plan: Patient has COPD with chronic respiratory failure on home oxygen at 3 L. CXR shows hyperinflation but no acute findings otherwise. Continue inhalers and nebulizer treatments. (5) Hypertension: Code(s): I10 - Essential (primary) hypertension Status: Acute Assessment and Plan: Patient's blood pressure was reviewed on 01/10 Blood pressure remains well controlled. Will continue to monitor (6) Congestive heart failure: Code(s): I50.9 - Heart failure, unspecified Status: Acute Assessment and Plan: Clinically euvolemic. No evidence of acute exacerbation. Continue home medication. (7) COPD (chronic obstructive pulmonary disease): Code(s): J44.9 - Chronic obstructive pulmonary disease, unspecified Status: Acute Assessment and Plan: As above. Distant breath sound mostly with faint wheezes. Continue albuterol, formoterol, budesonide. Plan DVT prophylaxis with Lovenox. Code status Full Subjective Date/time seen: 01/10/23 08:40 Interval history: 77yo female wit COPD, chronic resp failure on home O2 and CHF here for a fall. Patient fell getting out of bed last night. This was a unwitnessed fall. Patient states that she got tripped up at the side of the bed and fell against the wall hitting the back of her head and then slid to the floor. She is alert and mostly oriented but her history is somewhat suspect. She complains now of left hip pain today. She recalls the whole event. No syncopal episode. Exam Narrative: AF 98.9 109/87 88 20 90% 3L Gen - NARD lying semi-recumbent in bed Chest - distant BS. nml RR CV - RRR S1/S2. Tele showing occasional sinus tach Abd - soft, NT/ND, +BS Ext - No pedal edema. Pain with int/ext hip rotation Psych - Nml mood and affect. AOx3 (not Oli name) Skin - Warm and dry. large hand sized bruise right buttock without underlying large hematoma (no change) Objective Data Vital Signs Vital Signs: Vital Signs - 24 hr 01/09/23 09:23 01/09/23 11:00 01/09/23 11:35 Temperature Pulse Rate 106 H Respiratory Rate Blood Pressure Pulse Oximetry Oxygen Delivery Nasal Cannula Nasal Cannula Oxygen Flow Rate 3 3 Fraction of Inspired Oxygen 01/09/23 11:54 01/09/23 12:01 01/09/23 14:00 Temperature 97.2 F L Pul
[2023-01-10] MEDS: traZODone HCL 50 MG TABLET 100 MG PO (20:21)
[2023-01-11] VITALS (23 sets, daily range): BP systolic 103–134; BP diastolic 38–92; PULSE 88–114; RESP 16–22; TEMP 36.9–37.2; O2SAT 90–97
[2023-01-11 06:12] LABS: Hematocrit 35.2 % (37.0-47.0); Hemoglobin 11.1 g/dL (12.0-15.0); Mean Corpuscular HGB Conc 31.5 g/dl (32-36); Mean Corpuscular Hemoglobin 30.1 pg (26-34); Mean Corpuscular Volume 95.4 fl (80-100); Mean Platelet Volume 11.5 fl (7.4-10.4); Platelet Count Result 203 k/mm3 (150-375); Red Blood Count 3.69 M/mm3 (4.2-5.4); Red Cell Distribution Width 14.2 % (11.5-14.5); White Blood Count 10.2 K/mm3 (4.5-10.0)
[2023-01-11 06:23] LABS: Blood Urea Nitrogen 13 mg/dL (7-17); Calcium 8.4 mg/dL (8.4-10.2); Carbon Dioxide > 40 mmol/L (22-30); Chloride 94 mmol/L (98-107); Estimated CRCL calculation 54 ml/min; Estimated Glomerular Filt Rate > 60; Glucose 110 mg/dL (65-110); Potassium 3.8 mmol/L (3.4-5.0); Sodium 137 mmol/L (137-145)
[2023-01-11] MEDS: BUDESONIDE RESPULE NEB 0.5 MG/2 ML AMP 0.25 MG INHALATION (08:07)
[2023-01-11] MEDS: IPRATROPIUM BR 0.02% INH SOLN 0.5 MG/2.5 ML VIAL INHALATION ×4 (08:08→20:32)
[2023-01-11] MEDS: UMECLIDINIUM BROMIDE 62.5 MCG ELLIPTA 1 PUFF INHALATION (08:08)
[2023-01-11] MEDS: FUROSEMIDE 40 MG TABLET PO (08:17)
[2023-01-11] MEDS: amLODIPine BESYLATE 2.5 MG TABLET 7.5 MG PO (08:17)
[2023-01-11] MEDS: ROSUVASTATIN 10 MG TABLET PO (08:17)
[2023-01-11] MEDS: TAMSULOSIN HCL 0.4 MG CAPSULE PO (08:17)
[2023-01-11] MEDS: CLOPIDOGREL BISULFATE 75 MG TABLET PO (08:18)
[2023-01-11] MEDS: guaiFENesin 12 HR 600 MG TABCR PO ×2 (08:18→21:40)
[2023-01-11] MEDS: CELECOXIB 200 MG CAPSULE PO (08:18)
[2023-01-11] MEDS: METOPROLOL TARTRATE 12.5 MG TABLET PO ×2 (08:18→21:39)
[2023-01-11] MEDS: ENOXAPARIN 30 MG/0.3 ML SYRINGE SUB-Q (08:19)
[2023-01-11] MEDS: ACETAMINOPHEN 325 MG TABLET 650 MG PO (14:30)
--- NOTE | 2023-01-11 16:21 | PM.IMPN ---
Progress Note: A&P Assessment and Plan (1) Fall: Code(s): W19.XXXA - Unspecified fall, initial encounter Status: Acute Assessment and Plan: Patient admitted for evaluation and management after a fall. Pelvic CT showed no acute osseous abnormalities. She did have a large right inferior gluteal muscle and subcutaneous contusion. Cervical spine CT showed no fracture. Thoraco lumbar spine CT also showing no fracture. Soft-tissue contusion of the right inferior gluteal muscle currently treated with pain management. She fell again in the hospital. No changes noted on neurochecks. She was not on narcotics. Repeat CT head and c-spine showed no acute findings. Repeat hip xrays negative for fracture. Continue PT/OT. She wants to go home but trying to convince patient for SNF placement or at least stay with her dtr. (2) Syncope: Code(s): R55 - Syncope and collapse Status: Acute Assessment and Plan: Patient had a syncopal/presyncopal episode after standing upright from bending over. Troponin negative x2. Head CT showed old lacunar infarction right basal ganglia as well as stable extensive nonspecific cerebral white matter disease. She has a chronic 2.2 cm calcified mass consistent with meningioma. Urine is clear. Orthostatic vital signs normal. Tele showing no dysrhythmias. Follow (3) Contusion of soft tissue: Code(s): T14.8XXA - Other injury of unspecified body region, initial encounter Status: Acute Assessment and Plan: As above. Symptomatic care. (4) Chronic respiratory failure with hypoxia, on home oxygen therapy: Code(s): J96.11 - Chronic respiratory failure with hypoxia; Z99.81 - Dependence on supplemental oxygen Status: Acute Assessment and Plan: Patient has COPD with chronic respiratory failure on home oxygen at 3 L. CXR shows hyperinflation but no acute findings otherwise. Continue inhalers and nebulizer treatments. (5) Hypertension: Code(s): I10 - Essential (primary) hypertension Status: Acute Assessment and Plan: Patient's blood pressure was reviewed on 01/11 Blood pressure remains well controlled. Will continue to monitor (6) Congestive heart failure: Code(s): I50.9 - Heart failure, unspecified Status: Acute Assessment and Plan: Clinically euvolemic. No evidence of acute exacerbation. Continue home medication. (7) COPD (chronic obstructive pulmonary disease): Code(s): J44.9 - Chronic obstructive pulmonary disease, unspecified Status: Acute Assessment and Plan: As above. Distant breath sound mostly with faint wheezes. Continue albuterol, formoterol, budesonide. (8) Urinary retention with incomplete bladder emptying: Code(s): R33.9 - Retention of urine, unspecified Status: Acute Assessment and Plan: Patient found to have urinary retention. 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 Home with indwelling Hernandez and patient will followup with Urology for urodynamics. Appreciate Urology input. Plan DVT prophylaxis with Lovenox. Code status Full Subjective Date/time seen: 01/11/23 16:21 Interval history: 77yo female wit COPD, chronic resp failure on home O2 and CHF here for a fall. Patient up to the chair. Walking with walker to the bathroom with therapy. She has been more SOB with cough and wheezing. She has chest pain with the cough. also with epistaxis. Exam Narrative: AF 98.5 23046 18 94% 3L Gen - NARD lying semi-recumbent in bed Chest - distant BS with faint expiratory wheeze. nml RR CV - RRR S1/S2. Tele showing no significant dysrhythmias Abd - soft, NT/ND, +BS - Hernandez secured draining clear yellow urine Ext - No pedal edema. Psych - Nml mood and affect. Skin - Warm and dry. Objective Data Vital Signs Vital Signs: Vital Signs - 24 hr 01/10/23 16:58 07
[2023-01-11] MEDS: ALBUTEROL SULFATE NEB 2.5 MG/3 ML INH INHALATION (20:32)
[2023-01-11] MEDS: traZODone HCL 50 MG TABLET 100 MG PO (21:37)
[2023-01-12] VITALS (24 sets, daily range): BP systolic 80–134; BP diastolic 37–73; PULSE 92–114; RESP 18–22; TEMP 36.6–37.2; O2SAT 94–98
[2023-01-12] MEDS: IPRATROPIUM BR 0.02% INH SOLN 0.5 MG/2.5 ML VIAL INHALATION ×2 (02:04→04:59)
[2023-01-12] MEDS: ALBUTEROL SULFATE NEB 2.5 MG/3 ML INH INHALATION ×3 (02:04→20:31)
[2023-01-12] MEDS: UMECLIDINIUM BROMIDE 62.5 MCG ELLIPTA 1 PUFF INHALATION (07:40)
[2023-01-12] MEDS: BUDESONIDE RESPULE NEB 0.5 MG/2 ML AMP 0.25 MG INHALATION (07:40)
[2023-01-12] MEDS: guaiFENesin 12 HR 600 MG TABCR PO ×2 (08:43→20:07)
[2023-01-12] MEDS: CLOPIDOGREL BISULFATE 75 MG TABLET PO (08:43)
[2023-01-12] MEDS: ROSUVASTATIN 10 MG TABLET PO (08:43)
[2023-01-12] MEDS: METOPROLOL TARTRATE 12.5 MG TABLET PO ×2 (08:43→20:06)
[2023-01-12] MEDS: TAMSULOSIN HCL 0.4 MG CAPSULE PO (08:44)
[2023-01-12] MEDS: FUROSEMIDE 40 MG TABLET PO (08:44)
[2023-01-12] MEDS: ENOXAPARIN 30 MG/0.3 ML SYRINGE SUB-Q (08:44)
[2023-01-12] MEDS: CELECOXIB 200 MG CAPSULE PO (08:44)
[2023-01-12] MEDS: amLODIPine BESYLATE 2.5 MG TABLET 7.5 MG PO (08:44)
[2023-01-12] MEDS: LIDOCAINE 5% PATCH 1 PATCH TRANSDERM (08:50)
[2023-01-12] MEDS: FAMOTIDINE 20 MG TABLET 40 MG PO (09:02)
[2023-01-12] MEDS: FERROUS SULFATE 325 MG TABLET DR PO (09:02)
--- NOTE | 2023-01-12 13:20 | PM.DS ---
DS: Admitting Diagnosis Discharge Date 01/12/23 Admitting Diagnosis Fall DS: Discharge Diagnosis Discharge Diagnosis (1) Fall: Code(s): W19.XXXA - Unspecified fall, initial encounter Status: Acute (2) Syncope: Code(s): R55 - Syncope and collapse Status: Acute (3) Contusion of soft tissue: Code(s): T14.8XXA - Other injury of unspecified body region, initial encounter Status: Acute (4) Chronic respiratory failure with hypoxia, on home oxygen therapy: Code(s): J96.11 - Chronic respiratory failure with hypoxia; Z99.81 - Dependence on supplemental oxygen Status: Acute (5) Hypertension: Code(s): I10 - Essential (primary) hypertension Status: Acute (6) Congestive heart failure: Code(s): I50.9 - Heart failure, unspecified Status: Acute (7) COPD (chronic obstructive pulmonary disease): Code(s): J44.9 - Chronic obstructive pulmonary disease, unspecified Status: Acute (8) Urinary retention with incomplete bladder emptying: Code(s): R33.9 - Retention of urine, unspecified Status: Acute DS: Summary Hospital Course Reason for hospitalization: 77yo female wit COPD, chronic resp failure on home O2 and CHF here for a fall. Please see H&P for details. Hospital Course: Patient admitted for evaluation and management after a fall.? Pelvic CT showed no acute osseous abnormalities.? She did have a large right inferior gluteal muscle and subcutaneous contusion.? Cervical spine CT showed no fracture.? Thoraco lumbar spine CT also showing no fracture.? Soft-tissue contusion of the right inferior gluteal muscle currently treated with pain management. She fell again in the hospital. No changes noted on neurochecks. She was not on narcotics. Repeat CT head and c-spine showed no acute findings. Repeat hip xrays negative for fracture. Continue PT/OT. She wants to go home but trying to convince patient for SNF placement or at least stay with her dtr. (2) Syncope: ?Code(s): R55 - Syncope and collapse ?Status:?Acute ?Assessment and Plan: Patient had a syncopal/presyncopal episode after standing upright from bending over.? Troponin negative x2.? Head CT showed old lacunar infarction right basal ganglia as well as stable extensive nonspecific cerebral white matter disease.? She has a chronic 2.2 cm calcified mass consistent with meningioma.? Urine is clear.? Orthostatic vital signs normal. Tele showing no dysrhythmias. Follow? (3) Contusion of soft tissue: ?Code(s): T14.8XXA - Other injury of unspecified body region, initial encounter ?Status:?Acute ?Assessment and Plan: As above. Symptomatic care.? (4) Chronic respiratory failure with hypoxia, on home oxygen therapy: ?Code(s): J96.11 - Chronic respiratory failure with hypoxia; Z99.81 - Dependence on supplemental oxygen ?Status:?Acute ?Assessment and Plan: Patient has COPD with chronic respiratory failure on home oxygen at 3 L. CXR shows hyperinflation but no acute findings otherwise.? Continue inhalers and nebulizer treatments. (5) Hypertension: ?Code(s): I10 - Essential (primary) hypertension ?Status:?Acute ?Assessment and Plan: Patient's blood pressure was reviewed on 01/11 Blood pressure remains well controlled.? Will continue to monitor ? (6) Congestive heart failure: ?Code(s): I50.9 - Heart failure, unspecified ?Status:?Acute ?Assessment and Plan: Clinically euvolemic. No evidence of acute exacerbation. Continue home medication.? (7) COPD (chronic obstructive pulmonary disease): ?Code(s): J44.9 - Chronic obstructive pulmonary disease, unspecified ?Status:?Acute ?Assessment and Plan: As above. Distant breath sound mostly with faint wheezes. Continue albuterol, formoterol, budesonide. (8) Urinary retention with incomplete bladder emptying: ?Code(s): R33.9 - Retention of urine,
--- NOTE | 2023-01-12 16:11 | PM.IMPN ---
Progress Note: A&P Assessment and Plan (1) Orthostatic hypotension: Code(s): I95.1 - Orthostatic hypotension Status: Acute Assessment and Plan: Patient's blood pressure this morning dropped to 80/37 with standing. This may be contributing to her syncopal episode. Amlodipine was stopped. Lasix on hold. Shawn hose. Normal saline x1 L. check TSH and cortisol level (2) Fall: Code(s): W19.XXXA - Unspecified fall, initial encounter Status: Acute Assessment and Plan: Patient admitted for evaluation and management after a fall. Pelvic CT showed no acute osseous abnormalities. She did have a large right inferior gluteal muscle and subcutaneous contusion. Cervical spine CT showed no fracture. Thoraco lumbar spine CT also showing no fracture. Soft-tissue contusion of the right inferior gluteal muscle currently treated with pain management. Probably orthostatic causing the fall. She fell again in the hospital. No changes noted on neurochecks. She was not on narcotics. Repeat CT head and c-spine showed no acute findings. Repeat hip xrays negative for fracture. Continue PT/OT. As above (3) Syncope: Code(s): R55 - Syncope and collapse Status: Acute Assessment and Plan: Patient had a syncopal/presyncopal episode after standing upright from bending over. Troponin negative x2. Head CT showed old lacunar infarction right basal ganglia as well as stable extensive nonspecific cerebral white matter disease. She has a chronic 2.2 cm calcified mass consistent with meningioma. Urine is clear. Orthostatic vital signs were normal yesterday but now abnormal. Tele showing no dysrhythmias. Treatment as above. Okay to stop tele. Follow (4) Contusion of soft tissue: Code(s): T14.8XXA - Other injury of unspecified body region, initial encounter Status: Acute Assessment and Plan: As above. Symptomatic care. (5) Urinary retention with incomplete bladder emptying: Code(s): R33.9 - Retention of urine, unspecified Status: Acute Assessment and Plan: Patient found to have urinary retention. 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 Home with indwelling Hernandez and patient will followup with Urology for urodynamics. Appreciate Urology input. (6) Chronic respiratory failure with hypoxia, on home oxygen therapy: Code(s): J96.11 - Chronic respiratory failure with hypoxia; Z99.81 - Dependence on supplemental oxygen Status: Acute Assessment and Plan: Patient has COPD with chronic respiratory failure on home oxygen at 3 L. CXR shows hyperinflation but no acute findings otherwise. Continue inhalers and nebulizer treatments. (7) Congestive heart failure: Code(s): I50.9 - Heart failure, unspecified Status: Acute Assessment and Plan: Clinically euvolemic. No evidence of acute exacerbation. Continue home medication. (8) COPD (chronic obstructive pulmonary disease): Code(s): J44.9 - Chronic obstructive pulmonary disease, unspecified Status: Acute Assessment and Plan: As above. Distant breath sound mostly with faint wheezes. Continue albuterol, formoterol, budesonide. (9) Hypertension: Code(s): I10 - Essential (primary) hypertension Status: Acute Assessment and Plan: Patient's blood pressure was reviewed on 01/12 As above Will continue to monitor Plan DVT prophylaxis with Lovenox. Code status Full Subjective Date/time seen: 01/12/23 16:11 Interval history: 77yo female wit COPD, chronic resp failure on home O2 and CHF here for a fall. Patient feels more short of breath today. Her right buttock is still sore but without change. No chest pain. Slight cough but overall this is better. Her epistaxis has resolved. Exam Narrative: AF ? 98.8 96/73 98 22 95% 3L Gen - NARD lying semi-recumbent in bed Chest - distan
[2023-01-12] MEDS: SODIUM CHLORIDE 0.9% IV 1,000 ML 100 ML IV CONT (16:18)
[2023-01-12] MEDS: traZODone HCL 50 MG TABLET 100 MG PO (20:07)
[2023-01-13] VITALS (11 sets, daily range): BP systolic 109–125; BP diastolic 52–98; PULSE 89–116; RESP 18–32; TEMP 36.7–37; O2SAT 94–100
[2023-01-13] MEDS: ALBUTEROL SULFATE NEB 2.5 MG/3 ML INH INHALATION ×3 (02:04→13:30)
[2023-01-13 06:47] LABS: Hematocrit 33.7 % (37.0-47.0); Hemoglobin 10.2 g/dL (12.0-15.0); Mean Corpuscular HGB Conc 30.3 g/dl (32-36); Mean Corpuscular Hemoglobin 29.1 pg (26-34); Mean Corpuscular Volume 96.3 fl (80-100); Mean Platelet Volume 12.4 fl (7.4-10.4); Platelet Count Result 214 k/mm3 (150-375); Red Cell Distribution Width 14.1 % (11.5-14.5); White Blood Count 8.5 K/mm3 (4.5-10.0)
[2023-01-13 06:58] LABS: Albumin Level 3.1 g/dL (3.5-5.1); Blood Urea Nitrogen 9 mg/dL (7-17); Carbon Dioxide > 40 mmol/L (22-30); Chloride 97 mmol/L (98-107); Estimated CRCL calculation 63 ml/min; Estimated Glomerular Filt Rate > 60; Glucose 101 mg/dL (65-110); Phosphorus 2.9 mg/dL (2.5-4.5); Potassium 3.4 mmol/L (3.4-5.0); Sodium 140 mmol/L (137-145)
[2023-01-13] MEDS: BUDESONIDE RESPULE NEB 0.5 MG/2 ML AMP 0.25 MG INHALATION (07:16)
[2023-01-13] MEDS: UMECLIDINIUM BROMIDE 62.5 MCG ELLIPTA 1 PUFF INHALATION (07:17)
[2023-01-13] MEDS: LIDOCAINE 5% PATCH 1 PATCH TRANSDERM (08:52)
[2023-01-13] MEDS: ROSUVASTATIN 10 MG TABLET PO (08:58)
[2023-01-13] MEDS: METOPROLOL TARTRATE 12.5 MG TABLET PO (08:58)
[2023-01-13] MEDS: CLOPIDOGREL BISULFATE 75 MG TABLET PO (08:58)
[2023-01-13] MEDS: FERROUS SULFATE 325 MG TABLET DR PO (08:58)
[2023-01-13] MEDS: guaiFENesin 12 HR 600 MG TABCR PO (08:58)
[2023-01-13] MEDS: CELECOXIB 200 MG CAPSULE PO (08:58)
[2023-01-13] MEDS: FAMOTIDINE 20 MG TABLET 40 MG PO (08:58)
[2023-01-13] MEDS: POTASSIUM CHLORIDE 20 MEQ ER TABLET 40 MEQ PO (08:59)
[2023-01-13] MEDS: TAMSULOSIN HCL 0.4 MG CAPSULE PO (08:59)
[2023-01-13] MEDS: ENOXAPARIN 30 MG/0.3 ML SYRINGE SUB-Q (08:59)
--- NOTE | 2023-01-13 11:45 | PM.DS ---
DS: Admitting Diagnosis Discharge Date 01/13/23 Admitting Diagnosis Fall and brief syncopal episode DS: Discharge Diagnosis Discharge Diagnosis (1) Orthostatic hypotension: Code(s): I95.1 - Orthostatic hypotension Status: Acute (2) Fall: Code(s): W19.XXXA - Unspecified fall, initial encounter Status: Acute (3) Syncope: Code(s): R55 - Syncope and collapse Status: Acute (4) Contusion of soft tissue: Code(s): T14.8XXA - Other injury of unspecified body region, initial encounter Status: Acute (5) Urinary retention with incomplete bladder emptying: Code(s): R33.9 - Retention of urine, unspecified Status: Acute (6) Chronic respiratory failure with hypoxia, on home oxygen therapy: Code(s): J96.11 - Chronic respiratory failure with hypoxia; Z99.81 - Dependence on supplemental oxygen Status: Acute (7) Congestive heart failure: Code(s): I50.9 - Heart failure, unspecified Status: Acute (8) COPD (chronic obstructive pulmonary disease): Code(s): J44.9 - Chronic obstructive pulmonary disease, unspecified Status: Acute (9) Hypertension: Code(s): I10 - Essential (primary) hypertension Status: Acute DS: Summary Hospital Course Reason for hospitalization: 77yo female wit COPD, chronic resp failure on home O2 and CHF here for a fall. Please see H&P for details. Hospital Course: Patient admitted for evaluation and management after a fall.? Patient had a syncopal/presyncopal episode after standing upright from bending over.? Troponin negative x2.? Head CT showed old lacunar infarction right basal ganglia as well as stable extensive nonspecific cerebral white matter disease.? She has a chronic 2.2 cm calcified mass consistent with meningioma.? Urine was clear.? Tele showing no dysrhythmias. Pelvic CT showed no acute osseous abnormalities.? She did have a large right inferior gluteal muscle with subcutaneous contusion.? Cervical spine CT showed no fracture.? Thoraco lumbar spine CT also showing no fracture.? Soft-tissue contusion of the right inferior gluteal muscle currently treated with pain management. She fell again in the hospital after getting up without assistance. No changes noted on neurochecks. She was not on narcotics at the time. Repeat CT head and c-spine showed no acute findings. Repeat hip xrays negative for fracture. Probably orthostatic causing the fall. Orthostatic vital signs were normal initially. Patient's blood pressure dropped to 80/37 with standing. She was also off her budesonide as well but this usually does not have much systemic exposure. Amlodipine was stopped.? Lasix was held.? Shawn melgar added.? Normal saline x1 L. TSH and cortisol levels were normal. She worked with PT/OT. Patient also found to have urinary retention. Urology consulted. 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 Home with indwelling Hernandez and patient will followup with Urology for urodynamics. Patient has COPD with chronic respiratory failure on home oxygen at 3 L. CXR shows hyperinflation but no acute findings otherwise.? We continued inhalers and nebulizer treatments. Patient overall did well. Her orthostatic vital signs improved. She was up walking with staff with walker. She overall did well and was able to be discharged on 01/13/23. She states she is going to her dtr's house. Status at Discharge Cognitive/behavioral status at discharge: stable Time Spent with Patient Time attestation: Total time spent providing and/or coordinating discharge services: 35 minutes Time spent: Greater than 30 minutes Exam Narrative: AF ? 98.1 116/98 98 20 94% 3L Gen - NARD lying semi-recumbent in bed Chest - distant BS with scattered rhonchi. nml RR CV - RRR S1/S2 Abd - soft, NT/ND, +BS - Hernandez secured draining clear yellow urine Ext - No pedal edema. Psych - Nml mood and affect.? Skin - Warm and dry.?
[2023-01-13] MEDS: ACETAMINOPHEN 325 MG TABLET 650 MG PO (16:49)
== END 2023-01-13 18:14 | disposition home health service (06) | DRG 312 ==
LOC: ANHED 13:41 → ANH3MEDSUR 18:16
PROVIDERS: Internal Medicine; Admitting Provider Internal Medicine; Emergency Provider Emergency Medicine; PCP Nurse Practitioner Family; Visit Provider Internal Medicine
DX: I95.1 Orthostatic hypotension (principal); J96.11 Chronic respiratory failure with hypoxia; Z20.822 Contact with and (suspected) exposure to COVID-19; S30.0XXA Contusion of lower back and pelvis, initial encounter; J44.9 Chronic obstructive pulmonary disease, unspecified; I50.9 Heart failure, unspecified; I11.0 Hypertensive heart disease with heart failure; D64.9 Anemia, unspecified; M19.90 Unspecified osteoarthritis, unspecified site; D32.0 Benign neoplasm of cerebral meninges; W18.39XA Other fall on same level, initial encounter; K21.9 Gastro-esophageal reflux disease without esophagitis; I25.10 Atherosclerotic heart disease of native coronary artery without angina pectoris; M81.0 Age-related osteoporosis without current pathological fracture; R00.0 Tachycardia, unspecified; R33.9 Retention of urine, unspecified; Z99.81 Dependence on supplemental oxygen; Z85.828 Personal history of other malignant neoplasm of skin; Z86.73 Personal history of transient ischemic attack (TIA), and cerebral infarction without residual deficits; Z90.49 Acquired absence of other specified parts of digestive tract; Z90.710 Acquired absence of both cervix and uterus; Z90.722 Acquired absence of ovaries, bilateral; Z87.891 Personal history of nicotine dependence
CPT/HCPCS: 36415; 70450; 71045; 72125; 72128; 72131; 72192; 73521; 80048; 80069; 81003; 82533; 82550; 83735; 84443; 84484; 85027; 85610; 85730; 87635; 93005; 94640; 96361; 96374; 96375; 96376; 97161; 97165; 97530; 97535; 99285; A9270; G0378; J1650; J2270; J2405; J7030; J7120

== ENCOUNTER 2023-01-22 14:24 | Inpatient (IN) | payer MEDICARE, MEDICAID, SELFPAY ==
[2023-01-22] VITALS (48 sets, daily range): BP systolic 106–194; BP diastolic 48–112; PULSE 88–146; RESP 17–44; TEMP 36.2–36.8; O2SAT 93–100
--- NOTE | ~2023-01-22 | XR_ITS ---
EXAMINATION: XR chest 1V Exam Date/Time: 01/22/2023 16:55 CDT HISTORY: SOB HEMATURIA, ABDOMINAL PAIN, FEVER AND CHILLS Comparison: 01/08/2023. RESULT: Lines, tubes, and devices: Loop recorder. Lungs and pleura: Senescent changes, otherwise clear. Cardiomediastinal silhouette: Stable. Other: No acute osseous or upper abdominal finding. IMPRESSION: No acute cardiopulmonary process. Reviewed, dictated and finalized at location K.
--- NOTE | ~2023-01-22 | CT_ITS ---
EXAMINATION: CTA chest PE protocol DATE: 01/23/2023 11:06 INDICATION: Shortness of breath. Abdominal pain. TECHNIQUE: Computed tomography angiography (CTA) of the chest was performed with 100 mL Omnipaque-350 intravenous contrast timed to evaluate the pulmonary arteries. Coronal maximum intensity projection 3D-reconstructions were created by the technologist. Automated exposure control and iterative reconst ruction technique were employed. The dose-length product was 176.69 mGy-cm. COMPARISON: Chest CT 06/02/2019, CT thoracic spine 01/08/2023 FINDINGS: There is severe emphysema. Calcified pulmonary nodules and calcified hilar and mediastinal lymph nodes are consistent with old granulomatous disease. There is a 9 mm nodule in left upper lobe. No pleural effusion. The heart size is normal. There are coronary artery calcifications. No pericard ial effusion. Aortic atherosclerosis is noted. There is no pulmonary embolus. There is an electronic implant in left anterior chest wall. Calcifications in the spleen are consistent with old granulomato us disease. There is mild thoracic spondylosis. Thoracic dextroscoliosis is noted. There is a dereje ramya fracture of T12 with 1/5 loss of height. IMPRESSION: 1. No pulmonary embolus. 2. 9 mm pulmonary nodule suspicious for primary bronchogenic carcinoma. Noncontrast low-dose chest CT is recommended in 3 months. 3. Severe emphysema. 4. Acute/subacute T12 compression fracture, new from 01/08/2023. Reviewed, dictated and finalized at location L. IMPRESSION: 1. No pulmonary embolus. 2. 9 mm pulmonary nodule suspicious for primary bronchogenic carcinoma. Noncont rast low-dose chest CT is recommended in 3 months. 3. Severe emphysema. 4. Acute/subacute T12 compression fracture, new from 01/08/2023.
--- NOTE | ~2023-01-22 | US_ITS ---
EXAMINATION: US venous doppler [facility] DATE: 01/23/2023 10:52 INDICATION: Abdominal pain. Shortness of breath. TECHNIQUE: Grayscale ultrasound images without and with compression and Doppler ultrasound images of the bilateral lower extremity veins were obtained. COMPARISON: None. FINDINGS: The visualized portions of right common femoral vein, profunda (deep) femoral vein, femoral vein, pop liteal vein, peroneal veins, posterior tibial veins, and greater saphenous vein outflow are patent. The visualized portions of left common femoral vein, profunda femoral vein, femoral vein, popliteal v ein, peroneal veins, posterior tibial veins, and greater saphenous vein outflow are patent. IMPRESSION: 1. No deep venous thrombosis. Reviewed, dictated and finalized at location L.
--- NOTE | 2023-01-22 15:15 | ED.FEMALEGU ---
HPI - Female Genitourinary General Chief complaint: Urogenital-Female Stated complaint: BLOOD IN URINE Time Seen by Provider: 01/22/23 14:27 History of Present Illness HPI Narrative: 77-year-old female who is anticoagulated on Plavix presents to the emergency room for evaluation of hematuria. Patient was admitted to the hospital on 01/08 for injury sustained following a syncopal glf. During her hospitalization, patient was found to have urinary retention. Urology was consulted and believe she may have had longstanding urinary retention secondary to hypotonic/atonic bladder. Flomax was initiated. Patient was sent home with an indwelling Hernandez catheter with follow-up with urology. Patient's waiting for her urology follow-up. States last night she noticed scant amount of blood in her urine. Woke up this morning with more urine in her Hernandez bag. Patient complains of lower back pain. Patient also complains of lower abdominal tenderness. Denies fevers Related Data Home Medications Medication Instructions Recorded Confirmed albuterol sulfate 90 mcg/actuation 1 puff inhalation Q4H PRN 06/01/19 01/08/23 aerosol inhaler (ProAir HFA) Shortness Of Breath Or Wheezing clopidogrel 75 mg tablet 75 mg PO DAILY 06/01/19 01/08/23 furosemide 40 mg tablet (Lasix) 40 mg PO DAILY 06/02/19 01/08/23 clonazepam 1 mg tablet 1 mg PO TID PRN Anxiety 09/24/21 01/08/23 bempedoic acid 180 mg-ezetimibe 10 1 tablet PO DAILY 01/08/23 01/08/23 mg tablet (Nexlizet) budesonide 3 mg 3 mg PO DAILY 01/08/23 01/08/23 capsule,delayed,extended release celecoxib 200 mg capsule 200 mg PO DAILY 01/08/23 01/08/23 formoterol fumarate 20 mcg/2 mL 20 mcg inhalation BID 01/08/23 01/08/23 solution for nebulization rosuvastatin 10 mg tablet (Crestor) 10 mg PO DAILY 01/08/23 01/08/23 semaglutide 0.25 mg or 0.5 mg (2 0.25 mg subcut WEEKLY 01/08/23 01/08/23 mg/3 mL) subcutaneous pen injector tiotropium bromide 18 mcg capsule 1 cap inhalation DAILY 01/08/23 01/08/23 with inhalation device (Spiriva with HandiHaler) trazodone 100 mg tablet 100 mg PO HS 01/08/23 01/08/23 famotidine 40 mg tablet 40 mg PO DAILY 01/10/23 01/10/23 ferrous sulfate 325 mg (65 mg 325 mg PO DAILY 01/10/23 01/10/23 iron) tablet revefenacin 175 mcg/3 mL solution 175 mcg inhalation DAILY 01/10/23 01/10/23 for nebulization (Yupelri) Allergies Allergy/AdvReac Type Severity Reaction Status Date / Time Penicillins Allergy Unknown hives, Verified 01/22/23 14:36 tongue swelling sertraline AdvReac Mild Other Verified 01/22/23 14:36 Review of Systems Review of Systems: CONSTITUTIONAL: Denies fever, chills, or sweats. EYES: Denies visual changes, redness, or discharge. ENT: Denies rhinorrhea, congestion, sore throat, or otalgia. CARDIOVASCULAR: Denies chest pain, palpitations, or edema. RESPIRATORY: Denies cough or dyspnea. GASTROINTESTINAL: Denies abdominal pain, nausea, vomiting, or diarrhea. GENITOURINARY: Reports hematuria SKIN: Denies rash or itching. MUSCULOSKELETAL: Denies back pain, joint pain, or myalgia. NEUROLOGIC: Denies headache, numbness, dizziness, or weakness. PSYCHIATRIC: Denies anxiety or depression. [facility] Past Medical History Medical History Anemia Anxiety Arthritis Asthma Cerebrovascular accident Chronic obstructive pulmonary disease Chronic respiratory failure with hypoxia, on home oxygen therapy Congestive heart failure Echocardiogram in September 2017 showed normal LV systolic function with an EF of 65% and impaired diastolic relaxation grade 1. Coronary artery disease Depression Hemorrhoids Hypertension Kidney stones Meningioma Osteoporosis Osteoporosis Scoliosis Skin cancer Uterine fibroid Surgical History Surgical History History of appendectomy History of cardiac catheterization Per patient report she had mild coronary artery di
[2023-01-22 15:19] LABS: Basophils Absolute Auto 0.1 K/mm3 (0.0-0.1); Basophils Percent Auto 0.7 % (0.2-1.2); Eosinophils Absolute Auto 0.4 K/mm3 (0-0.3); Eosinophils Percent Auto 4.1 % (0-4.4); Hematocrit 37.2 % (37.0-47.0); Hemoglobin 11.6 g/dL (12.0-15.0); Immature Granulocyte Absolute 0.04 K/mm3 (0.00-0.031); Immature Granulocyte Percent A 0.4 % (0-0.5); Lymphocytes Absolute Auto 1.88 K/mm3 (0.9-3.2); Lymphocytes Percent Auto 20.8 % (18.3-44.2); Mean Corpuscular HGB Conc 31.2 g/dl (32-36); Mean Corpuscular Hemoglobin 30.4 pg (26-34); Mean Corpuscular Volume 97.6 fl (80-100); Mean Platelet Volume 11.5 fl (7.4-10.4); Monocytes Absolute Auto 1.2 K/mm3 (0.1-0.6); Monocytes Percent Auto 12.7 % (2.6-8.5); Neutrophils Absolute Auto 5.6 K/mm3 (1.3-6.7); Neutrophils Percent Auto 61.3 % (45.5-73.1); Platelet Count Result 347 k/mm3 (150-375); Red Blood Count 3.81 M/mm3 (4.2-5.4); Red Cell Distribution Width 15.5 % (11.5-14.5); White Blood Count 9.1 K/mm3 (4.5-10.0)
[2023-01-22 15:23] LABS: Bacteria Urine 1+ /hpf; Non Pathogenic Casts 0-2; RBC Urine >100 /hpf (0-2); Squamous Epithelial Cell Urine None seen /hpf (Few); WBC Urine 21-50 /hpf
[2023-01-22 15:27] LABS: Appearance Urine Slightly Cloudy (Clear); Bilirubin Urine 1+ (Negative); Blood Urine 3+ (Negative); Color Urine Amber (Yellow); Glucose Urine UA Negative (Negative); Ketones Urine Trace mg/dL (Negative); Leukocyte Esterase Ur Trace LEU/UL (Negative); Nitrate Urine Negative (Negative); Protein Urine 2+ mg/dL (Negative); Specific Grav Ur >= 1.030 (1.001-1.035); Urobilinogen Urine 0.2 mg/dL (<2.0); pH Urine 5.5 (5.0-9.0)
[2023-01-22 15:28] LABS: Add Urine Microscopic? YES
[2023-01-22 15:38] LABS: Alanine Aminotransferase 14 U/L (6-35); Albumin Level 3.5 g/dL (3.5-5.1); Alkaline Phosphatase 62 U/L (38-126); Anion Gap 4 mmol/L (8-16); Aspartate Amino Transferase 22 U/L (14-36); Bilirubin,Total 0.4 mg/dL (0.2-1.3); Blood Urea Nitrogen 11 mg/dL (7-17); Calcium 8.7 mg/dL (8.4-10.2); Carbon Dioxide 29 mmol/L (22-30); Chloride 106 mmol/L (98-107); Estimated CRCL calculation 47 ml/min; Estimated Glomerular Filt Rate > 60; Glucose 116 mg/dL (65-110); Sodium 139 mmol/L (137-145)
[2023-01-22 15:46] LABS: Prothrombin Time 13.6 Seconds (11.1-14.7)
[2023-01-22 15:48] LABS: Partial Thromboplastin Time 32.7 SECONDS (22.3-36.8)
--- NOTE | 2023-01-22 15:54 | PC.NURSE ---
Pt c/o feeling sob and needing a neb treatment. Exp wheezes present. Daughter states pt is late for her usual treatment.
[2023-01-22] MEDS: ALBUTEROL SULFATE NEB 2.5 MG/3 ML INH INHALATION ×2 (16:18→21:36)
[2023-01-22] MEDS: ALBUTEROL SULFATE NEB 2.5 MG/3 ML INH (16:26)
--- NOTE | 2023-01-22 16:58 | ECG_ITS ---
Measurements Intervals [place] Rate: 139 P: 80 MN: 132 QRS: 87 QRSD: 89 T: 46 QT: 278 QTc: 423 Interpretive Statements SINUS TACHYCARDIA LOW QRS VOLTAGE IN PRECORDIAL LEADS [QRS DEFLECTION < 1.0 mV IN CHEST LEADS] POSSIBLE OLD aNTEROSEPTAL MYOCARDIAL INFARCTION COMPARED TO ECG 01/08/2023 12:38:38 SINUS TACHYCARDIA NOW PRESENT Electronically Signed On 01-22-2023 19:39:36 CDT by Candy Lopez M.D.
--- NOTE | 2023-01-22 17:32 | PC.NURSE ---
Resting comfortably on cart with bipap. Resp unlabored.
[2023-01-22 17:37] LABS: D Dimer 1.54 ug/mL (<0.48)
[2023-01-22 17:50] LABS: NT Pro B Type Natriuretic Pept 297 pg/mL (19.9-100); Troponin I < 0.012 ng/mL (0.000-0.034)
--- NOTE | 2023-01-22 19:20 | PC.NURSE ---
This RN assumed care of patient. This RN took patient report from HUBER Álvarez.
--- NOTE | 2023-01-22 19:44 | PM.IMHP ---
H&P: HPI History of Present Illness Date/Time: 01/22/23 19:44 Chief Complaint: Blood in your Narrative: This is a 77-year-old female patient who is on Plavix and came to the emergency room to be evaluated for hematuria. The patient was recently discharged from this hospital on 01/13/2023. The patient had urinary tension at that time urology was consulted. 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 She was started on Flomax. Patient home with indwelling Hernandez catheter and was to follow-up with Urology. The patient has a history of COPD with chronic respiratory failure on oxygen at 3 L per nasal cannula. The patient was discharged to her daughter's home and the patient is still awaiting urology follow-up. The patient has a chest x-ray in the emergency room and shows no acute cardiopulmonary process. Her D-dimer was found to be 1.54. Her initial troponin was 0.012 and 2nd 1 was 0.381. BNP 297. The patient appears to have a urinary tract infection. I started the patient on Rocephin. Urology has been consulted. While in the emergency room the patient complained of having a stuffy nose and sneezing and requested a breathing treatment. The patient was given 2 breathing treatments. Of which the patient was found have a respiratory in the 40s and heart rate in the 120s. The patient was thought to be in respiratory distress and was placed on a BiPAP. EKG shows sinus tachycardia with no ischemic changes. Patient had been placed on a BiPAP 18/8 with a rate of 24 and 35%. Once in IMU the patient was re-evaluated she was back to her normal 3 L per nasal cannula that she wears at home. The patient is being admitted to inpatient status on the date of service of 01/23/2020 Review of Systems Review of Systems: All systems reviewed & are unremarkable except as noted in HPI and below Constitutional: Constitutional: Reports as per HPI and Reports no additional constitutional complaints Eyes: Eyes: Reports as per HPI and Reports no additional eye complaints ENT: Reports system reviewed and no additional complaints, except as documented and Reports Normal hearing present Cardiovascular: Cardiovascular: Reports no additional cardiovascular complaints Respiratory: Respiratory: Reports no additional respiratory complaints and Reports no additional respiratory complaints Gastrointestinal: Gastrointestinal: Reports as per HPI and Reports no additional gastrointestinal complaints Musculoskeletal: Musculoskeletal: Reports no additional musculoskeletal complaints Integumentary/Breasts: Skin/Breast: Reports system reviewed and no additional complaints, except as docu and Reports as per HPI Neurologic: Reports system reviewed and no additional complaints, except as documented, Reports as per HPI and Reports Normal hearing present Psychiatric: Psychiatric: Reports no additional psychiatric complaints and Reports as per HPI Endocrine: Endocrine: Reports no additional endocrine complaints Hematologic/Lymphatic: Hematologic/Lymphatic: Reports no additional hematologic/lymphatic complaints Allergic/Immunologic: Allergic/Immunologic: Reports no additional allergic/immunologic complaints [facility] Past Medical History Medical History (Updated 01/22/23 @ 23:35 by Clemencia Anderson NP) Anemia Anxiety Arthritis Asthma Cerebrovascular accident Chronic obstructive pulmonary disease Chronic respiratory failure with hypoxia, on home oxygen therapy Congestive heart failure Echocardiogram in September 2017 showed normal LV systolic function with an EF of 65% and impaired diastolic relaxation grade 1. Coronary artery disease Depression Hemorrhoids Hyperlipidemia Hypertension Kidney stones Meningioma Osteoporosis Osteoporosis Scoliosis Skin cancer Uterine fibroid Surgical History Surgical History History of appendectomy History of cardiac catheterization Per patient report she had mild thornton
[2023-01-22 21:02] LABS: Troponin I 0.381 ng/mL (0.000-0.034)
--- NOTE | 2023-01-22 22:19 | ADMGEN ---
This patient, Roxana Child, was admitted to IMU Room 202-01. Patient/family oriented to hospital policies and general routines including ID bracelet, bed and alarms, visiting hours, pain management, procedures, bathroom and other care routines, personal items, smoking policy, room service/diet, and visiting hours. Information on how to activate the Rapid Response Team has been discussed. Patient/Family are encouraged to report perceived risks to care and to ask questions if they do not understand what they are told or what they should do.
[2023-01-23] VITALS (29 sets, daily range): BP systolic 92–127; BP diastolic 41–63; PULSE 83–112; RESP 18–40; TEMP 36.4–37.2; O2SAT 94–100
[2023-01-23] MEDS: SALINE 0.65% NAS SOLN 44 ML BTL 1 SPRAY NASAL ×2 (00:54→08:54)
[2023-01-23] MEDS: IPRATROPIUM BR 0.02% INH SOLN 0.5 MG/2.5 ML VIAL INHALATION ×2 (01:51→07:22)
[2023-01-23] MEDS: ALBUTEROL SULFATE NEB 2.5 MG/3 ML INH INHALATION ×2 (01:51→07:22)
[2023-01-23 04:42] LABS: Basophils Percent Auto 0.1 % (0.2-1.2); Eosinophils Absolute Auto 0.2 K/mm3 (0-0.3); Eosinophils Percent Auto 1.7 % (0-4.4); Hematocrit 38.9 % (37.0-47.0); Hemoglobin 11.8 g/dL (12.0-15.0); Immature Granulocyte Absolute 0.08 K/mm3 (0.00-0.031); Immature Granulocyte Percent A 0.6 % (0-0.5); Lymphocytes Absolute Auto 0.87 K/mm3 (0.9-3.2); Lymphocytes Percent Auto 6.9 % (18.3-44.2); Mean Corpuscular HGB Conc 30.3 g/dl (32-36); Mean Corpuscular Hemoglobin 29.9 pg (26-34); Mean Corpuscular Volume 98.5 fl (80-100); Mean Platelet Volume 11.7 fl (7.4-10.4); Monocytes Absolute Auto 1.1 K/mm3 (0.1-0.6); Monocytes Percent Auto 8.9 % (2.6-8.5); Neutrophils Absolute Auto 10.3 K/mm3 (1.3-6.7); Neutrophils Percent Auto 81.8 % (45.5-73.1); Platelet Count Result 317 k/mm3 (150-375); Red Blood Count 3.95 M/mm3 (4.2-5.4); Red Cell Distribution Width 15.5 % (11.5-14.5); White Blood Count 12.6 K/mm3 (4.5-10.0)
[2023-01-23 05:04] LABS: Alanine Aminotransferase 16 U/L (6-35); Albumin Level 3.5 g/dL (3.5-5.1); Alkaline Phosphatase 76 U/L (38-126); Anion Gap 4 mmol/L (8-16); Aspartate Amino Transferase 29 U/L (14-36); Bilirubin,Total 0.3 mg/dL (0.2-1.3); Blood Urea Nitrogen 12 mg/dL (7-17); Calcium 8.5 mg/dL (8.4-10.2); Carbon Dioxide 34 mmol/L (22-30); Chloride 105 mmol/L (98-107); Estimated CRCL calculation 41 ml/min; Estimated Glomerular Filt Rate > 60; Glucose 98 mg/dL (65-110); Magnesium 2.1 mg/dL (1.6-2.3); Potassium 4.1 mmol/L (3.4-5.0); Sodium 143 mmol/L (137-145)
--- NOTE | 2023-01-23 07:21 | WPDURCON ---
Assessment and Plan Assessment and plan (1) Urinary retention: Code(s): R33.9 - Retention of urine, unspecified Status: Acute (2) UTI (urinary tract infection): Code(s): N39.0 - Urinary tract infection, site not specified Status: Acute Assessment and Plan: Urinary retention and suspicion of underlying hypotonic/atonic bladder. She will need to leave the indwelling catheter until we can perform outpatient urodynamics. I will see if I can move those sooner. She may have a urinary tract infection. Await final urine culture. Urology Consult Note HPI Date Seen: 01/23/23 Requesting Physician: Christen Young MD Primary Care Provider: Sandra Garsia, COTTON STOMPER Consult Narrative Narrative: Roxana Child is a 77 year old female I first became familiar with during recent admission approximately 10 days ago when she was admitted with syncope. At that time she was found to be in significant urinary retention with a markedly distended bladder. She had relief of pelvic discomfort with an indwelling catheter. She awaits outpatient evaluation with urodynamics. Review of Systems Cardiovascular: Cardiovascular: Denies chest pain, Denies lightheadedness, Denies palpitations and Denies dyspnea Respiratory: Respiratory: Reports dyspnea Gastrointestinal: Gastrointestinal: Denies diarrhea, Denies nausea and Denies vomiting Genitourinary: Genitourinary: Denies hematuria and Denies dysuria Endocrine: Endocrine: Denies palpitations [facility] Past Medical History Medical History (Updated 01/22/23 @ 23:35 by Clemencia Anderson NP) Anemia Anxiety Arthritis Asthma Cerebrovascular accident Chronic obstructive pulmonary disease Chronic respiratory failure with hypoxia, on home oxygen therapy Congestive heart failure Echocardiogram in September 2017 showed normal LV systolic function with an EF of 65% and impaired diastolic relaxation grade 1. Coronary artery disease Depression Hemorrhoids Hyperlipidemia Hypertension Kidney stones Meningioma Osteoporosis Osteoporosis Scoliosis Skin cancer Uterine fibroid Surgical History Surgical History History of appendectomy History of cardiac catheterization Per patient report she had mild coronary artery disease, treated with medical management. History of cataract extraction History of laser assisted in situ keratomileusis History of tonsillectomy History of total hysterectomy with bilateral salpingo-oophorectomy (BSO) For benign uterine fibroids. Status post surgical removal of malignant neoplasm of skin Family History Family History Mother Diabetes mellitus Son CAD (coronary artery disease) Hypertension Social History Social History (Updated 01/22/23 @ 19:47 by Clemencia Anderson NP) Social History: Power of Floriculturist: Shanti Montes, [id number]. 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 Code status: Do not resuscitate. Smoking packs per day: 3 Smoking cigarettes per day: 60.0 Years smoked: 50 Smoking pack-years: 150.00 Smoking status: Former smoker Second hand tobacco smoke exposure: Yes Alcohol intake: never Drinks per week: 2 Substance use: never Substance use type: does not use Lack of Transportation: No Lack of Food: Never True Current Housing: I Have Housing Concerned About Future Housing: No Difficulty Paying Gas/Electric Bills: No Difficulty Paying for Meds: No Currently Unemployed: No Education: High School Diploma/GED Difficulty w/ Childcare or Family Care: No Living arrangements: alone Occupation/Education: retired Spiritual care concerns: No Agree to blood products: Yes Meds Home Medications and Allergies Home Medications Medication Instructions Recorded Confirmed Type albuterol sulfate 90 mcg/actuation 1 puff inhalation Q4H PRN 12/
[2023-01-23] MEDS: BUDESONIDE 3 MG CAP.SR.24H PO (08:49)
[2023-01-23] MEDS: FAMOTIDINE 20 MG TABLET 40 MG PO (08:49)
[2023-01-23] MEDS: METOPROLOL TARTRATE 12.5 MG TABLET PO ×2 (08:49→20:40)
[2023-01-23] MEDS: FERROUS SULFATE 325 MG TABLET DR PO (08:49)
[2023-01-23] MEDS: CELECOXIB 200 MG CAPSULE PO (08:50)
[2023-01-23] MEDS: guaiFENesin 12 HR 600 MG TABCR PO ×2 (08:50→20:39)
[2023-01-23] MEDS: ROSUVASTATIN 10 MG TABLET PO (08:50)
[2023-01-23] MEDS: TAMSULOSIN HCL 0.4 MG CAPSULE PO (08:50)
[2023-01-23] MEDS: clonazePAM (*CRX) 0.5 MG TABLET 1 MG PO (08:50)
[2023-01-23 09:30] LABS: Troponin I 0.901 ng/mL (0.000-0.034)
--- NOTE | 2023-01-23 10:27 | PHAR ---
The patient's home meds of Nexlizet 180/10mg tab, Formoterol 20mcg/2ml, and Yupelri 175mcg/3ml have been verified.
--- NOTE | 2023-01-23 10:52 | PM.IMPN ---
Progress Note: A&P Assessment and Plan (1) Acute and chronic respiratory failure: Code(s): J96.20 - Acute and chronic respiratory failure, unspecified whether with hypoxia or hypercapnia Status: Acute Assessment and Plan: The patient was seen in the ED for hematuria but her respiratory condition worsened requiring BiPAP at 18/8. She had improvement and was able to come off BiPAP and was weaned back down to her home oxygen at 3 L per nasal cannula. CTA chest does not show pulmonary edema or PE. Could be related to COPD exacerbation but no wheezing noted. Consider anxiety related. Continue with nebulizer treatments. Hold on steroids for now. Speech therapy eval to exclude silent aspirations (2) Elevated d-dimer: Code(s): R79.89 - Other specified abnormal findings of blood chemistry Status: Acute Assessment and Plan: D-dimers was 1.54. CTA pulmonary showing no PE but a 9mm pulmonary nodule and severe emphysema. Venous US Dopplers negative for DVT. Continue to monitor. (3) Elevated troponin: Code(s): R77.8 - Other specified abnormalities of plasma proteins Status: Acute Assessment and Plan: No complaints of chest pain. EKG did show sinus tachycardia but no change overall. Trop trending up to 0.9. She does have a history of congestive heart failure but clinically euvolemic. Suspect Type II TN related to the tachycardia and resp failure. Check Echo. Continue metoprolol. Resume plavix since no further hematuria. (4) Hematuria: Code(s): R31.9 - Hematuria, unspecified Status: Acute Assessment and Plan: Patient presents to the emergency room with complaints a hematuria. Probably related to Hernandez trauma. She does have a chronic indwelling Hernandez catheter due to urine retention. Could also be related to UTI. Urinalysis noted. Urine culture pending. Rocephin has been started. Her urine has cleared. Urology has been consulted and appreciate their input. Will continue to monitor. (5) Hypertension: Code(s): I10 - Essential (primary) hypertension Status: Acute Assessment and Plan: Patient's blood pressure was reviewed on 01/23 Blood pressure remains well controlled. Will continue current medications. (6) Congestive heart failure: Code(s): I50.9 - Heart failure, unspecified Status: Acute Assessment and Plan: As above. No recent echo so will reorder. Not on lasix chronically. Follow. (7) Urinary retention with incomplete bladder emptying: Code(s): R33.9 - Retention of urine, unspecified Status: Acute Assessment and Plan: The patient has a indwelling Hernandez catheter and has not yet followed up outpatient with Urology. Urology consulted and appreciate their input. Continue with Flomax (8) UTI (urinary tract infection): Code(s): N39.0 - Urinary tract infection, site not specified Status: Acute Assessment and Plan: UA noted. the patient was started on Rocephin. Blood and urine cultures are pending. Continue Rocephin. (9) Pulmonary nodule: Code(s): R91.1 - Solitary pulmonary nodule Status: Acute Assessment and Plan: CTA of the chest shows 9 mm pulmonary nodule concerning for bronchogenic carcinoma. Will discuss with family about options. Five patient follow-up with her flight manager possible PET scan after discharge. Plan DVT prophylaxis -SCDs Code status -DNR Subjective Date/time seen: 01/23/23 10:52 Interval history: 77yo female with chronic respiratory failure, CHF, COPD and urine retention with chronic indwelling Hernandez here for hematuria but developed resp distress in the ED. Daughter in the room states the patient normally has breathing treatments on regular basis at home and does well. States that the patient developed respiratory distress because she felt there was a delay in getting the nebulizer treatment to the patient.
[2023-01-23] MEDS: LEVALBUTEROL NEB 1.25 MG/3 ML INHALATION ×2 (13:15→20:02)
[2023-01-23 17:31] LABS: Alveolar/Arterial O2 Gradient 72.2 mmHg; Base Excess ABG 2.7 mEq/l (+/-2.0); Fractional Inspired Oxygen 32 %; Oxygen Content ABG 17.1 %vol (16.0-22.0); Oxygen Saturation ABG 97.6 % (95.0-100.0); Oxyhemoglobin 96.5 % THb (90.0-100.0); PCO2 ABG 46.3 mmHg (35.0-45.0); PO2 ABG 101.8 mmHg (80.0-100.0); PO2 FiO2 Ratio Arterial Blood 3.18 %; Total Hemoglobin 12.5 g/dL (12.0-18.0)
[2023-01-23 17:32] LABS: Device NASAL CANNULA; Modified Allen's Test Pass; Site Drawn RIGHT RADIAL
[2023-01-23] MEDS: traZODone HCL 50 MG TABLET 100 MG PO (20:40)
[2023-01-24] VITALS (27 sets, daily range): BP systolic 93–115; BP diastolic 34–51; PULSE 78–105; RESP 16–21; TEMP 36.1–37.7; O2SAT 94–100
--- NOTE | 2023-01-24 | ECHO_ITS ---
Patient Info Name: Roxana Child Age: 77 years : 1945 Gender: Female Ht: 60 in Wt: 128 lbs BSA: 1.58 m2 HR: 92 bpm BP: 106 / 51 mmHg Heart Rhythm: Sinus Rhythm Technical Quality: Fair Exam Date: 01/24/2023 9:16 AM Exam Location: [facility] Pulmonary Patient Status: Inpatient Admit Date: 01/22/2023 Staff Ordering Physician: Chung Deluca MD Entertainment Production Professional: Medina Fontenot RDCS Attending Provider: Christen Young MD Exam Type: CA echo doppler color flow Study Info Indications - ELEVATED TROP Complete two-dimensional, color flow and Doppler transthoracic echocardiogram is performed. Summary 1. Complete two-dimensional, color flow and Doppler transthoracic echocardiogram is performed. 2. Normal left ventricular size with overall normal systolic function. 3. Hypokinesis of the inferobasal segment as well as the inferior portion of the septum. 4. Grade 1 diastolic noncompliance. 5. Mildly sclerotic but not stenotic aortic valve. Left Ventricle Left ventricular chamber dimension is normal. Left ventricular systolic function is normal, estimated at 60-65%. The left ventricular diastolic function is grade I diastolic dysfunction. Right Ventricle Right ventricular chamber dimension is normal. Left Atria Left atrial chamber dimension is normal. Right Atria Right atrial chamber dimension is normal. Aortic Valve The aortic valve is trileaflet. There is mild aortic valve sclerosis. Pulmonic Valve The pulmonic valve is not well visualized. Mitral Valve The mitral valve has normal leaflets. Tricuspid Valve The tricuspid valve leaflets are normal. Pericardium/Pleural The pericardium appears normal. Aorta The aortic root size at the sinus of Valsalva is normal. Left Ventricular Outflow Tract Name Value Normal LVOT 2D LVOT Diameter 2.0 cm LVOT Doppler LVOT Peak Gradient 4 mmHg LVOT Mean Gradient 2 mmHg LVOT VTI 18 cm LVOT VTI/AV VTI Ratio 0.7 LVOT Stroke Volume 55 ml LVOT CO 4.5 l/min LVOT CI 2.9 l/min/m2 Pulmonic Valve Name Value Normal RVOT Doppler RVOT Peak Gradient 2 mmHg PV Doppler PV Peak Gradient 3 mmHg Mitral Valve Name Value Normal MV Doppler MV Decel [place] 436 cm/s2 MV PHT 48 ms MV Area (PHT) 4.5 cm2 4.0-5.0 MV Diastolic Function
[2023-01-24] MEDS: LEVALBUTEROL NEB 1.25 MG/3 ML INHALATION ×4 (01:46→20:12)
[2023-01-24 05:24] LABS: Basophils Percent Auto 0.3 % (0.2-1.2); Eosinophils Absolute Auto 0.5 K/mm3 (0-0.3); Eosinophils Percent Auto 4.7 % (0-4.4); Hematocrit 36.4 % (37.0-47.0); Hemoglobin 11.1 g/dL (12.0-15.0); Immature Granulocyte Absolute 0.05 K/mm3 (0.00-0.031); Immature Granulocyte Percent A 0.5 % (0-0.5); Immature Platelet Fraction Pct 9.2 % (0.9-11.2); Lymphocytes Absolute Auto 0.79 K/mm3 (0.9-3.2); Lymphocytes Percent Auto 7.9 % (18.3-44.2); Mean Corpuscular HGB Conc 30.5 g/dl (32-36); Mean Corpuscular Hemoglobin 30.7 pg (26-34); Mean Corpuscular Volume 100.6 fl (80-100); Mean Platelet Volume 12.5 fl (7.4-10.4); Monocytes Absolute Auto 0.8 K/mm3 (0.1-0.6); Monocytes Percent Auto 7.8 % (2.6-8.5); Neutrophils Absolute Auto 7.9 K/mm3 (1.3-6.7); Neutrophils Percent Auto 78.8 % (45.5-73.1); Platelet Count Result 280 k/mm3 (150-375); Red Blood Count 3.62 M/mm3 (4.2-5.4); Red Cell Distribution Width 15.3 % (11.5-14.5)
[2023-01-24 05:34] LABS: Alanine Aminotransferase 14 U/L (6-35); Albumin Level 3.4 g/dL (3.5-5.1); Alkaline Phosphatase 70 U/L (38-126); Anion Gap 0 mmol/L (8-16); Aspartate Amino Transferase 30 U/L (14-36); Bilirubin,Total 0.5 mg/dL (0.2-1.3); Blood Urea Nitrogen 8 mg/dL (7-17); Calcium 8.4 mg/dL (8.4-10.2); Carbon Dioxide 34 mmol/L (22-30); Chloride 102 mmol/L (98-107); Estimated CRCL calculation 56 ml/min; Estimated Glomerular Filt Rate > 60; Glucose 100 mg/dL (65-110); Potassium 4.6 mmol/L (3.4-5.0); Sodium 136 mmol/L (137-145)
--- NOTE | 2023-01-24 07:00 | ECG_ITS ---
Measurements Intervals [place] Rate: 85 P: 73 DC: 130 QRS: 67 QRSD: 72 T: 125 QT: 396 QTc: 473 Interpretive Statements SINUS RHYTHM RIGHT ATRIAL ENLARGEMENT LOW QRS VOLTAGE [QRS DEFLECTION < 0.5/1.0 mV IN LIMB/CHEST LEADS] SEPTAL MYOCARDIAL INFARCTION , OLD ABNORMAL ECG ] COMPARED TO ECG 01/22/2023 17:00:42 HEART RATE IS REDUCED, NO OTHER SIGNIFICANT CHANGE Electronically Signed On 01-24-2023 13:09:03 CDT by Rivera Little M.D.
[2023-01-24] MEDS: METOPROLOL TARTRATE 12.5 MG TABLET PO ×2 (08:30→20:32)
[2023-01-24] MEDS: ROSUVASTATIN 10 MG TABLET PO (08:30)
[2023-01-24] MEDS: BUDESONIDE 3 MG CAP.SR.24H PO (08:30)
[2023-01-24] MEDS: FAMOTIDINE 20 MG TABLET 40 MG PO (08:30)
[2023-01-24] MEDS: clonazePAM (*CRX) 0.5 MG TABLET 1 MG PO ×2 (08:31→20:32)
[2023-01-24] MEDS: guaiFENesin 12 HR 600 MG TABCR PO ×2 (08:31→20:32)
[2023-01-24] MEDS: CLOPIDOGREL BISULFATE 75 MG TABLET PO (08:31)
[2023-01-24] MEDS: CELECOXIB 200 MG CAPSULE PO (08:31)
[2023-01-24] MEDS: TAMSULOSIN HCL 0.4 MG CAPSULE PO (08:31)
[2023-01-24] MEDS: FERROUS SULFATE 325 MG TABLET DR PO (08:31)
[2023-01-24] MEDS: SALINE 0.65% NAS SOLN 44 ML BTL 1 SPRAY NASAL (08:39)
[2023-01-24] MEDS: NITROFURANTOIN MONOHYD MACROCR 100 MG CAP PO ×2 (09:58→20:32)
--- NOTE | 2023-01-24 10:31 | PCPTNOTE ---
attempted PT eval ~ 930; pt sleeping, unable to arouse her; discussed with HUBER Suh- she stated recently given meds make her tired. And to try eval later.
--- NOTE | 2023-01-24 12:18 | PCSTNOTE ---
Bedside swallowing evaluation completed. Oral peripheral examination results within functional limits. Trials of thin liquid by straw, pureed food by spoon, and solid food by fork in uncontrolled amounts were evaluated. Patient demonstrated no signs of aspiration with any consistency or amount. Per family patient took pills today without any difficulty. Per patient self report she does not think she has any swallowing difficulty, but she says she can't hold very much food at meal time, so she doesn't eat very much, indicative of poor appetite. Her daughter who is present states that patient cannot eat fried foods because they are hard to chew, but otherwise eats what she wants. Patient is able to make her own food choices. Based on this evaluation patient's swallowing is within functional limits. No further speech therapy is recommended. Please note that silent aspiration cannot be ruled out at bedside and can only be evaluated with a modified barium swallow study. Thank you for the referral of this patient.
--- NOTE | 2023-01-24 14:11 | P.CDI_ITS ---
CDI Query Clarification Request Urine Culture from 01/22/23 grew > 100,000 Entercoccus species. Chronic indwelling lloyd catheter documented. Patient started on Rocephin 1 GM IV Q 24hrs. Clarification request - UTI has been documented, chronic indwelling lloyd catheter documented. Please clarify if UTI is: * due to/associated with chronic indwelling lloyd catheter * not due to/associated with chronic indwelling lloyd catheter * unable to determine
--- NOTE | 2023-01-24 14:52 | PM.IMPN ---
Progress Note: A&P Assessment and Plan (1) Acute and chronic respiratory failure: Code(s): J96.20 - Acute and chronic respiratory failure, unspecified whether with hypoxia or hypercapnia Status: Acute Assessment and Plan: The patient was seen in the ED for hematuria but her respiratory condition worsened requiring BiPAP at 18/8. She had improvement and was able to come off BiPAP and was weaned back down to her home oxygen at 3 L per nasal cannula. CTA chest does not show pulmonary edema or PE. Speech evaluation showing no overt aspiration. Could be related to COPD exacerbation but no wheezing noted. Consider anxiety related. Stable on her 3L. Continue with nebulizer treatments. (2) Elevated d-dimer: Code(s): R79.89 - Other specified abnormal findings of blood chemistry Status: Acute Assessment and Plan: D-dimers was 1.54. CTA pulmonary showing no PE but a 9mm pulmonary nodule and severe emphysema. Venous US Dopplers negative for DVT. Continue to monitor. (3) Elevated troponin: Code(s): R77.8 - Other specified abnormalities of plasma proteins Status: Acute Assessment and Plan: No complaints of chest pain. EKG did show sinus tachycardia but no change overall. Trop trending up to 0.9. She does have a history of congestive heart failure but clinically euvolemic. Echo showing EF 60-65% with Grade I diastolic dysfunction and HK inferobasal segment and inferior septum. These changes not appreciated by Echo September 2021. Consider AMI but EKG appears similar to prior with persistent findings of anteroseptal PR. EKG today reviewed showing more anterior-lateral T wave flattening. Continue metoprolol and Plavix. Cardiology consult. Add ASA. (4) Hematuria: Code(s): R31.9 - Hematuria, unspecified Status: Acute Assessment and Plan: Patient presents to the emergency room with complaints a hematuria. Probably related to Hernandez trauma. She does have a chronic indwelling Hernandez catheter due to urine retention. Could also be related to UTI. Urinalysis noted. Urine culture growing Enterococcus. Rocephin was started but will change to Macrobid. Her urine has cleared. Urology was consulted and appreciate their input. Will continue to monitor. (5) Hypertension: Code(s): I10 - Essential (primary) hypertension Status: Acute Assessment and Plan: Patient's blood pressure was reviewed on 8/4 Blood pressure soft at times. Will continue current medications for now. (6) Congestive heart failure: Code(s): I50.9 - Heart failure, unspecified Status: Acute Assessment and Plan: As above. Echo as above. Not on lasix chronically. Follow. (7) Urinary retention with incomplete bladder emptying: Code(s): R33.9 - Retention of urine, unspecified Status: Acute Assessment and Plan: The patient has a indwelling Hernandez catheter and has not yet followed up outpatient with Urology. Urology consulted and appreciate their input. Continue with Flomax (8) UTI (urinary tract infection): Code(s): N39.0 - Urinary tract infection, site not specified Status: Acute Assessment and Plan: UA noted. UCx growing Enterococcus. BCx NGTD. As above. (9) Pulmonary nodule: Code(s): R91.1 - Solitary pulmonary nodule Status: Acute Assessment and Plan: CTA of the chest shows 9 mm pulmonary nodule concerning for bronchogenic carcinoma. Will discuss with family about options. The patient can follow-up with her inspector barrel for possible PET scan after discharge. Plan DVT prophylaxis -SCDs Code status -DNR Subjective Date/time seen: 01/24/23 14:52 Interval history: 77yo female with chronic respiratory failure, CHF, COPD and urine retention with chronic indwelling Hernandez here for hematuria but developed resp distress in the ED. Patient is alert but confused. She denies CP or SOB. R
[2023-01-24] MEDS: ASPIRIN 81 MG CHEWABLE TABLET 324 MG PO (18:44)
[2023-01-25] VITALS (15 sets, daily range): BP systolic 102–111; BP diastolic 46–51; PULSE 78–95; RESP 16–18; TEMP 35.7–36.6; O2SAT 97–100
[2023-01-25] MEDS: LEVALBUTEROL NEB 1.25 MG/3 ML INHALATION ×3 (01:28→13:11)
[2023-01-25 05:12] LABS: Hematocrit 34.8 % (37.0-47.0); Hemoglobin 10.6 g/dL (12.0-15.0); Mean Corpuscular HGB Conc 30.5 g/dl (32-36); Mean Corpuscular Hemoglobin 30.1 pg (26-34); Mean Corpuscular Volume 98.9 fl (80-100); Mean Platelet Volume 11.7 fl (7.4-10.4); Platelet Count Result 277 k/mm3 (150-375); Red Blood Count 3.52 M/mm3 (4.2-5.4); Red Cell Distribution Width 14.8 % (11.5-14.5); White Blood Count 7.6 K/mm3 (4.5-10.0)
[2023-01-25 05:24] LABS: Anion Gap 0 mmol/L (8-16); Blood Urea Nitrogen 8 mg/dL (7-17); Calcium 8.3 mg/dL (8.4-10.2); Carbon Dioxide 36 mmol/L (22-30); Chloride 98 mmol/L (98-107); Estimated CRCL calculation 47 ml/min; Estimated Glomerular Filt Rate > 60; Glucose 98 mg/dL (65-110); Potassium 3.9 mmol/L (3.4-5.0); Sodium 134 mmol/L (137-145)
[2023-01-25] MEDS: BUDESONIDE 3 MG CAP.SR.24H PO (08:26)
[2023-01-25] MEDS: SALINE 0.65% NAS SOLN 44 ML BTL 1 SPRAY NASAL (08:26)
[2023-01-25] MEDS: METOPROLOL TARTRATE 12.5 MG TABLET PO (08:26)
[2023-01-25] MEDS: NITROFURANTOIN MONOHYD MACROCR 100 MG CAP PO (08:27)
[2023-01-25] MEDS: CELECOXIB 200 MG CAPSULE PO (08:27)
[2023-01-25] MEDS: guaiFENesin 12 HR 600 MG TABCR PO (08:27)
[2023-01-25] MEDS: clonazePAM (*CRX) 0.5 MG TABLET 1 MG PO (08:27)
[2023-01-25] MEDS: ROSUVASTATIN 10 MG TABLET PO (08:27)
[2023-01-25] MEDS: ASPIRIN 81 MG CHEWABLE TABLET PO (08:27)
[2023-01-25] MEDS: TAMSULOSIN HCL 0.4 MG CAPSULE PO (08:27)
[2023-01-25] MEDS: CLOPIDOGREL BISULFATE 75 MG TABLET PO (08:27)
[2023-01-25] MEDS: FERROUS SULFATE 325 MG TABLET DR PO (08:27)
[2023-01-25] MEDS: FAMOTIDINE 20 MG TABLET 40 MG PO (08:27)
[2023-01-25] MEDS: ACETAMINOPHEN 325 MG TABLET 650 MG PO (09:30)
--- NOTE | 2023-01-25 09:57 | PM.CNCAR ---
Assessment and Plan Assessment and plan (1) Type 2 NJ (myocardial infarction): Code(s): I21.A1 - Myocardial infarction type 2 Status: Acute Assessment and Plan: Pt developed elevated troponins, likely a result of respiratory distress from COPD, and a type 2 NJ. No EKG changes, but there is a new inferior wall motion abnormality noted on echo. Does have some CP, but nonexertional and none recently. Sounds like the pt does not have significant CAD (unlikely that she would undergo SVT induction and ablation if she did have any significant CAD, and Dr. Rodríguez indicated no CAD in his office note 07/2022). --Cont primary prevention, consider resuming Plavix if hematuria resolves, cont metoprolol, rosuvastatin --CHEMA w/ DR. Rodríguez on discharge (2) COPD exacerbation: Code(s): J44.1 - Chronic obstructive pulmonary disease with (acute) exacerbation Status: Acute Assessment and Plan: COPD on home O2, back to baseline. (3) SVT (supraventricular tachycardia): Code(s): I47.1 - Supraventricular tachycardia Status: Acute Assessment and Plan: H/O PSVT; brief SVT noted on Tele. --Cont metoprolol (4) Pulmonary nodule: Code(s): R91.1 - Solitary pulmonary nodule Status: Acute Assessment and Plan: Suspicious pulmonary nodule. --FU w/ PMD History of Present Illness History of Present Illness Consult date/time: 01/25/23 09:57 Requesting physician: Chung Deluca MD Consult reason: Other (Elevated troponin) Reason For Visit: respiratory distress Narrative: Roxana Child is a 77-year-old female whom we were asked to see at the request of Dr. Deluca for our advice and opinion regarding her elevated troponin size and wall motion abnormalities, in consultation. The patient has a history of COPD on home O2. She also is followed by cardiologists Dr. Jackson And Dr. Castillo; she had an attempted SVT ablation in August 2022; the procedure was terminated due to respiratory distress and prolonged AV block after administration of 24 mg adenosine. She apparently has had a stress test and a cardiac catheterization the past; no history of significant CAD. The patient, who had indwelling Hernandez placed in December, came to the emergency room yesterday with hematuria. She developed respiratory distress in the emergency room which was thought to be perhaps due to her COPD and perhaps a panic attack and became very tachycardic. She was given nebulizers and started on BiPAP in the emergency room. CTA was negative for PE. However her troponins were elevated. The patient states that she does get sharp chest pressure which lasts for a few minutes intermittently, nonexertional, last episode about 3 weeks ago. She states that she has sucky lungs and the episode of shortness of breath in the emergency room was typical for her COPD exacerbations. She did not have any chest pressure with that episode. She states that she still has palpitations at times. Troponins: 0.38, 0.85, 0.90, 0.48 ProBNP: 297 01/22/2023 EKG at 5:00 p.m.: Sinus tachycardia rate 139, nonspecific ST changes, poor R-wave progression, [employer] old septal NJ 01/24/2023 EKG at 10:11 a.m.: NSR, poor R-wave progression, [employer] old septal NJ, possible left atrial enlargement, nonspecific T-wave changes Both EKGs personally reviewed Echo: Overall normal LV function with hypokinesis of the inferobasal segment, as below new compared to the prior echo Review of Systems Constitutional: Constitutional: Denies fever(s) and Reports weakness (Generalized weakness) Comments: ?Weak as a baby. ? Eyes: Eyes: Reports no additional eye complaints ENT: Reports epistaxis (Occasional mild epistaxis) Cardiovascular: Cardiovascular: Reports chest pain, Denies pedal edema, Denies lightheadedness, Reports palpitations and Reports dyspnea Respiratory: Respiratory: Reports chest congestion, Reports cough, Reports dyspnea and Reports dy
--- NOTE | 2023-01-25 11:27 | PM.DS ---
DS: Admitting Diagnosis Discharge Date 01/25/23 Admitting Diagnosis Hematuria DS: Discharge Diagnosis Discharge Diagnosis (1) Acute and chronic respiratory failure: Code(s): J96.20 - Acute and chronic respiratory failure, unspecified whether with hypoxia or hypercapnia Status: Acute (2) Elevated d-dimer: Code(s): R79.89 - Other specified abnormal findings of blood chemistry Status: Acute (3) Elevated troponin: Code(s): R77.8 - Other specified abnormalities of plasma proteins Status: Acute (4) Hematuria: Code(s): R31.9 - Hematuria, unspecified Status: Acute (5) Hypertension: Code(s): I10 - Essential (primary) hypertension Status: Acute (6) Congestive heart failure: Code(s): I50.9 - Heart failure, unspecified Status: Acute (7) Urinary retention with incomplete bladder emptying: Code(s): R33.9 - Retention of urine, unspecified Status: Acute (8) UTI (urinary tract infection): Code(s): N39.0 - Urinary tract infection, site not specified Status: Acute (9) Pulmonary nodule: Code(s): R91.1 - Solitary pulmonary nodule Status: Acute (10) T12 compression fracture: Code(s): S22.080A - Wedge compression fracture of T11-T12 vertebra, initial encounter for closed fracture Status: Acute DS: Summary Hospital Course Reason for hospitalization: 77yo female with chronic respiratory failure, CHF, COPD and urine retention with chronic indwelling Hernandez here for hematuria but developed resp distress in the ED. Please see H&P for details. Hospital Course: The patient was seen in the ED for hematuria but her respiratory condition worsened requiring BiPAP at 18/8. She had improvement and was able to come off BiPAP and was weaned back down to her home oxygen at 3 L per nasal cannula.? CTA chest does not show pulmonary edema or PE. Speech evaluation showing no overt aspiration. Could be related to COPD exacerbation but no wheezing noted. Treated with nebulizer treatments. D-dimers was 1.54. CTA pulmonary showing no PE but a 9mm pulmonary nodule and severe emphysema. Venous US Dopplers negative for DVT. She had elevated Troponin. No complaints of chest pain. EKG did show sinus tachycardia but no change overall. Trop trending up to 0.9. She does have a history of congestive heart failure but clinically euvolemic. Echo showing EF 60-65% with Grade I diastolic dysfunction and HK inferobasal segment and inferior septum. These changes not appreciated by Echo September 2021. We continued metoprolol. Plavix held due to hematuria but able to be resumed. Cardiology consulted and felt the elevated Troponin was related to Type II NE from her respiratory distress and recommended continuing current medications and to follow-up with her [facility] Former. Patient presented to the emergency room with complaints a hematuria.? Probably related to Hernandez trauma.? She does have a chronic indwelling Hernandez catheter due to urine retention.? Could also be related to UTI.? Urinalysis noted.? Urine culture growing Enterococcus.? Rocephin was started but was changed to Macrobid.? Her urine cleared.? Urology was consulted and appreciate their input.?We continued with Flomax. CTA of the chest shows 9 mm pulmonary nodule concerning for bronchogenic carcinoma.?Discussed with family about options.? The patient will follow-up with her academic associate for further evaluation. Also noted was a subacute/acute T12 compression fracture. Patient was hospitalized here for a fall in December at which time showed no T12 fracture (she fell in the hospital but her thoracic spine was not xrayed at that time). She complains of pain mostly around the tail bone but no mid-back pain. Family made aware of this finding. Review of literature shows that bracing not typically done. Patient without symptoms of mid-back pain. Daughter also worried that patient may have trouble getting around so bracing may be imp
== END 2023-01-25 13:40 | disposition home health service (06) | DRG 698 ==
LOC: ANHED 17:24 → ANHIMU 17:58
PROVIDERS: Nurse Practitioner; Admitting Provider Family Medicine; Emergency Provider Nurse Practitioner Family; PCP Nurse Practitioner Family; Visit Provider Internal Medicine
DX: T83.511A Infection and inflammatory reaction due to indwelling urethral catheter, initial encounter (principal); I21.A1 Myocardial infarction type 2; J96.20 Acute and chronic respiratory failure, unspecified whether with hypoxia or hypercapnia; S22.080A Wedge compression fracture of T11-T12 vertebra, initial encounter for closed fracture; F19.20 Other psychoactive substance dependence, uncomplicated; I50.32 Chronic diastolic (congestive) heart failure; I47.1 Supraventricular tachycardia; N39.0 Urinary tract infection, site not specified; B95.2 Enterococcus as the cause of diseases classified elsewhere; R91.1 Solitary pulmonary nodule; R77.8 Other specified abnormalities of plasma proteins; R31.9 Hematuria, unspecified; I11.0 Hypertensive heart disease with heart failure; R33.9 Retention of urine, unspecified; N31.2 Flaccid neuropathic bladder, not elsewhere classified; D64.9 Anemia, unspecified; F41.9 Anxiety disorder, unspecified; I25.10 Atherosclerotic heart disease of native coronary artery without angina pectoris; M81.0 Age-related osteoporosis without current pathological fracture; M41.9 Scoliosis, unspecified; E78.5 Hyperlipidemia, unspecified; W19.XXXA Unspecified fall, initial encounter; J43.9 Emphysema, unspecified; Z66 Do not resuscitate; Z86.73 Personal history of transient ischemic attack (TIA), and cerebral infarction without residual deficits; Z85.828 Personal history of other malignant neoplasm of skin; Z90.49 Acquired absence of other specified parts of digestive tract; Z90.710 Acquired absence of both cervix and uterus; Z90.722 Acquired absence of ovaries, bilateral; Z87.891 Personal history of nicotine dependence; Z99.81 Dependence on supplemental oxygen
CPT/HCPCS: 36415; 36600; 71045; 71275; 80048; 80053; 81001; 82805; 83605; 83735; 83880; 84484; 85025; 85027; 85055; 85380; 85610; 85730; 87040; 87086; 87147; 87181; 87186; 92610; 93005; 93306; 93970; 94640; 97161; 99285; A9270; J0696; Q9967

== ENCOUNTER 2023-02-11 16:52 | Emergency (ER) | payer MEDICARE, MEDICAID, SELFPAY ==
--- NOTE | ~2023-02-11 | XR_ITS ---
EXAMINATION: XR chest 2V DATE: 02/11/2023 18:31 INDICATION: Shortness of breath TECHNIQUE: frontal and lateral views of the chest were obtained. COMPARISON: Chest radiograph dated 01/22/[address] dated 01/23/2023 FINDINGS: Hyperexpansion of lungs with increased lucency and some architectural distortion in the upper lung zo maryam and corresponding bronchovascular crowding in the lower lung zones consistent with emphysema bett er appreciated on prior CT. No focal airspace opacities, pulmonary edema, pleural effusion or pneumot horax. Heart size is normal. Left pectoral implantable risk developer. Mild thoracic dextrocurvature with mild spondylosis. IMPRESSION: 1. Emphysema. No acute cardiopulmonary disease. Reviewed, dictated and finalized at location A.
[2023-02-11 17:41] VITALS: BP 138/69; PULSE 86; RESP 20; TEMP 36.6; O2SAT 100
--- NOTE | 2023-02-11 17:47 | ECG_ITS ---
Measurements Intervals [place] Rate: 74 P: 72 CT: 129 QRS: 55 QRSD: 76 T: 73 QT: 388 QTc: 432 Interpretive Statements SINUS RHYTHM POSSIBLE RIGHT ATRIAL ENLARGEMENT [0.25mV P WAVE] LOW QRS VOLTAGE IN PRECORDIAL LEADS [QRS DEFLECTION < 1.0 mV IN CHEST LEADS] COMPARED TO ECG 01/24/2023 10:11:31 NO SIGNIFICANT CHANGES Electronically Signed On 02-12-2023 11:34:54 CDT by Fabiola Lerma M.D.
[2023-02-11 18:13] LABS: Basophils Percent Auto 0.5 % (0.2-1.2); Eosinophils Absolute Auto 0.6 K/mm3 (0-0.3); Eosinophils Percent Auto 6.9 % (0-4.4); Hemoglobin 12.4 g/dL (12.0-15.0); Immature Granulocyte Absolute 0.03 K/mm3 (0.00-0.031); Immature Granulocyte Percent A 0.3 % (0-0.5); Lymphocytes Absolute Auto 2.23 K/mm3 (0.9-3.2); Lymphocytes Percent Auto 25.1 % (18.3-44.2); Mean Corpuscular HGB Conc 30.2 g/dl (32-36); Mean Corpuscular Hemoglobin 30.6 pg (26-34); Mean Corpuscular Volume 101.2 fl (80-100); Mean Platelet Volume 11.4 fl (7.4-10.4); Neutrophils Percent Auto 56.2 % (45.5-73.1); Platelet Count Result 254 k/mm3 (150-375); Red Blood Count 4.05 M/mm3 (4.2-5.4); Red Cell Distribution Width 14.6 % (11.5-14.5); White Blood Count 8.9 K/mm3 (4.5-10.0)
[2023-02-11 18:23] LABS: Alanine Aminotransferase 17 U/L (6-35); Alkaline Phosphatase 70 U/L (38-126); Anion Gap 7 mmol/L (8-16); Aspartate Amino Transferase 28 U/L (14-36); Bilirubin,Total 0.4 mg/dL (0.2-1.3); Blood Urea Nitrogen 14 mg/dL (7-17); Calcium 8.9 mg/dL (8.4-10.2); Carbon Dioxide 27 mmol/L (22-30); Chloride 103 mmol/L (98-107); Estimated CRCL calculation 41 ml/min; Estimated Glomerular Filt Rate > 60; Glucose 90 mg/dL (65-110); Potassium 4.2 mmol/L (3.4-5.0); Sodium 137 mmol/L (137-145)
== END 2023-02-11 19:27 | disposition left against medical advice (07) ==
PROVIDERS: Emergency Provider Emergency Medicine; PCP Nurse Practitioner Family
DX: R06.02 Shortness of breath (principal)
CPT/HCPCS: 36415; 71046; 80053; 85025; 93005; 99199

== ENCOUNTER 2023-03-07 18:30 | Emergency (ER) | payer MEDICARE, MEDICAID, SELFPAY ==
--- NOTE | ~2023-03-07 | XR_ITS ---
EXAMINATION: XR chest 2V DATE: 03/07/2023 19:02 INDICATION: Shortness of breath TECHNIQUE: AP and lateral views of the chest are obtained. COMPARISON: 02/11/2023 FINDINGS: The lungs are free of acute opacities. No pleural effusion or pneumothorax. The cardiomedia stinal silhouette is normal. There is moderate thoracic spondylosis. A cardiac monitoring device is i mplanted anteromedially in the lower left chest wall. IMPRESSION: 1. No acute cardiopulmonary abnormality. Reviewed, dictated and finalized at location F.
--- NOTE | 2023-03-07 18:35 | ECG_ITS ---
Measurements Intervals [place] Rate: 84 P: 75 TX: 124 QRS: 61 QRSD: 77 T: 71 QT: 375 QTc: 445 Interpretive Statements SINUS RHYTHM LOW QRS VOLTAGE IN PRECORDIAL LEADS BORDERLINE ECG COMPARED TO ECG 02/11/2023 17:51:02 NO SIGNIFICANT CHANGES Electronically Signed On 03-07-2023 20:42:42 CDT by Demarcus Barnard D.O.
[2023-03-07 18:37] VITALS: BP 137/119; PULSE 82; RESP 22; TEMP 36.7; O2SAT 96
[2023-03-07 18:58] LABS: Basophils Percent Auto 0.5 % (0.2-1.2); Eosinophils Absolute Auto 0.3 K/mm3 (0-0.3); Eosinophils Percent Auto 3.4 % (0-4.4); Hematocrit 43.9 % (37.0-47.0); Hemoglobin 13.8 g/dL (12.0-15.0); Immature Granulocyte Absolute 0.03 K/mm3 (0.00-0.031); Immature Granulocyte Percent A 0.4 % (0-0.5); Lymphocytes Absolute Auto 1.76 K/mm3 (0.9-3.2); Mean Corpuscular HGB Conc 31.4 g/dl (32-36); Mean Corpuscular Volume 98.7 fl (80-100); Mean Platelet Volume 12.2 fl (7.4-10.4); Monocytes Absolute Auto 1.1 K/mm3 (0.1-0.6); Monocytes Percent Auto 13.6 % (2.6-8.5); Neutrophils Absolute Auto 4.8 K/mm3 (1.3-6.7); Neutrophils Percent Auto 60.1 % (45.5-73.1); Platelet Count Result 250 k/mm3 (150-375); Red Blood Count 4.45 M/mm3 (4.2-5.4); Red Cell Distribution Width 13.4 % (11.5-14.5)
[2023-03-07 19:11] LABS: Alanine Aminotransferase 17 U/L (6-35); Albumin Level 4.1 g/dL (3.5-5.1); Alkaline Phosphatase 49 U/L (38-126); Anion Gap 2 mmol/L (8-16); Aspartate Amino Transferase 26 U/L (14-36); Bilirubin,Total 0.4 mg/dL (0.2-1.3); Blood Urea Nitrogen 12 mg/dL (7-17); Calcium 9.2 mg/dL (8.4-10.2); Carbon Dioxide 34 mmol/L (22-30); Chloride 102 mmol/L (98-107); Estimated CRCL calculation 41 ml/min; Estimated Glomerular Filt Rate > 60; Glucose 95 mg/dL (65-110); Potassium 3.8 mmol/L (3.4-5.0); Sodium 138 mmol/L (137-145)
--- NOTE | 2023-03-07 20:03 | PC.NURSE ---
Pt decided to leave prior to being seen in stable condition.
== END 2023-03-07 21:35 | disposition left against medical advice (07) ==
PROVIDERS: Emergency Provider General Practice; PCP Nurse Practitioner Family
DX: R06.02 Shortness of breath (principal); Z53.21 Procedure and treatment not carried out due to patient leaving prior to being seen by health care provider
CPT/HCPCS: 36415; 71046; 80053; 85025; 93005; 99199

== ENCOUNTER 2023-03-12 14:43 | Emergency (ER) | payer MEDICARE, MEDICAID, SELFPAY ==
[2023-03-12] VITALS (13 sets, daily range): BP systolic 120–180; BP diastolic 62–88; PULSE 75–90; RESP 16–37; TEMP 36.8; O2SAT 95–97
--- NOTE | ~2023-03-12 | CT_ITS ---
EXAMINATION: CT brain wo con DATE: 03/12/2023 16:52 INDICATION: Dysarthria0 TECHNIQUE: Computed tomography (CT) of the head was performed without intravenous contrast. Sagittal and coronal reconstructions were performed. The mA was adjusted according to patient size. Iterative reconstruction technique was employed. The dose-length product was 605.33 mGy-cm. COMPARISON: head CT dated 01/10/2023 FINDINGS: No acute intracranial hemorrhage, acute infarction or abnormal extra axial fluid collection. Small ol d lacunar infarct at the right caudate nucleus. Unchanged 1.9 x 1.2 x 1.5 cm calcified extra-axial ma ss abutting the falx along the posterior margin of the corpus callosum. There is moderate scattered w ebony matter hypoattenuation consistent with chronic small vessel ischemic disease. Ventricles are no rmal and symmetric. Changes of bilateral intraocular lens replacement. The orbits, paranasal sinuses and mastoid air cells are normal. IMPRESSION: 1. Old lacunar infarct at the right caudate nucleus. No acute intracranial process. 2. Moderate scattered calcific white matter hypoattenuation consistent with chronic small vessel isch emic disease. 3. Unchanged 1.9 cm calcified mass along the falx posterior to the corpus callosum consistent with me ningioma. Reviewed, dictated and finalized at location A. IMPRESSION: 1. Old lacunar infarct at the right caudate nucleus. No acute intracranial proc ess. 2. Moderate scattered calcific white matter hypoattenuation consistent with chr onic small vessel ischemic disease. 3. Unchanged 1.9 cm calcified mass along the falx posterior to the corpus callo sum consistent with meningioma.
--- NOTE | ~2023-03-12 | XR_ITS ---
EXAMINATION: XR chest 2V DATE: 03/12/2023 15:30 INDICATION: Chest pain and confusion TECHNIQUE: frontal and lateral views of the chest were obtained. COMPARISON: Chest radiograph dated 03/07/[address] dated 01/23/2023 FINDINGS: Increased lucency in the upper lung particularly on the right consistent with emphysema better apprec iated on prior CT. Mild streaky left basilar atelectasis. Small calcified nodule at the azygos esopha geal recess of the right lower lobe. No pulmonary edema, pleural effusion or pneumothorax. The cardio mediastinal silhouette is normal. Left pectoral implantable area field manager. Mild upper lumbar levosc oliosis with severe spondylosis. Moderate thoracic spondylosis. IMPRESSION: 1. Emphysema and mild left basilar atelectasis. Reviewed, dictated and finalized at location A.
--- NOTE | 2023-03-12 14:44 | ECG_ITS ---
Measurements Intervals [place] Rate: 84 P: 74 MO: 116 QRS: 70 QRSD: 77 T: 66 QT: 375 QTc: 445 Interpretive Statements SINUS RHYTHM WITH SHORT MO INTERVAL POSSIBLE LEFT ATRIAL ENLARGEMENT LOW QRS VOLTAGE IN PRECORDIAL LEADS CANNOT RULE OUT SEPTAL INFARCT, AGE INDETERMINATE BORDERLINE ST ABNORMALITY- INFERIOR LEADS BASELINE ARTIFACT- I, II, AVR, AVL ABNORMAL ECG COMPARED TO ECG 03/07/2023 18:43:35 NO SIGNIFICANT CHANGES Electronically Signed On 03-12-2023 15:18:05 CDT by Demarcus Barnard D.O.
[2023-03-12 15:28] LABS: Basophils Percent Auto 0.4 % (0.2-1.2); Eosinophils Absolute Auto 0.1 K/mm3 (0-0.3); Eosinophils Percent Auto 1.5 % (0-4.4); Hematocrit 44.3 % (37.0-47.0); Hemoglobin 14.1 g/dL (12.0-15.0); Immature Granulocyte Absolute 0.04 K/mm3 (0.00-0.031); Immature Granulocyte Percent A 0.4 % (0-0.5); Lymphocytes Absolute Auto 1.74 K/mm3 (0.9-3.2); Lymphocytes Percent Auto 18.1 % (18.3-44.2); Mean Corpuscular HGB Conc 31.8 g/dl (32-36); Mean Corpuscular Hemoglobin 30.9 pg (26-34); Mean Corpuscular Volume 97.1 fl (80-100); Mean Platelet Volume 12.5 fl (7.4-10.4); Monocytes Absolute Auto 1.1 K/mm3 (0.1-0.6); Monocytes Percent Auto 11.4 % (2.6-8.5); Neutrophils Absolute Auto 6.6 K/mm3 (1.3-6.7); Neutrophils Percent Auto 68.2 % (45.5-73.1); Platelet Count Result 241 k/mm3 (150-375); Red Blood Count 4.56 M/mm3 (4.2-5.4); Red Cell Distribution Width 13.2 % (11.5-14.5); White Blood Count 9.6 K/mm3 (4.5-10.0)
[2023-03-12 15:39] LABS: Alanine Aminotransferase 17 U/L (6-35); Albumin Level 4.4 g/dL (3.5-5.1); Alkaline Phosphatase 53 U/L (38-126); Anion Gap 7 mmol/L (8-16); Aspartate Amino Transferase 28 U/L (14-36); Bilirubin,Total 0.5 mg/dL (0.2-1.3); Blood Urea Nitrogen 15 mg/dL (7-17); Calcium 9.7 mg/dL (8.4-10.2); Carbon Dioxide 35 mmol/L (22-30); Chloride 100 mmol/L (98-107); Estimated CRCL calculation 43 ml/min; Estimated Glomerular Filt Rate > 60; Glucose 117 mg/dL (65-110); INR 0.9; Lipase 170 U/L (23-300); Prothrombin Time 13.1 Seconds (11.1-14.7); Sodium 142 mmol/L (137-145)
[2023-03-12 15:40] LABS: Partial Thromboplastin Time 26.5 SECONDS (22.3-36.8)
[2023-03-12 15:51] LABS: Troponin I < 0.012 ng/mL (0.000-0.034)
--- NOTE | 2023-03-12 17:22 | ED.GENADULT ---
HPI - General Adult General Chief complaint: Chest Pain Stated complaint: Chest pain/garbled speech Time Seen by Provider: 03/12/23 15:09 History of Present Illness HPI narrative: Patient is a 77-year-old female who presents ER with reports of chest pain and slurred speech. Daughter is unsure what time it began but occurred prior to arrival and patient was still having it when she arrived however patient did not have slurred speech at triage. Patient has a home nurse who is not present during this. Patient resting comfortably at this time and without complaint. Som history obtained from daughter. Patient has a known meningioma. No reports of fall or injury today. Related Data Home Medications Medication Instructions Recorded Confirmed albuterol sulfate 90 mcg/actuation 1 puff inhalation Q4H PRN 06/01/19 01/22/23 aerosol inhaler (ProAir HFA) Shortness Of Breath Or Wheezing clopidogrel 75 mg tablet 75 mg PO DAILY 06/01/19 01/22/23 clonazepam 1 mg tablet 1 mg PO TID PRN Anxiety 09/24/21 01/22/23 bempedoic acid 180 mg-ezetimibe 10 1 tablet PO DAILY 01/08/23 01/22/23 mg tablet (Nexlizet) budesonide 3 mg 3 mg PO DAILY 01/08/23 01/22/23 capsule,delayed,extended release celecoxib 200 mg capsule 200 mg PO DAILY 01/08/23 01/22/23 formoterol fumarate 20 mcg/2 mL 20 mcg inhalation BID 01/08/23 01/22/23 solution for nebulization rosuvastatin 10 mg tablet (Crestor) 10 mg PO DAILY 01/08/23 01/22/23 tiotropium bromide 18 mcg capsule 1 cap inhalation DAILY 01/08/23 01/22/23 with inhalation device (Spiriva with HandiHaler) trazodone 100 mg tablet 100 mg PO HS 01/08/23 01/22/23 famotidine 40 mg tablet 40 mg PO DAILY 01/10/23 01/22/23 ferrous sulfate 325 mg (65 mg 325 mg PO DAILY 01/10/23 01/22/23 iron) tablet revefenacin 175 mcg/3 mL solution 175 mcg inhalation DAILY 01/10/23 01/22/23 for nebulization (Sandi) Allergies Allergy/AdvReac Type Severity Reaction Status Date / Time Penicillins Allergy Unknown hives, Verified 01/22/23 14:36 tongue swelling sertraline AdvReac Mild Other Verified 01/22/23 14:36 Review of Systems Review of Systems: ROS unobtainable: Yes unobtainable due to mental status [facility] Past Medical History Medical History (Updated 03/12/23 @ 18:26 by Tommie Coleman MD) Anemia Anxiety Arthritis Asthma Cerebrovascular accident Chronic obstructive pulmonary disease Chronic respiratory failure with hypoxia, on home oxygen therapy Congestive heart failure Echocardiogram in September 2017 showed normal LV systolic function with an EF of 65% and impaired diastolic relaxation grade 1. Coronary artery disease Not documented Depression H/O: stroke Pt reports h/o stroke Hemorrhoids Hyperlipidemia Hypertension Kidney stones Meningioma pt reports two meningiomas Osteoporosis Osteoporosis Scoliosis Skin cancer SVT (supraventricular tachycardia) Attempted SVT ablation 08/2022 Dr. Castillo; developed resp distress after adenosine and procedure terminated. Type 2 SD (myocardial infarction) Uterine fibroid Surgical History Surgical History History of appendectomy History of cardiac catheterization Per patient report she had mild coronary artery disease, treated with medical management. History of cataract extraction History of laser assisted in situ keratomileusis History of tonsillectomy History of total hysterectomy with bilateral salpingo-oophorectomy (BSO) For benign uterine fibroids. Status post surgical removal of malignant neoplasm of skin Family History Family History Mother Diabetes mellitus Son CAD (coronary artery disease) Hypertension Social History Social History Social History: Power of Cradle Slide Maker: Shanti Montes, [id number]. 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
[2023-03-12 17:44] LABS: Appearance Urine Clear (Clear); Bilirubin Urine Negative (Negative); Blood Urine Negative (Negative); Color Urine Yellow (Yellow); Glucose Urine UA Negative (Negative); Ketones Urine Negative (Negative); Leukocyte Esterase Ur Negative LEU/UL (Negative); Nitrate Urine Negative (Negative); Protein Urine Negative (Negative); Specific Grav Ur 1.014 (1.001-1.035); pH Urine 6.5 (5.0-9.0)
[2023-03-12 17:56] LABS: Add Urine Microscopic? NO
== END 2023-03-12 19:05 | disposition home or self-care (01) ==
PROVIDERS: Emergency Provider Emergency Medicine; PCP Nurse Practitioner Family
DX: R07.9 Chest pain, unspecified (principal); G45.9 Transient cerebral ischemic attack, unspecified; I50.9 Heart failure, unspecified; I11.0 Hypertensive heart disease with heart failure; I25.2 Old myocardial infarction; J44.9 Chronic obstructive pulmonary disease, unspecified; J96.11 Chronic respiratory failure with hypoxia; D32.0 Benign neoplasm of cerebral meninges; E78.5 Hyperlipidemia, unspecified; M81.0 Age-related osteoporosis without current pathological fracture; M19.90 Unspecified osteoarthritis, unspecified site; F41.9 Anxiety disorder, unspecified; Z99.81 Dependence on supplemental oxygen; Z66 Do not resuscitate; Z86.73 Personal history of transient ischemic attack (TIA), and cerebral infarction without residual deficits; Z85.828 Personal history of other malignant neoplasm of skin; Z86.2 Personal history of diseases of the blood and blood-forming organs and certain disorders involving the immune mechanism; Z87.442 Personal history of urinary calculi; Z87.891 Personal history of nicotine dependence; Z98.49 Cataract extraction status, unspecified eye; Z90.710 Acquired absence of both cervix and uterus; Z90.79 Acquired absence of other genital organ(s); Z90.722 Acquired absence of ovaries, bilateral; R94.31 Abnormal electrocardiogram [ECG] [EKG]
CPT/HCPCS: 36415; 70450; 71046; 80053; 81003; 83690; 84484; 85025; 85610; 85730; 93005; 99284

== ENCOUNTER 2023-03-31 17:01 | Observation (INO) | payer MEDICARE, MEDICAID, SELFPAY ==
--- NOTE | ~2023-03-31 | XR_ITS ---
EXAMINATION: XR chest 1V portable Exam Date/Time: 03/31/2023 18:10 CDT HISTORY: AMS Comparison: 03/12/2023. RESULT: Lines, tubes, and devices: Loop recorder. Lungs and pleura: Senescent changes, minimal streaky bibasilar scar, otherwise clear. Granulomatous calcification. Cardiomediastinal silhouette: Stable. Other: No acute osseous or upper abdominal finding. IMPRESSION: No acute cardiopulmonary process. Reviewed, dictated and finalized at location K.
[2023-03-31 17:08] VITALS: BP 135/90; PULSE 79; RESP 18; TEMP 36.5; O2SAT 100
--- NOTE | 2023-03-31 17:13 | ECG_ITS ---
Measurements Intervals [place] Rate: 78 P: 74 MO: 122 QRS: 44 QRSD: 79 T: 58 QT: 370 QTc: 424 Interpretive Statements SINUS RHYTHM POSSIBLE LEFT ATRIAL ENLARGEMENT [-0.1mV P WAVE IN V1/V2] COMPARED TO ECG 03/12/2023 14:46:27 NO SIGNIFICANT CHANGES Electronically Signed On 04-01-2023 15:54:38 CDT by Fabiola Lerma M.D.
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
[2023-03-31 18:37] LABS: Basophils Percent Auto 0.3 % (0.2-1.2); Eosinophils Absolute Auto 0.2 K/mm3 (0-0.3); Eosinophils Percent Auto 1.6 % (0-4.4); Hematocrit 42.1 % (37.0-47.0); Hemoglobin 13.1 g/dL (12.0-15.0); Immature Granulocyte Absolute 0.03 K/mm3 (0.00-0.031); Immature Granulocyte Percent A 0.3 % (0-0.5); Lymphocytes Absolute Auto 1.29 K/mm3 (0.9-3.2); Lymphocytes Percent Auto 13.1 % (18.3-44.2); Mean Corpuscular HGB Conc 31.1 g/dl (32-36); Mean Corpuscular Hemoglobin 31.3 pg (26-34); Mean Corpuscular Volume 100.5 fl (80-100); Mean Platelet Volume 12.4 fl (7.4-10.4); Monocytes Absolute Auto 1.1 K/mm3 (0.1-0.6); Monocytes Percent Auto 11.4 % (2.6-8.5); Neutrophils Absolute Auto 7.2 K/mm3 (1.3-6.7); Neutrophils Percent Auto 73.3 % (45.5-73.1); Platelet Count Result 293 k/mm3 (150-375); Red Blood Count 4.19 M/mm3 (4.2-5.4); White Blood Count 9.8 K/mm3 (4.5-10.0)
[2023-03-31 18:46] LABS: Alanine Aminotransferase 17 U/L (6-35); Albumin Level 4.1 g/dL (3.5-5.1); Alkaline Phosphatase 41 U/L (38-126); Anion Gap 6 mmol/L (8-16); Aspartate Amino Transferase 33 U/L (14-36); Bilirubin,Total 0.6 mg/dL (0.2-1.3); Blood Urea Nitrogen 19 mg/dL (7-17); Calcium 9.3 mg/dL (8.4-10.2); Carbon Dioxide 31 mmol/L (22-30); Chloride 104 mmol/L (98-107); Estimated CRCL calculation 32 ml/min; Estimated Glomerular Filt Rate > 60; Glucose 131 mg/dL (65-110); Potassium 3.9 mmol/L (3.4-5.0); Sodium 141 mmol/L (137-145)
[2023-03-31 18:48] LABS: Appearance Urine Clear (Clear); Bilirubin Urine 1+ (Negative); Blood Urine Negative (Negative); Color Urine Yellow (Yellow); Glucose Urine UA Negative (Negative); Ketones Urine Negative (Negative); Leukocyte Esterase Ur Negative LEU/UL (Negative); Nitrate Urine Negative (Negative); Protein Urine 1+ mg/dL (Negative); Specific Grav Ur >= 1.030 (1.001-1.035); pH Urine 5.5 (5.0-9.0)
[2023-03-31 19:09] LABS: Bacteria Urine None Seen /hpf; Calcium Oxalate Crystals Urine Present /hpf; Mucus Urine Present /lpf; Need Manual Microscopic Reviewed; Non Pathogenic Casts >20; RBC Urine 0-2 /hpf (0-2); Squamous Epithelial Cell Urine Occasional /hpf (Few); WBC Urine 0-5 /hpf
[2023-03-31 19:11] LABS: Add Urine Microscopic? YES
[2023-03-31 19:38] VITALS: PULSE 71; RESP 20; O2SAT 100
[2023-03-31] MEDS: MORPHINE SULFATE (*CRX) 2 MG/ML INJ 1 MG IV PUSH (19:40)
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
[2023-03-31 20:55] VITALS: BP 147/60; PULSE 63; RESP 18; TEMP 36.4; O2SAT 100
--- NOTE | 2023-03-31 21:00 | ADMGEN ---
This patient, Roxana Child, was admitted to 3 [facility] Surg Room 323-02. Patient/family oriented to hospital policies and general routines including ID bracelet, bed and alarms, visiting hours, pain management, procedures, bathroom and other care routines, personal items, smoking policy, room service/diet, and visiting hours. Information on how to activate the Rapid Response Team has been discussed. Patient/Family are encouraged to report perceived risks to care and to ask questions if they do not understand what they are told or what they should do.
[2023-03-31 21:50] VITALS: O2SAT 100
[2023-04-01] MEDS: traZODone HCL 50 MG TABLET 100 MG PO (02:20)
[2023-04-01] MEDS: clonazePAM (*CRX) 0.5 MG TABLET 1 MG PO ×2 (02:20→12:49)
[2023-04-01 05:56] VITALS: BP 132/50; PULSE 84; RESP 18; TEMP 36.7; O2SAT 100
[2023-04-01 08:00] VITALS: O2SAT 98
[2023-04-01 10:12] VITALS: O2SAT 98
--- NOTE | 2023-04-01 10:32 | PM.IMPN ---
Progress Note: A&P Assessment and Plan (1) Dementia with behavioral disturbance: Code(s): F03.918 - Unspecified dementia, unspecified severity, with other behavioral disturbance Status: Acute Assessment and Plan: Hospice patient needing placement Comfort care measures in place (2) Fall from ground level: Code(s): W18.30XA - Fall on same level, unspecified, initial encounter Status: Acute (3) Dementia: Qualifiers: Dementia behavioral or psychological symptom: without behavioral, psychotic, or mood disturbance or anxiety Dementia severity: unspecified severity Dementia type: unspecified type Qualified Code(s): F03.90 - Unspecified dementia, unspecified severity, without behavioral disturbance, psychotic disturbance, mood disturbance, and anxiety Code(s): F03.90 - Unspecified dementia, unspecified severity, without behavioral disturbance, psychotic disturbance, mood disturbance, and anxiety Status: Acute (4) Meningioma: Code(s): D32.9 - Benign neoplasm of meninges, unspecified Status: Acute (5) Chronic obstructive pulmonary disease: Code(s): J44.9 - Chronic obstructive pulmonary disease, unspecified Status: Acute (6) Chronic respiratory failure with hypoxia, on home oxygen therapy: Code(s): J96.11 - Chronic respiratory failure with hypoxia; Z99.81 - Dependence on supplemental oxygen Status: Acute Plan DVT prophylaxis with SCDs GI prophylaxis not indicated Code status DNR 03/31: the patient presented to the emergency department via EMS from home reportedly for evaluation of shortness of breath as detailed in HPI. She has underlying dementia and daughter reports that she has been increasingly confused the last 4 days or so. Today she was very agitated and aggressive with her daughter. She no longer feels that she is able to care for the patient at home. She has been on hospice and she is being admitted as care coordination was unable to find a facility for her at this time. Daughter Shanti is power of dough mixing machine operator and she wishes the patient to be comfortable and declines further workups (declined brain and neck CT). Analgesics available as needed. Her home medications will be reviewed and resumed as appropriate. Subjective Date/time seen: 04/01/23 10:32 Interval history: No overnight events noted. No chest pain or shortness of breath. No nausea, vomiting or diarrhea. No fevers or chills. Review of Systems Review of Systems: 12 point review of systems was assessed and was negative except as noted in the HPI Exam Narrative: General: No acute distress, alert and oriented per baseline HEENT: Atraumatic, normocephalic, mucous membranes moist CV: Regular rate and rhythm, S1, S2 Lungs: Clear to auscultation bilaterally, no rales or crackles noted, no wheezes, good air entry Abdomen: Soft, nontender, nondistended Extremities: Normal to inspection Skin: No rashes noted, no lesions or wounds seen Psych: Euthymic, normal affect Objective Data Vital Signs Vital Signs: Vital Signs - 24 hr 03/31/23 17:08 03/31/23 19:38 03/31/23 20:55 Temperature 97.7 F 97.6 F Pulse Rate 79 71 63 Respiratory Rate 18 20 18 Blood Pressure 135/90 147/60 H Pulse Oximetry 100 100 100 Oxygen Delivery Oxygen Flow Rate 03/31/23 21:50 04/01/23 05:56 04/01/23 10:12 Temperature 98.0 F Pulse Rate 84 Respiratory Rate 18 Blood Pressure 132/50 L Pulse Oximetry 100 100 98 Oxygen Delivery Nasal Cannula Nasal Cannula Oxygen Flow Rate 3 3 Intake/Output Intake/Output: Intake & Output 03/29/23 03/30/23 03/31/23 04/01/23 23:59 23:59 23:59 23:59 Intake Total 500 Output Total 200 Balance -200 500 Meds/Results Medications: Active Medications Generic Name Dose Route Start Last Admin Trade Name Freq PRN Reason Stop Dose Admin Acetaminophen 650 mg 03/31/23 22:35 Acetaminophen 325 Mg Tab
[2023-04-01] MEDS: ACETAMINOPHEN 325 MG TABLET 650 MG PO (11:13)
[2023-04-01 14:00] VITALS: BP 147/68; PULSE 71; RESP 18; TEMP 33.8; O2SAT 100
--- NOTE | 2023-04-01 14:40 | PM.DS ---
DS: Admitting Diagnosis Discharge Date 04/01/23 Admitting Diagnosis ams DS: Discharge Diagnosis Discharge Diagnosis (1) Dementia with behavioral disturbance: Code(s): F03.918 - Unspecified dementia, unspecified severity, with other behavioral disturbance Status: Acute Assessment and Plan: Hospice patient needing placement Comfort care measures in place (2) Fall from ground level: Code(s): W18.30XA - Fall on same level, unspecified, initial encounter Status: Acute (3) Dementia: Qualifiers: Dementia behavioral or psychological symptom: without behavioral, psychotic, or mood disturbance or anxiety Dementia severity: unspecified severity Dementia type: unspecified type Qualified Code(s): F03.90 - Unspecified dementia, unspecified severity, without behavioral disturbance, psychotic disturbance, mood disturbance, and anxiety Code(s): F03.90 - Unspecified dementia, unspecified severity, without behavioral disturbance, psychotic disturbance, mood disturbance, and anxiety Status: Acute (4) Meningioma: Code(s): D32.9 - Benign neoplasm of meninges, unspecified Status: Acute (5) Chronic obstructive pulmonary disease: Code(s): J44.9 - Chronic obstructive pulmonary disease, unspecified Status: Acute (6) Chronic respiratory failure with hypoxia, on home oxygen therapy: Code(s): J96.11 - Chronic respiratory failure with hypoxia; Z99.81 - Dependence on supplemental oxygen Status: Acute Plan DVT prophylaxis with SCDs GI prophylaxis not indicated Code status DNR 03/31: the patient presented to the emergency department via EMS from home reportedly for evaluation of shortness of breath as detailed in HPI. She has underlying dementia and daughter reports that she has been increasingly confused the last 4 days or so. Today she was very agitated and aggressive with her daughter. She no longer feels that she is able to care for the patient at home. She has been on hospice and she is being admitted as care coordination was unable to find a facility for her at this time. Daughter Shanti is power of trust and estates attorney and she wishes the patient to be comfortable and declines further workups (declined brain and neck CT). Analgesics available as needed. Her home medications will be reviewed and resumed as appropriate. DS: Summary Hospital Course Hospital Course: 77-year-old female with dementia, meningioma, chronic respiratory failure on home oxygen, chronic obstructive pulmonary disease, pulmonary nodule, congestive heart failure, and coronary artery disease who presented to the emergency department via EMS from home for evaluation of altered mental status. Placement arranged, patient discharged with hospice support. Please see above and med rec for details. Time Spent with Patient Time attestation: Total time spent providing and/or coordinating discharge services: Exam Narrative: General: No acute distress, alert and oriented per baseline HEENT: Atraumatic, normocephalic, mucous membranes moist CV: Regular rate and rhythm, S1, S2 Lungs: Clear to auscultation bilaterally, no rales or crackles noted, no wheezes, good air entry Abdomen: Soft, nontender, nondistended Extremities: Normal to inspection Skin: No rashes noted, no lesions or wounds seen Psych: Euthymic, normal affect DS: Data Data Completed and Pending Labs on day of discharge: Labs from last 24 hours 03/31/23 03/31/23 18:29 18:22 WBC 9.8 RBC 4.19 L Hgb 13.1 Hct 42.1 MCV 100.5 H MCH 31.3 MCHC 31.1 L RDW 14.0 Plt Count 293 MPV 12.4 H Immature Gran % (Auto) 0.3 Neut % (Auto) 73.3 H Lymph % (Auto) 13.1 L Gilmer % (Auto) 11.4 H Eos % (Auto) 1.6 Baso % (Auto) 0.3 Lymph # (Auto) 1.29 Gilmer # (Auto) 1.1 H Eos # (Auto) 0.2 Baso # (Auto) 0.0 Abs Immat Gran (auto) 0.03 Absolute Neuts (auto) 7.2 H Absolute Nucleated RBC 0.
== END 2023-04-01 18:15 | disposition hospice, inpatient (51) ==
LOC: ANHED 17:35 → ANH3MEDSUR 20:09
PROVIDERS: Admitting Provider Student in an Organized Health Care Education/Training Program; Emergency Provider Physician Assistant; PCP Nurse Practitioner Family; Visit Provider Family Medicine
DX: F03.918 Unspecified dementia, unspecified severity, with other behavioral disturbance (principal); D32.9 Benign neoplasm of meninges, unspecified; W18.30XA Fall on same level, unspecified, initial encounter; D32.0 Benign neoplasm of cerebral meninges; I11.0 Hypertensive heart disease with heart failure; I50.9 Heart failure, unspecified; R91.1 Solitary pulmonary nodule; J44.9 Chronic obstructive pulmonary disease, unspecified; J96.11 Chronic respiratory failure with hypoxia; Z99.81 Dependence on supplemental oxygen; I25.10 Atherosclerotic heart disease of native coronary artery without angina pectoris; M81.0 Age-related osteoporosis without current pathological fracture; I25.2 Old myocardial infarction; E78.5 Hyperlipidemia, unspecified; R11.0 Nausea; D64.9 Anemia, unspecified; I47.10 Supraventricular tachycardia, unspecified; F41.9 Anxiety disorder, unspecified; Z66 Do not resuscitate; Z87.891 Personal history of nicotine dependence; Z86.73 Personal history of transient ischemic attack (TIA), and cerebral infarction without residual deficits; F12.11 Cannabis abuse, in remission; Z79.51 Long term (current) use of inhaled steroids; Z79.02 Long term (current) use of antithrombotics/antiplatelets; Z79.899 Other long term (current) drug therapy
CPT/HCPCS: 36415; 71045; 80053; 81001; 85025; 93005; 96374; 99285; A9270; G0378; J2270